=== PATIENT | male | born 1955 | race Caucasian/White ===

== ENCOUNTER 2020-12-12 10:45 | Inpatient (IN) ==
[2020-12-12] MEDS ORDERED: 0.9 % SODIUM CHLORIDE 2,000 ML IV ONE (11:11)
[2020-12-12 11:50] LABS: POC INR 1.1 (0.8-1.2); POC Pro Time 12.8 sec (11.9-14.5)
[2020-12-12 12:22] LABS: Basophils # (Auto) 0.06 K/mcL (0.00-0.30); Basophils % (Auto) 0.4 % (0.0-2.0); Eosinophils # (Auto) 0.14 K/mcL (0.00-0.70); Hemoglobin 13.3 g/dL (13.7-17.5); Lymphocytes # (Auto) 1.27 K/mcL (1.50-4.80); Lymphocytes % (Auto) 8.7 % (15.5-49.0); Mean Cell Volume 86.4 fL (80.0-100.0); Mean Corpuscular HGB Conc 35.9 g/dL (31.0-36.0); Monocytes # (Auto) 1.29 K/mcL (0.10-0.90); Monocytes % (Auto) 8.9 % (1.0-12.0); Platelet Count 156 K/mcL (140-440); RBC 4.28 M/mcL (4.63-6.08); WBC 14.5 K/mcL (4.5-11.0)
[2020-12-12] MEDS ORDERED: ONDANSETRON 4 MG/2 ML VIAL IV ONE (12:30)
[2020-12-12] MEDS ORDERED: 0.9 % SODIUM CHLORIDE 1,000 ML IV ONE (12:30)
[2020-12-12] MEDS ORDERED: KETOROLAC 30 MG/ML VIAL IV ONE (12:31)
[2020-12-12] MEDS ORDERED: morphine 2 MG/ML VIAL IV ONE ×2 (12:31→22:27)
--- NOTE | 2020-12-12 12:33 | Emergency Department Note ---
Alcohol HPI <Jolene Quiñonez PA-C - Last Filed: 12/13/20 12:58> General Chief Complaint: Alcohol Stated Complaint: alcohol Time Seen by Provider: 12/12/20 11:10 Source: patient Mode of arrival: ambulatory Limitations: no limitations History of Present Illness HPI Narrative: 65-year-old male with history of alcohol use disorder and pancreatitis presents after a 7-day rose of drinking alcohol after being sober for 7 years. His last alcoholic beverage was 2 days ago. He states that he sta rted developing abdominal pain consistent with his history of pancreatitis. He's also had some nausea and vomiting. He called EMS this morning after not being able to get out of bed and EMS reports that he was laying in his own urine and feces. The patient is on pancreatic enzymes. He reports that he's had an episode of pancreatitis in the past. Unknown if he is been through alcohol withdrawals. He does endorse a history of liver cirrhosis. No previous history of GI bleeds. Related Data Home Medications Medication Instructions Recorded Confirmed blood sugar diagnostic 10/29/15 11/19/20 lancets 28 gauge 10/29/15 11/19/20 gabapentin 100 mg capsule 300 mg PO QDAY cap 02/16/20 12/13/20 dicyclomine 10 mg capsule 10 mg PO BID 03/11/20 12/13/20 Previous Rx's Medication Instructions Recorded pravastatin 20 mg tablet 20 mg PO QDAY #90 tab 02/16/20 acyclovir 400 mg tablet 400 mg PO TID PRN #15 tab 05/16/20 allopurinol 100 mg tablet 100 mg PO QDAY #90 tab 10/29/20 finasteride 5 mg tablet 5 mg PO QDAY #90 tab 11/01/20 tamsulosin 0.4 mg capsule 0.4 mg PO QDAY #180 cap 11/01/20 omeprazole 20 mg capsule,delayed 20 mg PO QDAY #90 cap 11/13/20 release losartan 25 mg tablet 25 mg PO QDAY #90 tab 12/12/20 Allergies Allergy/AdvReac Type Severity Reaction Status Date / Time No Known Drug Allergies Allergy Unknown Verified 11/19/20 08:58 [NO KNOWN DRUG ALLERGIES] Grasses/Dust Allergy Unknown Unknown Uncoded 11/19/20 08:58 Review of Systems <Jolene Quiñonez PA-C - Last Filed: 12/13/20 12:58> ROS ROS Narrative: Narrative: All systems ED: reviewed and negative except as stated. [facility] <Jolene Quiñonez PA-C - Last Filed: 12/13/20 12:58> Narrative Patient History Narrative: Narrative: Medical/Surgical/Family History All Active Problems (Updated 12/13/20 @ 12:57 by Jolene Quiñonez PA-C) Anxiety and depression (Chronic) Chronic depression (Chronic) Benign prostatic hyperplasia (Chronic) Enlarged prostate with lower urinary tract symptoms (Chronic) Vitamin D deficiency (Chronic 12/15/13) Relative polycythemia (Chronic) Essential hypertension (Chronic) Allergic rhinitis (Chronic) Periodontitis (Chronic) Gastroesophageal reflux disease (Chronic) Chronic pancreatitis (Chronic) Primary erectile dysfunction (Chronic) Herpes labialis (Chronic) Onychomycosis of toenail (Chronic) Candidiasis of skin (Chronic) Tubular adenoma of colon (Chronic) Hyperlipidemia (Chronic) Gilbert's syndrome (Chronic) Seasonal allergic rhinitis (Chronic) IBS (irritable bowel syndrome) (Chronic) Steatosis of liver (Chronic) History of tobacco use (Chronic) Hepatitis A (Chronic) Overweight (Chronic) Fatigue (Chronic) 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) Arthralgia (Chronic) Diabetes mellitus with nephropathy (Chronic) Hyperuricemia (Chronic) Elevated PSA (Acute) Recurrent cold sores (Acute) Conjunctivitis, left eye (Acute) Redness of eye, left (Acute) Fatigue (Acute) Cirrhosis (Chronic) Acute on chronic pancreatitis (Acute) Rhabdomyolysis (Acute) Acute kidney injury (Acute) Feeling unwell (Acute) Medical History Abdominal pain Allergic rhinitis Anxiety and depression Benign prostatic hyperplasia Candidiasis of skin Chronic depression Chronic pancreatitis Cirrhosis Cough Diabetes mellitus with nephropathy Elbow swelling Enlarged prostate with lower urinary tract symptoms Essential hypertension Fatigue Fatigue Feeling unwell Gastroesophageal reflux disease Gilbert's syndrome Hepatitis A Herpes labialis History of tobacco use Hyperlipidemia Hyperuricemia IBS (irritable bowel syndrome) Knee pain Medicare annual wellness visit, initial Musculoskeletal pain Nausea Need for hepatitis C screening test Obesity On mcc drug therapy Onychomycosis of toenail Overweight Periodontitis Primary erectile dysfunction Recurrent cold sores Redness of eye, left Relative polycythemia Screening for HIV (human immunodeficiency virus) Seasonal allergic rhinitis Steatosis of liver Swelling of knee Tinea corporis Tubular adenoma of colon Vitamin D deficiency (12/15/13) Surgical History H/O colonoscopy (01/11/09) H/O colonoscopy (12/29/16) History of cholecystectomy (~2013) Hx of tonsillectomy Family History Father Hypertension Pulmonary emphysema Mother Hypertension Social History Smoking Status: Former smoker Alcohol Intake Frequency: does not drink Substance Use: former substance user Exam <Jolene Quiñonez PA-C - Last Filed: 12/13/20 12:58> Narrative Narrative: General: AOx3, NAD, nontoxic appearing. Pleasant and conversant. HEENT: PERRL, EOMI, normocephalic. Dry mucous membranes. Normal facies and normal dentition. Chest: Symmetric, no pain to palpation Respiratory: Lungs clear to auscultation bilaterally. No respiratory distress. Unlabored breathing. Heart: Tachycardic rate and regular rhythm, no murmurs/clicks/rubs. Abdomen: Diffusely tender, distended, normal bowel tones. No organomegaly. Extremities: Warm and well perfused. Trace bilateral edema. DP 2+ bilaterally. No venous stasis. Neuro: No focal deficits. Cranial nerves II-XII normal. Skin: Warm dry, no rashes or lesions, no cyanosis. Psych: Normal mood and affect Heme/Lymph: No abnormal bruising General Limitations: no limitations Course <Jolene Quiñonez PA-C - Last Filed: 12/13/20 12:58> Reevaluation(s) Reevaluation #1: CBC, CMP, UA Give IV fluids, IV analgesics and antiemetics Time: 12:55 Reevaluation #2: Patient with episode of SVT with a rate of 184 bpm, vagal maneuvers slowed his rate down to 120 bpm with repeat EKG showing sinus rhythm with frequent PACs. This was staffed with the ER physician who recommended 10 mg of diltiazem. Still awaiting laboratory values to return. Urine dip was without infectious markers. It did note glucose and RBCs. It was not sent for culture. Reevaluation #3: Patient has an JERROD with a creatinine of 1.7 and elevated BUN. His potassium is 5.5 with sodium of 132. He is also noted to have a lipase of 534 consistent with acute pancreatitis. CK is elevated at 909. Troponin is less than 0.01 with multiple repeat EKG showing no acute ischemic changes. Finally, his CBC shows a white blood cell count of 14,500 with neutrophilia and left shift. Lactic acid is 2.0. Additional Reevaluation(s): Patient is receiving another liter of IV fluids. He is given a 2g IV magnesium rider and 100 mg of IV thiamine. He continues to have episodes of SVT. Acute alcohol withdrawal was considered, but his CIWA scores have been around 3. He does appear anxious and we will give him 1 mg of IV Ativan x1 dose for risk of EtOH withdrawal at this time I believe he meets criteria for admission for acute pancreatitis, JERROD, and mild rhabdomyolysis. I have reached out to the hospitalist to discuss admission. Hospitalist service is currently capped and not taking new admissions. The patient has declined transfer out of the area. I have evaluated the patient for functional status and he is currently unable to perform basic ADLs. He has no caregiver at home. Labs are worsening with creatinine now 2.0 and potassium 5.6. At this point I think he needs to stay in the ER for observation and we will continue to look for beds locally in the morning. Vital Signs Vital signs: Vital Signs Temperature 97.3 F 12/12/20 10:46 Pulse Rate 65 12/12/20 10:46 Respiratory Rate 16 12/12/20 10:46 Blood Pressure 139/96 12/12/20 10:46 Pulse Oximetry (%) 98 12/12/20 10:46 Temperature 97.3 F 12/12/20 10:46 Pulse Rate 93 H 12/13/20 22:04 Respiratory Rate 13 12/13/20 22:04 Blood Pressure 142/81 12/13/20 20:30 Pulse Oximetry (%) 99 12/13/20 22:04 [facility] <Jolene Quiñonez PA-C - Last Filed: 12/13/20 12:58> [facility] Narrative Medical decision making narrative: EtOH use disorder Acute on chronic pancreatitis Rhabdomylosis Acute kidney injury Leukocytosis SVT Patient is not safe to discharge home and there are currently no beds available locally. He is declining transfer out of the area. There are potentially beds available here, but we will likely need to wait until tomorrow morning. Patient will remain in the ER tonight for observation. We will repeat labs around mid night. I signed the patient out to Dr. Alberts at change of shift, please see his note for further details and plan of care. Lab Data Result diagrams: 12/13/20 00:15 12/13/20 00:15 Labs: Lab Results 12/12/20 12/12/20 12/12/20 Range/Units 11:34 11:34 11:34 WBC 14.5 H (4.5-11.0) K/mcL RBC 4.28 L (4.63-6.08) M/mcL Hgb 13.3 L (13.7-17.5) g/dL Hct 37.0 L (40.1-51.0) % MCV 86.4 (80.0-100.0) fL MCH 31.1 (26.0-34.0) pg MCHC 35.9 (31.0-36.0) g/dL RDW 13.0 (11.5-14.5) % Plt Count 156 (140-440) K/mcL MPV 10.0 (7.4-10.4) fL Neut % (Auto) 81.0 H (38.0-78.0) % Lymph % (Auto) 8.7 L (15.5-49.0) % [place] % (Auto) 8.9 (1.0-12.0) % Eos % (Auto) 1.0 (0.0-7.0) % Baso % (Auto) 0.4 (0.0-2.0) % Lymph # (Auto) 1.27 L (1.50-4.80) K/mcL [place] # (Auto) 1.29 H (0.10-0.90) K/mcL Eos # (Auto) 0.14 (0.00-0.70) K/mcL Baso # (Auto) 0.06 (0.00-0.30) K/mcL Seg Neutrophils % (38-78) % Band Neutrophils % (0-10) % Lymphocytes % (15-49) % Monocytes % (Manual) (1-12) % Absolute Neutrophils 11.77 H (1.80-8.00) K/mcL Platelet Estimate (Normal) RBC Morphology (Normal) POC PT 12.8 (11.9-14.5) sec POC INR 1.1 (0.8-1.2) VBG Lactic Acid (0.5-2.0) mmol/L Sodium 132 L (133-145) mmol/L Potassium 5.5 H (3.3-5.1) mmol/L Chloride 94 L (96-108) mmol/L Carbon Dioxide 17 L (22-30) mmol/L Anion Gap 21.0 H (8.0-16.0) BUN 64 H (8-23) mg/dL Creatinine 1.7 H (0.7-1.2) mg/dL GFR Calculation 41 Glucose 261 H (70-105) mg/dL Calcium 9.0 (8.6-10.4) mg/dL Total Bilirubin 1.1 H (0.1-1.0) mg/dL AST 106 H (<40) U/L ALT 86 H (<40) U/L Alkaline Phosphatase 113 (39-117) U/L Total Creatine Kinase 909 H (24-195) U/L Troponin T (<0.03) ng/mL Total Protein 7.1 (5.9-8.4) gm/dL Albumin 3.5 (3.2-5.2) gm/dL Globulin 3.6 (2.2-3.7) gm/dL Albumin/Globulin Ratio 1.0 (1.0-2.3) Lipase 534 H (7-60) U/L Ethyl Alcohol (<0.010) gm/dL 12/12/20 12/12/20 12/12/20 Range/Units 11:34 13:16 13:16 WBC (4.5-11.0) K/mcL RBC (4.63-6.08) M/mcL Hgb (13.7-17.5) g/dL Hct (40.1-51.0) % MCV (80.0-100.0) fL MCH (26.0-34.0) pg MCHC (31.0-36.0) g/dL RDW (11.5-14.5) % Plt Count (140-440) K/mcL MPV (7.4-10.4) fL Neut % (Auto) (38.0-78.0) % Lymph % (Auto) (15.5-49.0) % [place] % (Auto) (1.0-12.0) % Eos % (Auto) (0.0-7.0) % Baso % (Auto) (0.0-2.0) % Lymph # (Auto) (1.50-4.80) K/mcL [place] # (Auto) (0.10-0.90) K/mcL Eos # (Auto) (0.00-0.70) K/mcL Baso # (Auto) (0.00-0.30) K/mcL Seg Neutrophils % (38-78) % Band Neutrophils % (0-10) % Lymphocytes % (15-49) % Monocytes % (Manual) (1-12) % Absolute Neutrophils (1.80-8.00) K/mcL Platelet Estimate (Normal) RBC Morphology (Normal) POC PT (11.9-14.5) sec POC INR (0.8-1.2) VBG Lactic Acid 2.0 (0.5-2.0) mmol/L Sodium (133-145) mmol/L Potassium (3.3-5.1) mmol/L Chloride (96-108) mmol/L Carbon Dioxide (22-30) mmol/L Anion Gap (8.0-16.0) BUN (8-23) mg/dL Creatinine (0.7-1.2) mg/dL GFR Calculation Glucose (70-105) mg/dL Calcium (8.6-10.4) mg/dL Total Bilirubin (0.1-1.0) mg/dL AST (<40) U/L ALT (<40) U/L Alkaline Phosphatase (39-117) U/L Total Creatine Kinase (24-195) U/L Troponin T < 0.01 (<0.03) ng/mL Total Protein (5.9-8.4) gm/dL Albumin (3.2-5.2) gm/dL Globulin (2.2-3.7) gm/dL Albumin/Globulin Ratio (1.0-2.3) Lipase (7-60) U/L Ethyl Alcohol < 0.010 (<0.010) gm/dL 12/12/20 12/13/20 12/13/20 Range/Units 15:47 00:15 00:15 WBC 10.8 (4.5-11.0) K/mcL RBC 3.95 L (4.63-6.08) M/mcL Hgb 12.5 L (13.7-17.5) g/dL Hct 33.6 L (40.1-51.0) % MCV 85.1 (80.0-100.0) fL MCH 31.6 (26.0-34.0) pg MCHC 37.2 H (31.0-36.0) g/dL RDW 12.8 (11.5-14.5) % Plt Count 126 L (140-440) K/mcL MPV 9.6 (7.4-10.4) fL Neut % (Auto) (38.0-78.0) % Lymph % (Auto) (15.5-49.0) % [place] % (Auto) (1.0-12.0) % Eos % (Auto) (0.0-7.0) % Baso % (Auto) (0.0-2.0) % Lymph # (Auto) (1.50-4.80) K/mcL [place] # (Auto) (0.10-0.90) K/mcL Eos # (Auto) (0.00-0.70) K/mcL Baso # (Auto) (0.00-0.30) K/mcL Seg Neutrophils % 76 (38-78) % Band Neutrophils % 1 (0-10) % Lymphocytes % 15 (15-49) % Monocytes % (Manual) 8 (1-12) % Absolute Neutrophils (1.80-8.00) K/mcL Platelet Estimate Decreased A (Normal) RBC Morphology Normal (Normal) POC PT (11.9-14.5) sec POC INR (0.8-1.2) VBG Lactic Acid (0.5-2.0) mmol/L Sodium 134 132 L (133-145) mmol/L Potassium 5.6 H 4.8 (3.3-5.1) mmol/L Chloride 99 98 (96-108) mmol/L Carbon Dioxide 19 L 21 L (22-30) mmol/L Anion Gap 16.0 13.0 (8.0-16.0) BUN 58 H 61 H (8-23) mg/dL Creatinine 2.0 H 2.0 H (0.7-1.2) mg/dL GFR Calculation 33 33 Glucose 238 H 253 H (70-105) mg/dL Calcium 8.0 L 7.9 L (8.6-10.4) mg/dL Total Bilirubin 1.0 1.1 H (0.1-1.0) mg/dL AST 84 H 69 H (<40) U/L ALT 71 H 69 H (<40) U/L Alkaline Phosphatase 96 96 (39-117) U/L Total Creatine Kinase 485 H (24-195) U/L Troponin T (<0.03) ng/mL Total Protein 6.1 6.3 (5.9-8.4) gm/dL Albumin 2.9 L 3.0 L (3.2-5.2) gm/dL Globulin 3.2 3.3 (2.2-3.7) gm/dL Albumin/Globulin Ratio 0.9 L 0.9 L (1.0-2.3) Lipase (7-60) U/L Ethyl Alcohol (<0.010) gm/dL ED POC Tests ED POC Tests: [place] - SARS Antigen Negative Discharge Plan Patient/Caregiver Discharge Instructions Pt seen by GROUNDSKEEPER SUPERVISOR/PA only: No Clinical Impression: Acute on chronic pancreatitis, Rhabdomyolysis, Acute kidney injury Patient Disposition: Xfer As Inpt ([facility]) Condition: Fair Follow up with: Cordell Cruz MD [Primary Care Provider] - Prescriptions: No Action acyclovir 400 mg tablet 400 mg PO TID PRN (Reason: cold sores) Qty: 15 RF: 2 allopurinol 100 mg tablet 100 mg PO QDAY Qty: 90 RF: 1 omeprazole 20 mg capsule,delayed release(DR/EC) 20 mg PO QDAY Qty: 90 RF: 1 losartan 25 mg tablet 25 mg PO QDAY Qty: 90 RF: 1 (DME) blood sugar diagnostic [True Metrix Glucose Test Strip] strip See Dose Instructions .ROUTE .MEDSUPPLY RF: 0 (DME) lancets [TRUEplus Lancets] 28 gauge misc See Dose Instructions .ROUTE .MEDSUPPLY RF: 0 gabapentin 100 mg capsule 300 mg PO QDAY RF: 0 pravastatin 20 mg tablet 20 mg PO QDAY Qty: 90 RF: 1 dicyclomine 10 mg capsule 10 mg PO BID RF: 0 tamsulosin [Flomax] 0.4 mg capsule 0.4 mg PO QDAY Qty: 180 RF: 5 finasteride 5 mg tablet 5 mg PO QDAY Qty: 90 RF: 3
[2020-12-12 12:40] LABS: Alcohol, Blood < 10.0 mg/dL; Alcohol,Blood < 0.010 gm/dL (<0.010)
[2020-12-12 12:44] LABS: ALT/SGPT 86 U/L (<40); AST/SGOT 106 U/L (<40); Albumin 3.5 gm/dL (3.2-5.2); Alkaline Phosphatase 113 U/L (39-117); Bilirubin,Total 1.1 mg/dL (0.1-1.0); Blood Urea Nitrogen 64 mg/dL (8-23); Carbon Dioxide 17 mmol/L (22-30); Chloride 94 mmol/L (96-108); Creatine Kinase 909 U/L (24-195); Globulin 3.6 gm/dL (2.2-3.7); Glomerular Filtration Rate 41; Glucose 261 mg/dL (70-105)
[2020-12-12] MEDS ORDERED: ADENOSINE 3 MG/ML VIAL IV ONE (12:54)
[2020-12-12] MEDS ORDERED: morphine 4 MG/ML VIAL IV ONE (13:02)
[2020-12-12] MEDS ORDERED: DILTIAZEM 25 MG/5 ML VIAL IV ONE (13:02)
--- NOTE | 2020-12-12 13:05 | Emergency Department Note ---
ED Note Addendum Note Addendum: I evaluated and treated this patient in conjunction with the LAUREN. I agree with their documented history, examination and medical decision making as documented separately. I also evaluated the patient in person with the following additional findings: Patient is complaining of abdominal pain. Mucous membranes are dry. His abdomen is soft and moderately tender to palpation diffusely without guarding or rebound tenderness. Patient developed rapid narrow complex tachycardia at approximately 1 PM. I evaluated him in person. He performed vagal maneuvers with a passive leg raise and had transient resolution of the apparent supraventricular tachycardia. However, he quickly had redevelopment of rapid narrow complex tachycardia that appears consistent with SVT or a flutter with a 2-1 block. We will administer diltiazem and reassess. EKG performed at 12:55 PM: Atrial flutter with block, rate 184. Grossly normal P axis. Normal QRS and QTc duration. No ST segment deviation. No old EKG immediately available for comparison. EKG was interpreted by me. EKG performed at 2:03 PM: Sinus rhythm with few PACs, rate 102. Normal P wave QRS and T wave morphology. No ST segment deviation. Normal NC QRS and QTc duration. Compared to the prior EKG sinus rhythm has replaced atrial flutter as the rhythm. There are no ischemic changes. EKG was interpreted by me.
[2020-12-12] MEDS ORDERED: THIAMINE 100 MG in 0.9 % SODIUM CHLORIDE 50 ML IV ONE (14:08)
[2020-12-12] MEDS ORDERED: MAGNESIUM SULFATE 2 GM/50 ML BAG IV ONE (14:27)
[2020-12-12] MEDS ORDERED: LORazepam 2 MG/ML VIAL IV ONE (14:28)
[2020-12-12] MEDS ORDERED: THIAMINE 100 MG/ML VIAL ONE (15:54)
[2020-12-12 16:41] LABS: ALT/SGPT 71 U/L (<40); AST/SGOT 84 U/L (<40); Albumin 2.9 gm/dL (3.2-5.2); Albumin/Globulin Ratio 0.9 (1.0-2.3); Alkaline Phosphatase 96 U/L (39-117); Blood Urea Nitrogen 58 mg/dL (8-23); Carbon Dioxide 19 mmol/L (22-30); Chloride 99 mmol/L (96-108); Globulin 3.2 gm/dL (2.2-3.7); Glomerular Filtration Rate 33; Glucose 238 mg/dL (70-105)
[2020-12-13 00:48] LABS: Hematocrit 33.6 % (40.1-51.0); Hemoglobin 12.5 g/dL (13.7-17.5); Mean Cell Volume 85.1 fL (80.0-100.0); Mean Corpuscular HGB Conc 37.2 g/dL (31.0-36.0); Mean Platelet Volume 9.6 fL (7.4-10.4); Platelet Count 126 K/mcL (140-440); RBC 3.95 M/mcL (4.63-6.08); Red Cell Distribution Width 12.8 % (11.5-14.5); WBC 10.8 K/mcL (4.5-11.0)
[2020-12-13 01:04] LABS: ALT/SGPT 69 U/L (<40); AST/SGOT 69 U/L (<40); Albumin/Globulin Ratio 0.9 (1.0-2.3); Alkaline Phosphatase 96 U/L (39-117); Bilirubin,Total 1.1 mg/dL (0.1-1.0); Blood Urea Nitrogen 61 mg/dL (8-23); Calcium 7.9 mg/dL (8.6-10.4); Carbon Dioxide 21 mmol/L (22-30); Chloride 98 mmol/L (96-108); Creatine Kinase 485 U/L (24-195); Globulin 3.3 gm/dL (2.2-3.7); Glomerular Filtration Rate 33; Glucose 253 mg/dL (70-105)
[2020-12-13] MEDS ORDERED: morphine 2 MG/ML VIAL IV ONE ×2 (01:24→04:49)
[2020-12-13 07:15] LABS: Band Neutrophils % 1 % (0-10); Lymphocytes % 15 % (15-49); Monocytes % (Manual) 8 % (1-12); Platelet Estimate DECREASED (Normal); RBC Morphology NORMAL (Normal); Segmented Neutrophils % 76 % (38-78)
--- NOTE | 2020-12-13 08:10 | Emergency Department Note ---
Course Vital Signs Vital signs: Vital Signs Temperature 97.3 F 12/12/20 10:46 Pulse Rate 65 12/12/20 10:46 Respiratory Rate 16 12/12/20 10:46 Blood Pressure 139/96 12/12/20 10:46 Pulse Oximetry (%) 98 12/12/20 10:46 Temperature 97.3 F 12/12/20 10:46 Pulse Rate 98 H 12/13/20 14:01 Respiratory Rate 21 12/13/20 14:01 Blood Pressure 141/85 12/13/20 14:01 Pulse Oximetry (%) 97 12/13/20 14:01 [facility] MDM Narrative Medical decision making narrative: I assumed care from Dr. Alberts at the change of shift. I evaluated the patient in person at 8 AM. He is resting comfortably and awakens to verbal stimuli. He denies pain at this time but is having continued nausea. Mucous membranes appear significantly dry. We will continue IV hydration and continue to search for inpatient placement as his renal function remains significantly below his baseline. Patient was admitted to the hospitalist service. Lab Data Lab results reviewed: Yes I reviewed the patient's lab results. Result diagrams: 12/13/20 00:15 12/13/20 00:15 Labs: Lab Results 12/12/20 12/12/20 12/12/20 Range/Units 11:34 11:34 11:34 WBC 14.5 H (4.5-11.0) K/mcL RBC 4.28 L (4.63-6.08) M/mcL Hgb 13.3 L (13.7-17.5) g/dL Hct 37.0 L (40.1-51.0) % MCV 86.4 (80.0-100.0) fL MCH 31.1 (26.0-34.0) pg MCHC 35.9 (31.0-36.0) g/dL RDW 13.0 (11.5-14.5) % Plt Count 156 (140-440) K/mcL MPV 10.0 (7.4-10.4) fL Neut % (Auto) 81.0 H (38.0-78.0) % Lymph % (Auto) 8.7 L (15.5-49.0) % [place] % (Auto) 8.9 (1.0-12.0) % Eos % (Auto) 1.0 (0.0-7.0) % Baso % (Auto) 0.4 (0.0-2.0) % Lymph # (Auto) 1.27 L (1.50-4.80) K/mcL [place] # (Auto) 1.29 H (0.10-0.90) K/mcL Eos # (Auto) 0.14 (0.00-0.70) K/mcL Baso # (Auto) 0.06 (0.00-0.30) K/mcL Seg Neutrophils % (38-78) % Band Neutrophils % (0-10) % Lymphocytes % (15-49) % Monocytes % (Manual) (1-12) % Absolute Neutrophils 11.77 H (1.80-8.00) K/mcL Platelet Estimate (Normal) RBC Morphology (Normal) POC PT 12.8 (11.9-14.5) sec POC INR 1.1 (0.8-1.2) VBG Lactic Acid (0.5-2.0) mmol/L Sodium 132 L (133-145) mmol/L Potassium 5.5 H (3.3-5.1) mmol/L Chloride 94 L (96-108) mmol/L Carbon Dioxide 17 L (22-30) mmol/L Anion Gap 21.0 H (8.0-16.0) BUN 64 H (8-23) mg/dL Creatinine 1.7 H (0.7-1.2) mg/dL GFR Calculation 41 Glucose 261 H (70-105) mg/dL Calcium 9.0 (8.6-10.4) mg/dL Total Bilirubin 1.1 H (0.1-1.0) mg/dL AST 106 H (<40) U/L ALT 86 H (<40) U/L Alkaline Phosphatase 113 (39-117) U/L Total Creatine Kinase 909 H (24-195) U/L Troponin T (<0.03) ng/mL Total Protein 7.1 (5.9-8.4) gm/dL Albumin 3.5 (3.2-5.2) gm/dL Globulin 3.6 (2.2-3.7) gm/dL Albumin/Globulin Ratio 1.0 (1.0-2.3) Lipase 534 H (7-60) U/L Ethyl Alcohol (<0.010) gm/dL 12/12/20 12/12/20 12/12/20 Range/Units 11:34 13:16 13:16 WBC (4.5-11.0) K/mcL RBC (4.63-6.08) M/mcL Hgb (13.7-17.5) g/dL Hct (40.1-51.0) % MCV (80.0-100.0) fL MCH (26.0-34.0) pg MCHC (31.0-36.0) g/dL RDW (11.5-14.5) % Plt Count (140-440) K/mcL MPV (7.4-10.4) fL Neut % (Auto) (38.0-78.0) % Lymph % (Auto) (15.5-49.0) % [place] % (Auto) (1.0-12.0) % Eos % (Auto) (0.0-7.0) % Baso % (Auto) (0.0-2.0) % Lymph # (Auto) (1.50-4.80) K/mcL [place] # (Auto) (0.10-0.90) K/mcL Eos # (Auto) (0.00-0.70) K/mcL Baso # (Auto) (0.00-0.30) K/mcL Seg Neutrophils % (38-78) % Band Neutrophils % (0-10) % Lymphocytes % (15-49) % Monocytes % (Manual) (1-12) % Absolute Neutrophils (1.80-8.00) K/mcL Platelet Estimate (Normal) RBC Morphology (Normal) POC PT (11.9-14.5) sec POC INR (0.8-1.2) VBG Lactic Acid 2.0 (0.5-2.0) mmol/L Sodium (133-145) mmol/L Potassium (3.3-5.1) mmol/L Chloride (96-108) mmol/L Carbon Dioxide (22-30) mmol/L Anion Gap (8.0-16.0) BUN (8-23) mg/dL Creatinine (0.7-1.2) mg/dL GFR Calculation Glucose (70-105) mg/dL Calcium (8.6-10.4) mg/dL Total Bilirubin (0.1-1.0) mg/dL AST (<40) U/L ALT (<40) U/L Alkaline Phosphatase (39-117) U/L Total Creatine Kinase (24-195) U/L Troponin T < 0.01 (<0.03) ng/mL Total Protein (5.9-8.4) gm/dL Albumin (3.2-5.2) gm/dL Globulin (2.2-3.7) gm/dL Albumin/Globulin Ratio (1.0-2.3) Lipase (7-60) U/L Ethyl Alcohol < 0.010 (<0.010) gm/dL 12/12/20 12/13/20 12/13/20 Range/Units 15:47 00:15 00:15 WBC 10.8 (4.5-11.0) K/mcL RBC 3.95 L (4.63-6.08) M/mcL Hgb 12.5 L (13.7-17.5) g/dL Hct 33.6 L (40.1-51.0) % MCV 85.1 (80.0-100.0) fL MCH 31.6 (26.0-34.0) pg MCHC 37.2 H (31.0-36.0) g/dL RDW 12.8 (11.5-14.5) % Plt Count 126 L (140-440) K/mcL MPV 9.6 (7.4-10.4) fL Neut % (Auto) (38.0-78.0) % Lymph % (Auto) (15.5-49.0) % [place] % (Auto) (1.0-12.0) % Eos % (Auto) (0.0-7.0) % Baso % (Auto) (0.0-2.0) % Lymph # (Auto) (1.50-4.80) K/mcL [place] # (Auto) (0.10-0.90) K/mcL Eos # (Auto) (0.00-0.70) K/mcL Baso # (Auto) (0.00-0.30) K/mcL Seg Neutrophils % 76 (38-78) % Band Neutrophils % 1 (0-10) % Lymphocytes % 15 (15-49) % Monocytes % (Manual) 8 (1-12) % Absolute Neutrophils (1.80-8.00) K/mcL Platelet Estimate Decreased A (Normal) RBC Morphology Normal (Normal) POC PT (11.9-14.5) sec POC INR (0.8-1.2) VBG Lactic Acid (0.5-2.0) mmol/L Sodium 134 132 L (133-145) mmol/L Potassium 5.6 H 4.8 (3.3-5.1) mmol/L Chloride 99 98 (96-108) mmol/L Carbon Dioxide 19 L 21 L (22-30) mmol/L Anion Gap 16.0 13.0 (8.0-16.0) BUN 58 H 61 H (8-23) mg/dL Creatinine 2.0 H 2.0 H (0.7-1.2) mg/dL GFR Calculation 33 33 Glucose 238 H 253 H (70-105) mg/dL Calcium 8.0 L 7.9 L (8.6-10.4) mg/dL Total Bilirubin 1.0 1.1 H (0.1-1.0) mg/dL AST 84 H 69 H (<40) U/L ALT 71 H 69 H (<40) U/L Alkaline Phosphatase 96 96 (39-117) U/L Total Creatine Kinase 485 H (24-195) U/L Troponin T (<0.03) ng/mL Total Protein 6.1 6.3 (5.9-8.4) gm/dL Albumin 2.9 L 3.0 L (3.2-5.2) gm/dL Globulin 3.2 3.3 (2.2-3.7) gm/dL Albumin/Globulin Ratio 0.9 L 0.9 L (1.0-2.3) Lipase (7-60) U/L Ethyl Alcohol (<0.010) gm/dL ED POC Tests ED POC Tests: [place] - SARS Antigen Negative Discharge Plan Patient/Caregiver Discharge Instructions Pt seen by PREPAR[facility] SAMPLES AND REPAIRS/PA only: No Clinical Impression: Acute on chronic pancreatitis, Rhabdomyolysis, Acute kidney injury Patient Disposition: Xfer As Inpt ([facility]) Condition: Fair Follow up with: Cordell Cruz MD [Primary Care Provider] - Prescriptions: No Action acyclovir 400 mg tablet 400 mg PO TID PRN (Reason: cold sores) Qty: 15 RF: 2 allopurinol 100 mg tablet 100 mg PO QDAY Qty: 90 RF: 1 omeprazole 20 mg capsule,delayed release(DR/EC) 20 mg PO QDAY Qty: 90 RF: 1 losartan 25 mg tablet 25 mg PO QDAY Qty: 90 RF: 1 (DME) blood sugar diagnostic [True Metrix Glucose Test Strip] strip See Dose Instructions .ROUTE .MEDSUPPLY RF: 0 (DME) lancets [TRUEplus Lancets] 28 gauge misc See Dose Instructions .ROUTE .MEDSUPPLY RF: 0 gabapentin 100 mg capsule 300 mg PO QDAY RF: 0 pravastatin 20 mg tablet 20 mg PO QDAY Qty: 90 RF: 1 dicyclomine 10 mg capsule 10 mg PO BID RF: 0 tamsulosin [Flomax] 0.4 mg capsule 0.4 mg PO QDAY Qty: 180 RF: 5 finasteride 5 mg tablet 5 mg PO QDAY Qty: 90 RF: 3
[2020-12-13] MEDS: ONDANSETRON 4 MG/2 ML VIAL IV PRN ×2 (08:50→17:18)
[2020-12-13] MEDS: LACTATED RINGERS 1,000 ML IV SCH ×4 (10:10→23:43)
--- NOTE | 2020-12-13 12:59 | Emergency Department Note ---
Course Vital Signs Vital signs: Vital Signs Temperature 97.3 F 12/12/20 10:46 Pulse Rate 65 12/12/20 10:46 Respiratory Rate 16 12/12/20 10:46 Blood Pressure 139/96 12/12/20 10:46 Pulse Oximetry (%) 98 12/12/20 10:46 Temperature 97.3 F 12/12/20 10:46 Pulse Rate 103 H 12/13/20 15:00 Respiratory Rate 12 12/13/20 15:00 Blood Pressure 141/88 12/13/20 15:00 Pulse Oximetry (%) 98 12/13/20 15:00 MDM MDM Narrative Medical decision making narrative: I participated in the parent care of this patient with Dr. Pelaez today and signed the patient out to Dr. Marshall for admission. Lab Data Result diagrams: 12/13/20 00:15 12/13/20 00:15 Labs: Lab Results 12/12/20 12/12/20 12/12/20 Range/Units 11:34 11:34 11:34 WBC 14.5 H (4.5-11.0) K/mcL RBC 4.28 L (4.63-6.08) M/mcL Hgb 13.3 L (13.7-17.5) g/dL Hct 37.0 L (40.1-51.0) % MCV 86.4 (80.0-100.0) fL MCH 31.1 (26.0-34.0) pg MCHC 35.9 (31.0-36.0) g/dL RDW 13.0 (11.5-14.5) % Plt Count 156 (140-440) K/mcL MPV 10.0 (7.4-10.4) fL Neut % (Auto) 81.0 H (38.0-78.0) % Lymph % (Auto) 8.7 L (15.5-49.0) % Stokes % (Auto) 8.9 (1.0-12.0) % Eos % (Auto) 1.0 (0.0-7.0) % Baso % (Auto) 0.4 (0.0-2.0) % Lymph # (Auto) 1.27 L (1.50-4.80) K/mcL Stokes # (Auto) 1.29 H (0.10-0.90) K/mcL Eos # (Auto) 0.14 (0.00-0.70) K/mcL Baso # (Auto) 0.06 (0.00-0.30) K/mcL Seg Neutrophils % (38-78) % Band Neutrophils % (0-10) % Lymphocytes % (15-49) % Monocytes % (Manual) (1-12) % Absolute Neutrophils 11.77 H (1.80-8.00) K/mcL Platelet Estimate (Normal) RBC Morphology (Normal) POC PT 12.8 (11.9-14.5) sec POC INR 1.1 (0.8-1.2) VBG Lactic Acid (0.5-2.0) mmol/L Sodium 132 L (133-145) mmol/L Potassium 5.5 H (3.3-5.1) mmol/L Chloride 94 L (96-108) mmol/L Carbon Dioxide 17 L (22-30) mmol/L Anion Gap 21.0 H (8.0-16.0) BUN 64 H (8-23) mg/dL Creatinine 1.7 H (0.7-1.2) mg/dL GFR Calculation 41 Glucose 261 H (70-105) mg/dL Calcium 9.0 (8.6-10.4) mg/dL Total Bilirubin 1.1 H (0.1-1.0) mg/dL AST 106 H (<40) U/L ALT 86 H (<40) U/L Alkaline Phosphatase 113 (39-117) U/L Total Creatine Kinase 909 H (24-195) U/L Troponin T (<0.03) ng/mL Total Protein 7.1 (5.9-8.4) gm/dL Albumin 3.5 (3.2-5.2) gm/dL Globulin 3.6 (2.2-3.7) gm/dL Albumin/Globulin Ratio 1.0 (1.0-2.3) Lipase 534 H (7-60) U/L Ethyl Alcohol (<0.010) gm/dL 12/12/20 12/12/20 12/12/20 Range/Units 11:34 13:16 13:16 WBC (4.5-11.0) K/mcL RBC (4.63-6.08) M/mcL Hgb (13.7-17.5) g/dL Hct (40.1-51.0) % MCV (80.0-100.0) fL MCH (26.0-34.0) pg MCHC (31.0-36.0) g/dL RDW (11.5-14.5) % Plt Count (140-440) K/mcL MPV (7.4-10.4) fL Neut % (Auto) (38.0-78.0) % Lymph % (Auto) (15.5-49.0) % Stokes % (Auto) (1.0-12.0) % Eos % (Auto) (0.0-7.0) % Baso % (Auto) (0.0-2.0) % Lymph # (Auto) (1.50-4.80) K/mcL Stokes # (Auto) (0.10-0.90) K/mcL Eos # (Auto) (0.00-0.70) K/mcL Baso # (Auto) (0.00-0.30) K/mcL Seg Neutrophils % (38-78) % Band Neutrophils % (0-10) % Lymphocytes % (15-49) % Monocytes % (Manual) (1-12) % Absolute Neutrophils (1.80-8.00) K/mcL Platelet Estimate (Normal) RBC Morphology (Normal) POC PT (11.9-14.5) sec POC INR (0.8-1.2) VBG Lactic Acid 2.0 (0.5-2.0) mmol/L Sodium (133-145) mmol/L Potassium (3.3-5.1) mmol/L Chloride (96-108) mmol/L Carbon Dioxide (22-30) mmol/L Anion Gap (8.0-16.0) BUN (8-23) mg/dL Creatinine (0.7-1.2) mg/dL GFR Calculation Glucose (70-105) mg/dL Calcium (8.6-10.4) mg/dL Total Bilirubin (0.1-1.0) mg/dL AST (<40) U/L ALT (<40) U/L Alkaline Phosphatase (39-117) U/L Total Creatine Kinase (24-195) U/L Troponin T < 0.01 (<0.03) ng/mL Total Protein (5.9-8.4) gm/dL Albumin (3.2-5.2) gm/dL Globulin (2.2-3.7) gm/dL Albumin/Globulin Ratio (1.0-2.3) Lipase (7-60) U/L Ethyl Alcohol < 0.010 (<0.010) gm/dL 12/12/20 12/13/20 12/13/20 Range/Units 15:47 00:15 00:15 WBC 10.8 (4.5-11.0) K/mcL RBC 3.95 L (4.63-6.08) M/mcL Hgb 12.5 L (13.7-17.5) g/dL Hct 33.6 L (40.1-51.0) % MCV 85.1 (80.0-100.0) fL MCH 31.6 (26.0-34.0) pg MCHC 37.2 H (31.0-36.0) g/dL RDW 12.8 (11.5-14.5) % Plt Count 126 L (140-440) K/mcL MPV 9.6 (7.4-10.4) fL Neut % (Auto) (38.0-78.0) % Lymph % (Auto) (15.5-49.0) % Stokes % (Auto) (1.0-12.0) % Eos % (Auto) (0.0-7.0) % Baso % (Auto) (0.0-2.0) % Lymph # (Auto) (1.50-4.80) K/mcL Stokes # (Auto) (0.10-0.90) K/mcL Eos # (Auto) (0.00-0.70) K/mcL Baso # (Auto) (0.00-0.30) K/mcL Seg Neutrophils % 76 (38-78) % Band Neutrophils % 1 (0-10) % Lymphocytes % 15 (15-49) % Monocytes % (Manual) 8 (1-12) % Absolute Neutrophils (1.80-8.00) K/mcL Platelet Estimate Decreased A (Normal) RBC Morphology Normal (Normal) POC PT (11.9-14.5) sec POC INR (0.8-1.2) VBG Lactic Acid (0.5-2.0) mmol/L Sodium 134 132 L (133-145) mmol/L Potassium 5.6 H 4.8 (3.3-5.1) mmol/L Chloride 99 98 (96-108) mmol/L Carbon Dioxide 19 L 21 L (22-30) mmol/L Anion Gap 16.0 13.0 (8.0-16.0) BUN 58 H 61 H (8-23) mg/dL Creatinine 2.0 H 2.0 H (0.7-1.2) mg/dL GFR Calculation 33 33 Glucose 238 H 253 H (70-105) mg/dL Calcium 8.0 L 7.9 L (8.6-10.4) mg/dL Total Bilirubin 1.0 1.1 H (0.1-1.0) mg/dL AST 84 H 69 H (<40) U/L ALT 71 H 69 H (<40) U/L Alkaline Phosphatase 96 96 (39-117) U/L Total Creatine Kinase 485 H (24-195) U/L Troponin T (<0.03) ng/mL Total Protein 6.1 6.3 (5.9-8.4) gm/dL Albumin 2.9 L 3.0 L (3.2-5.2) gm/dL Globulin 3.2 3.3 (2.2-3.7) gm/dL Albumin/Globulin Ratio 0.9 L 0.9 L (1.0-2.3) Lipase (7-60) U/L Ethyl Alcohol (<0.010) gm/dL ED POC Tests ED POC Tests: [place] - SARS Antigen Negative Discharge Plan Patient/Caregiver Discharge Instructions Pt seen by MECHANICAL DESIGN DRAFTER/PA only: No Clinical Impression: Acute on chronic pancreatitis, Rhabdomyolysis, Acute kidney injury Patient Disposition: Xfer As Inpt ([facility]) Condition: Fair Follow up with: Cordell Cruz MD [Primary Care Provider] - Prescriptions: No Action acyclovir 400 mg tablet 400 mg PO TID PRN (Reason: cold sores) Qty: 15 RF: 2 allopurinol 100 mg tablet 100 mg PO QDAY Qty: 90 RF: 1 omeprazole 20 mg capsule,delayed release(DR/EC) 20 mg PO QDAY Qty: 90 RF: 1 losartan 25 mg tablet 25 mg PO QDAY Qty: 90 RF: 1 (DME) blood sugar diagnostic [True Metrix Glucose Test Strip] strip See Dose Instructions .ROUTE .MEDSUPPLY RF: 0 (DME) lancets [TRUEplus Lancets] 28 gauge misc See Dose Instructions .ROUTE .MEDSUPPLY RF: 0 gabapentin 100 mg capsule 300 mg PO QDAY RF: 0 pravastatin 20 mg tablet 20 mg PO QDAY Qty: 90 RF: 1 dicyclomine 10 mg capsule 10 mg PO BID RF: 0 tamsulosin [Flomax] 0.4 mg capsule 0.4 mg PO QDAY Qty: 180 RF: 5 finasteride 5 mg tablet 5 mg PO QDAY Qty: 90 RF: 3
[2020-12-13] MEDS ORDERED: DOCUSATE SODIUM 100 MG CAPSULE PO ONE (16:28)
[2020-12-13] MEDS ORDERED: ACETAMINOPHEN (PP) 325MG TABLET (#50) PO ONE (18:04)
[2020-12-13] MEDS ORDERED: ACETAMINOPHEN 325 MG TABLET PO ONE (18:08)
--- NOTE | 2020-12-13 19:14 | Internal Med History&Physical ---
HPI History of Present Illness Patient information: Note initiated : 12/13/20 at 6:58 pm Service Date, if different from initiated Date: [] Patient: Cruz Mccormick 65 y/o M admitted on for alcohol. Chief Complaint: [] History of present illness: Mr. Mccormick is a 65 year old male with a history of hypertension, hyperlipidemia, GERD, gout, liver cirrhosis, alcohol use disorder, multiple prior episodes of acute pancreatitis attributed to alcohol who presented to the ED after a several week binge that culminated in abdominal pain characteristic for acute pancreatitis. In the ED the patient had an elevated lipase of 534 gastric pain. The patient also had an acute kidney injury. Patient also had leukocytosis that resolved with IV fluids. Hospital medicine was asked to admit the patient for acute pancreatitis felt to be secondary to alcohol. Review of the patient's prior did not reveal any evidence of cholelithiasis. In the ED, the patient was able to keep down some liquids. He was started on IV fluid and analgesics with morphine IV as needed. The patient does say that he has a history of severe alcohol withdrawal. Prior to the recent events the patient says that he has been sober for years. Review of systems Constitutional: no fever, fatigue, or weight loss Eyes: no vision changes or pain Cardiovascular: no chest pain, no palpitations Respiratory: no cough or dyspnea Gastrointestinal: positive for abdominal pain and constipation Genitourinary: no dysuria or difficulty voiding Musculoskeletal: no arthralgia Integumentary: no skin lesion or wound Neurological: no focal weakness or numbness Psychiatric: no anxiety or depression Physical exam Head: Atraumatic, normal inspection. Eyes: normal appearance, no scleral icterus. Neck: full ROM Respiratory: no respiratory distress. Cardiovascular: normal rate and rhythm, S1, S2. GI/Abdominal: distended, decrease bowel sounds, diffuse tenderness, no guarding Extremities: right lower extremity pitting edema, full range of motion, nontender. Neurological: CN II-XII intact, intact motor, intact sensation. Psychiatric: normal mood. Skin: warm, normal color PFSH PFSH All Active Problems (Updated 12/13/20 @ 12:57 by Jolene Quiñonez PA-C) Anxiety and depression (Chronic) Chronic depression (Chronic) Benign prostatic hyperplasia (Chronic) Enlarged prostate with lower urinary tract symptoms (Chronic) Vitamin D deficiency (Chronic 12/15/13) Relative polycythemia (Chronic) Essential hypertension (Chronic) Allergic rhinitis (Chronic) Periodontitis (Chronic) Gastroesophageal reflux disease (Chronic) Chronic pancreatitis (Chronic) Primary erectile dysfunction (Chronic) Herpes labialis (Chronic) Onychomycosis of toenail (Chronic) Candidiasis of skin (Chronic) Tubular adenoma of colon (Chronic) Hyperlipidemia (Chronic) Gilbert's syndrome (Chronic) Seasonal allergic rhinitis (Chronic) IBS (irritable bowel syndrome) (Chronic) Steatosis of liver (Chronic) History of tobacco use (Chronic) Hepatitis A (Chronic) Overweight (Chronic) Fatigue (Chronic) 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) Arthralgia (Chronic) Diabetes mellitus with nephropathy (Chronic) Hyperuricemia (Chronic) Elevated PSA (Acute) Recurrent cold sores (Acute) Conjunctivitis, left eye (Acute) Redness of eye, left (Acute) Fatigue (Acute) Cirrhosis (Chronic) Acute on chronic pancreatitis (Acute) Rhabdomyolysis (Acute) Acute kidney injury (Acute) Feeling unwell (Acute) Medical History Abdominal pain Allergic rhinitis Anxiety and depression Benign prostatic hyperplasia Candidiasis of skin Chronic depression Chronic pancreatitis Cirrhosis Cough Diabetes mellitus with nephropathy Elbow swelling Enlarged prostate with lower urinary tract symptoms Essential hypertension Fatigue Fatigue Feeling unwell Gastroesophageal reflux disease Gilbert's syndrome Hepatitis A Herpes labialis History of tobacco use Hyperlipidemia Hyperuricemia IBS (irritable bowel syndrome) Knee pain Medicare annual wellness visit, initial Musculoskeletal pain Nausea Need for hepatitis C screening test Obesity On senior care drug therapy Onychomycosis of toenail Overweight Periodontitis Primary erectile dysfunction Recurrent cold sores Redness of eye, left Relative polycythemia Screening for HIV (human immunodeficiency virus) Seasonal allergic rhinitis Steatosis of liver Swelling of knee Tinea corporis Tubular adenoma of colon Vitamin D deficiency (12/15/13) Surgical History H/O colonoscopy (01/11/09) H/O colonoscopy (12/29/16) History of cholecystectomy (~2013) Hx of tonsillectomy Family History Father Hypertension Pulmonary emphysema Mother Hypertension Social History household members: alone marital status: single education level: master's degree occupational status: unemployed and retired sexually active: Yes physical activity: none alcohol intake frequency: does not drink substance use type: former substance user seatbelt use: always working smoke detector in home: Yes firearms in home: No MEDS/ALLERGIES Home Medications and Allergies Home Medications Medication Instructions Recorded Confirmed Type blood sugar diagnostic 10/29/15 11/19/20 History lancets 28 gauge 10/29/15 11/19/20 History gabapentin 100 mg capsule 300 mg PO QDAY cap 02/16/20 12/13/20 History pravastatin 20 mg tablet 20 mg PO QDAY #90 tab 02/16/20 12/13/20 Rx dicyclomine 10 mg capsule 10 mg PO BID 03/11/20 12/13/20 History acyclovir 400 mg tablet 400 mg PO TID PRN #15 tab 05/16/20 12/13/20 Rx allopurinol 100 mg tablet 100 mg PO QDAY #90 tab 10/29/20 12/13/20 Rx finasteride 5 mg tablet 5 mg PO QDAY #90 tab 11/01/20 12/13/20 Rx tamsulosin 0.4 mg capsule 0.4 mg PO QDAY #180 cap 11/01/20 12/13/20 Rx omeprazole 20 mg capsule,delayed 20 mg PO QDAY #90 cap 11/13/20 12/13/20 Rx release losartan 25 mg tablet 25 mg PO QDAY #90 tab 12/12/20 12/13/20 Rx Allergies Allergy/AdvReac Type Severity Reaction Status Date / Time No Known Drug Allergies Allergy Unknown Verified 11/19/20 08:58 [NO KNOWN DRUG ALLERGIES] Grasses/Dust Allergy Unknown Unknown Uncoded 11/19/20 08:58 EXAM Constitutional Vitals: Temp Pulse Resp BP Pulse Ox 97.3 F 96 H 14 149/79 100 12/12/20 10:46 12/13/20 18:00 12/13/20 18:00 12/13/20 18:00 12/13/20 18:00 DATA Data Completed and Pending Labs: Labs from last 24 hours 12/13/20 12/13/20 00:15 00:15 WBC 10.8 RBC 3.95 L Hgb 12.5 L Hct 33.6 L MCV 85.1 MCH 31.6 MCHC 37.2 H RDW 12.8 Plt Count 126 L MPV 9.6 Seg Neutrophils % 76 Band Neutrophils % 1 Lymphocytes % 15 Monocytes % (Manual) 8 Platelet Estimate Decreased A RBC Morphology Normal Sodium 132 L Potassium 4.8 Chloride 98 Carbon Dioxide 21 L Anion Gap 13.0 BUN 61 H Creatinine 2.0 H GFR Calculation 33 Glucose 253 H Calcium 7.9 L Total Bilirubin 1.1 H AST 69 H ALT 69 H Alkaline Phosphatase 96 Total Creatine Kinase 485 H Total Protein 6.3 Albumin 3.0 L Globulin 3.3 Albumin/Globulin Ratio 0.9 L A/P Narrative A/P Narrative: Assessment: 65 year old male with a history of hypertension, hyperlipidemia, GERD, gout, liver cirrhosis, alcohol use disorder, multiple prior episodes of acute pancreatitis attributed alcohol now admitted for acute pancreatitis likely secondary to alcohol. #Acute pancreatitis likely due to alcohol #Acute kidney injury #Elevated LFTs #Hyperglycemia #Hyponatremia #Thrombocytopenia #Possible bright red blood per rectum #Right lower extremity edema #Hypertension #Hyperlipidemia #BPH #Alcohol use disorder Plan -IV fluid, analgesic prn. -Monitor renal function and urine output. -Hold home Losartan, continue other essential home meds. -Montor LFTs. -Check CRP, Triglycerides, Hemoglobin A1C. -SSI-low. -Right lower extremity venous duplex. -Monitor stool for evidence of GI bleed. -Consider CT abdomen/pelvis if no improvement by day 3. -CIWA scoring, vitamin supplementation. -Clear liquid diet. -DVT ppx: heparin -Code status: Tab Cutter Spent With Patient Time: Total time spent is greater than 50% in coordination of care (as documented) at patient's floor/unit and/or counseling patient:
--- NOTE | 2020-12-13 19:21 | EKG ---
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
--- NOTE | 2020-12-13 19:22 | EKG ---
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
[2020-12-13] MEDS ORDERED: NALOXONE HCL 0.4 MG/ML VIAL IV PRN (22:48)
[2020-12-13] MEDS ORDERED: DEXTROSE 50% 50 ML VIAL IV PRN (22:48)
[2020-12-13] MEDS ORDERED: ONDANSETRON 4 MG/2 ML VIAL IV PRN (22:48)
[2020-12-13] MEDS ORDERED: LACTULOSE 20 GM/30 ML ORAL.SOL PO PRN (22:48)
[2020-12-13] MEDS ORDERED: DEXTROSE 31 GM ORAL.SUSP PO PRN (22:48)
[2020-12-13] MEDS: 0.9 % SODIUM CHLORIDE 10 ML SYRINGE IV SCH (23:01)
[2020-12-13] MEDS: HEPARIN 5,000 UNIT/ML VIAL SQ SCH (23:01)
[2020-12-13] MEDS: SENNOSIDES 1 TABLET PO SCH (23:02)
[2020-12-13] MEDS ORDERED: HEPARIN 5,000 UNIT/ML VIAL ONE (23:04)
[2020-12-13] MEDS: HYDROmorphone 0.5 MG/0.5 ML SYRINGE IV PRN (23:38)
[2020-12-13] MEDS ORDERED: HYDROmorphone 0.5 MG/0.5 ML SYRINGE ONE (23:41)
[2020-12-13] MEDS: INSULIN LISPRO 1 UNIT/0.01 ML UNIT SQ SCH (23:42)
[2020-12-14 01:20] LABS: ALT/SGPT 55 U/L (<40); AST/SGOT 53 U/L (<40); Albumin/Globulin Ratio 0.9 (1.0-2.3); Alkaline Phosphatase 96 U/L (39-117); Bilirubin,Direct 0.5 mg/dL (<0.3); Bilirubin,Total 0.9 mg/dL (0.1-1.0); Blood Urea Nitrogen 50 mg/dL (8-23); Calcium 7.9 mg/dL (8.6-10.4); Carbon Dioxide 20 mmol/L (22-30); Chloride 102 mmol/L (96-108); Globulin 3.2 gm/dL (2.2-3.7); Glomerular Filtration Rate 27; Glucose 182 mg/dL (70-105); Lactate Dehydrogenase 352 U/L (135-225); Phosphorous 1.6 mg/dL (2.5-4.5); Triglycerides 188 mg/dL (<150); Uric Acid 11.2 mg/dL (2.5-8.0)
[2020-12-14 01:21] LABS: HDL Cholesterol 56 mg/dL (>40); LDL Cholesterol,Calculated 48 mg/dL (<100); Non-HDL Cholesterol 85 mg/dL (<130)
[2020-12-14] MEDS: HYDROmorphone 0.5 MG/0.5 ML SYRINGE IV PRN ×3 (02:43→22:09)
[2020-12-14] MEDS ORDERED: HYDROmorphone 0.5 MG/0.5 ML SYRINGE ONE ×2 (02:47)
[2020-12-14] MEDS: LACTATED RINGERS 1,000 ML IV SCH ×4 (04:05→18:56)
[2020-12-14 05:16] LABS: Estimated Average Glucose(eAG) 143 mg/dL; Hemoglobin A1C 6.6 % Hgb (4.0-6.0)
[2020-12-14] MEDS: 0.9 % SODIUM CHLORIDE 10 ML SYRINGE IV SCH ×3 (05:16→22:02)
[2020-12-14] MEDS: INSULIN LISPRO 1 UNIT/0.01 ML UNIT SQ SCH ×4 (08:32→22:08)
[2020-12-14] MEDS: SENNOSIDES 1 TABLET PO SCH ×2 (08:33→22:10)
[2020-12-14] MEDS: HEPARIN 5,000 UNIT/ML VIAL SQ SCH ×2 (08:33→21:55)
[2020-12-14 08:39] LABS: Hematocrit 32.4 % (40.1-51.0); Hemoglobin 11.8 g/dL (13.7-17.5); Mean Cell Volume 86.4 fL (80.0-100.0); Mean Corpuscular HGB Conc 36.4 g/dL (31.0-36.0); Mean Platelet Volume 9.8 fL (7.4-10.4); Platelet Count 108 K/mcL (140-440); RBC 3.75 M/mcL (4.63-6.08); WBC 6.1 K/mcL (4.5-11.0)
[2020-12-14 09:00] LABS: ALT/SGPT 48 U/L (<40); AST/SGOT 48 U/L (<40); Albumin 2.8 gm/dL (3.2-5.2); Albumin/Globulin Ratio 0.9 (1.0-2.3); Alkaline Phosphatase 94 U/L (39-117); Bilirubin,Direct 0.4 mg/dL (<0.3); Bilirubin,Total 0.8 mg/dL (0.1-1.0); Blood Urea Nitrogen 35 mg/dL (8-23); Carbon Dioxide 22 mmol/L (22-30); Chloride 102 mmol/L (96-108); Globulin 3.1 gm/dL (2.2-3.7); Glomerular Filtration Rate 44; Glucose 165 mg/dL (70-105); Lactate Dehydrogenase 334 U/L (135-225); Phosphorous 1.9 mg/dL (2.5-4.5); Triglycerides 211 mg/dL (<150); Uric Acid 9.6 mg/dL (2.5-8.0)
[2020-12-14] MEDS ORDERED: TAMSULOSIN 0.4 MG CAPSULE PO SCH (09:00)
[2020-12-14] MEDS ORDERED: ALLOPURINOL 100 MG TABLET PO SCH (09:00)
[2020-12-14] MEDS ORDERED: FOLIC ACID 1 MG TABLET PO SCH (09:00)
[2020-12-14] MEDS ORDERED: OMEPRAZOLE 20 MG CAPSULE PO SCH (09:00)
[2020-12-14] MEDS ORDERED: THIAMINE 100 MG in 0.9 % SODIUM CHLORIDE 50 ML IV SCH (09:00)
[2020-12-14] MEDS ORDERED: GABAPENTIN 300 MG CAPSULE PO SCH (09:00)
[2020-12-14] MEDS ORDERED: LACTATED RINGERS 1,000 ML IV SCH (09:44)
[2020-12-14] MEDS ORDERED: DEXTROSE 50% 50 ML VIAL IV PRN (10:21)
[2020-12-14] MEDS ORDERED: NALOXONE HCL 0.4 MG/ML VIAL IV PRN (10:21)
[2020-12-14] MEDS ORDERED: DEXTROSE 31 GM ORAL.SUSP PO PRN (10:21)
[2020-12-14] MEDS ORDERED: LACTULOSE 20 GM/30 ML ORAL.SOL PO PRN (10:21)
--- NOTE | 2020-12-14 10:28 | EKG ---
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 Electronically Signed On 12-14-2020 10:27:58 PDT by Kenyon Perry /store/M0/[id number]/ecg/[id number]
[2020-12-14 10:33] LABS: Anisocytosis FEW (None Seen); Band Neutrophils % 7 % (0-10); Lymphocytes % 15 % (15-49); Monocytes % (Manual) 9 % (1-12); Platelet Estimate DECREASED (Normal); RBC Morphology ABNORMAL (Normal); Reactive Lymphocytes 6 % (0-2); Segmented Neutrophils % 63 % (38-78)
--- NOTE | 2020-12-14 11:51 | Ultrasound Report ---
History: Asymmetric pitting edema in the right leg FINDINGS: There is normal augmentation and compressibility of the deep veins and saphenous vein in the right leg from the groin through the calf. Doppler shows normal waveform patterns. IMPRESSION: Normal exam, without evidence of deep venous thrombosis Interpreted and Authenticated by: Eusebio Armendariz 12/14/20
--- NOTE | 2020-12-14 16:23 | Internal Med Progress Note ---
SUBJECTIVE Subjective Patient information: Note initiated : 12/14/20 at 4:21 pm Service Date, if different from initiated Date: [] Patient: Cruz Mccormick 65 y/o M admitted on 12/13/20 for alcohol. Chief Complaint: [] Interval history: Mr. Mccormick is a 65 year old male with a history of hypertension, hyperlipidemia, GERD, gout, liver cirrhosis, alcohol use disorder, multiple prior episodes of acute pancreatitis attributed to alcohol who presented to the ED after a several week binge that culminated in abdominal pain characteristic for acute pancreatitis. In the ED the patient had an elevated lipase of 534 gastric pain. The patient also had an acute kidney injury. Patient also had leukocytosis that resolved with IV fluids. Hospital medicine was asked to admit the patient for acute pancreatitis felt to be secondary to alcohol. Review of the patient's prior did not reveal any evidence of cholelithiasis. In the ED, the patient was able to keep down some liquids. He was started on IV fluid and analgesics with morphine IV as needed. The patient does say that he has a history of severe alcohol withdrawal. Prior to the recent events the patient says that he has been sober for years. 12/14: main complaint is lack of sleep overnight, tolerating clear liquids, robust urine output and renal function improving, decreased IV fluid rate, hemoglobin A1c 6.6, CRP 5.5, RLE duplex negative for DVT. Physical exam Head: Atraumatic, normal inspection. Eyes: normal appearance, no scleral icterus. Neck: full ROM Respiratory: no respiratory distress. Cardiovascular: normal rate and rhythm, S1, S2. GI/Abdominal: distended, decrease bowel sounds, diffuse tenderness, no guarding Extremities: right lower extremity pitting edema, full range of motion, nontender. Neurological: CN II-XII intact, intact motor, intact sensation. Psychiatric: normal mood. Skin: warm, normal color Constitutional Vitals: Vital Signs Temp Pulse Resp BP Pulse Ox 97.7 F 88 16 136/87 98 12/14/20 15:58 12/14/20 15:58 12/14/20 15:58 12/14/20 15:58 12/14/20 15:58 Period Temp Pulse Resp BP Sys/Haque Pulse Ox Last 24 Hr 97.2 F-98.3 F 84-103 11-18 134-157/73-93 97-100 Intake and Output 12/14/20 12/14/20 12/14/20 05:59 13:59 21:59 Intake Total 1999 1188 800 Output Total 3100 1600 Balance -1100 -412 800 Weight 74.525 kg 74.525 kg Patient Weight 12/15/20 05:59 Weight 74.525 kg Intake & Output: Intake & Output 12/14/20 12/14/20 12/14/20 05:59 13:59 21:59 Intake Total 1999 1188 800 Output Total 3100 1600 Balance -1100 -412 800 Weight 74.525 kg 74.525 kg Intake: IV 1999 1188 Lactated Ringers 1,000 ml @ 200 2000 1137 mls/hr IV .Q5H JG Rx#: [id number] Vitamin B1 100 mg In Sodium 51 Chloride 0.9% 50 ml @ 50 mls/hr IV DAILY JG Rx#:[id number] Oral 0 800 Output: Urine Catheter Amount 2875 1600 Void Amount 225 Other: Urine Appearance Clear Clear Uretheral (Smith) Clear Clear Urine Color Bright Yellow Pale [place] Uretheral (Smith) Dark Yellow [place] Urine Odor Strong Normal Uretheral (Smith) Strong OBJ DATA Labs CBC & Chem 7: 12/14/20 05:08 12/14/20 05:08 Labs: Abnormal Lab Results 12/14/20 12/14/20 12/13/20 05:08 05:08 23:00 WBC RBC 3.75 L Hgb 11.8 L Hct 32.4 L MCHC 36.4 H Plt Count 108 L Neut % (Auto) Lymph % (Auto) Lymph # (Auto) [place] # (Auto) Absolute Neutrophils Reactive Lymphocytes 6 H Platelet Estimate Decreased A RBC Morphology Abnormal A Anisocytosis Few A Sodium Potassium Chloride Carbon Dioxide 20 L Anion Gap BUN 35 H 50 H Creatinine 1.6 H 2.4 H Glucose 165 H 182 H Hemoglobin A1c 6.6 H Uric Acid 9.6 H 11.2 H Calcium 8.0 L 7.9 L Phosphorus 1.9 L 1.6 L Total Bilirubin Direct Bilirubin 0.4 H 0.5 H GGT 303 H 326 H AST 48 H 53 H ALT 48 H 55 H Lactate Dehydrogenase 334 H 352 H Total Creatine Kinase C-Reactive Protein 5.50 H Albumin 2.8 L 3.0 L Albumin/Globulin Ratio 0.9 L 0.9 L Triglycerides 211 H 188 H Lipase 12/13/20 12/13/20 12/12/20 00:15 00:15 15:47 WBC RBC 3.95 L Hgb 12.5 L Hct 33.6 L MCHC 37.2 H Plt Count 126 L Neut % (Auto) Lymph % (Auto) Lymph # (Auto) [place] # (Auto) Absolute Neutrophils Reactive Lymphocytes Platelet Estimate Decreased A RBC Morphology Anisocytosis Sodium 132 L Potassium 5.6 H Chloride Carbon Dioxide 21 L 19 L Anion Gap BUN 61 H 58 H Creatinine 2.0 H 2.0 H Glucose 253 H 238 H Hemoglobin A1c Uric Acid Calcium 7.9 L 8.0 L Phosphorus Total Bilirubin 1.1 H Direct Bilirubin GGT AST 69 H 84 H ALT 69 H 71 H Lactate Dehydrogenase Total Creatine Kinase 485 H C-Reactive Protein Albumin 3.0 L 2.9 L Albumin/Globulin Ratio 0.9 L 0.9 L Triglycerides Lipase 12/12/20 12/12/20 11:34 11:34 WBC 14.5 H RBC 4.28 L Hgb 13.3 L Hct 37.0 L MCHC Plt Count Neut % (Auto) 81.0 H Lymph % (Auto) 8.7 L Lymph # (Auto) 1.27 L [place] # (Auto) 1.29 H Absolute Neutrophils 11.77 H Reactive Lymphocytes Platelet Estimate RBC Morphology Anisocytosis Sodium 132 L Potassium 5.5 H Chloride 94 L Carbon Dioxide 17 L Anion Gap 21.0 H BUN 64 H Creatinine 1.7 H Glucose 261 H Hemoglobin A1c Uric Acid Calcium Phosphorus Total Bilirubin 1.1 H Direct Bilirubin GGT AST 106 H ALT 86 H Lactate Dehydrogenase Total Creatine Kinase 909 H C-Reactive Protein Albumin Albumin/Globulin Ratio Triglycerides Lipase 534 H Meds: Medications Allopurinol (Allopurinol 100 Mg Tablet) 100 mg PO QDAY [facility] Dextrose (Dextrose 50% 50 Ml Vial) 0 ml IV UD PRN PRN Reason: Hypoglycemia Diagnostic Test (Pha) (Accu-Chek 1 Each Strip) 1 each FS ACHS [facility] Last Admin: 12/14/20 13:29 Dose: 1 each Documented by: Folic Acid (Folic Acid 1 Mg Tablet) 1 mg PO DAILY JG Gabapentin (Gabapentin 300 Mg Capsule) 300 mg PO QDAY JG Glucose (Dextrose 31 Gm Oral.Susp) 15 gm PO PRN PRN PRN Reason: Hypoglycemia Heparin Sodium (Porcine) (Heparin 5,000 Unit/Ml Vial) 5,000 unit SQ Q12 JG Hydromorphone HCl (Hydromorphone 0.5 Mg/0.5 Ml Syringe) 0.5 mg IV Q1HP PRN; Protocol PRN Reason: Per Pain Protocol Lactated Ringer's (Lactated Ringers) 1,000 mls @ 125 mls/hr IV .Q8H [facility] Last Admin: 12/14/20 10:23 Dose: Not Given Documented by: Thiamine HCl 100 mg/ Sodium (Chloride) 51 mls @ 50 mls/hr IV DAILY [facility] Insulin Human Lispro (Insulin Lispro 1 Unit/0.01 Ml Unit) 0 unit SQ ACHS [facility]; Protocol Last Admin: 12/14/20 13:28 Dose: 2 unit Documented by: Lactulose (Lactulose 20 Gm/30 Ml Oral.Tnoya) 10 gm PO DAILYP PRN PRN Reason: Constipation Naloxone HCl (Naloxone Hcl 0.4 Mg/Ml Vial) 0.4 mg IV Q10M PRN PRN Reason: Opiate Reversal Omeprazole (Omeprazole 20 Mg Capsule) 20 mg PO QDAY [facility] Ondansetron HCl (Ondansetron 4 Mg/2 Ml Vial) 4 mg IV Q4HP PRN; Protocol PRN Reason: Nausea And Vomiting Senna (Sennosides 1 Tablet) 2 tab PO BID [facility] Sodium Chloride (0.9 % Sodium Chloride 10 Ml Syringe) 10 ml IV Q8 [facility] Last Admin: 12/14/20 14:05 Dose: 10 ml Documented by: Tamsulosin HCl (Tamsulosin 0.4 Mg Capsule) 0.4 mg PO QDAY [facility] A/P Narrative A/P Narrative: Assessment: 65 year old male with a history of hypertension, hyperlipidemia, GERD, gout, liver cirrhosis, alcohol use disorder, multiple prior episodes of acute pancreatitis attributed alcohol now admitted for acute pancreatitis likely secondary to alcohol. #Acute pancreatitis likely due to alcohol #Acute kidney injury #Elevated LFTs #Hyperglycemia, probable diabetes mellitus #Thrombocytopenia #Hypertension #Hyperlipidemia #Urinary retention-BPH #Alcohol use disorder Plan -IV fluid, analgesic prn. -Monitor renal function and urine output. -Hold home Losartan, continue other essential home meds. -Montor LFTs. -SSI-low. -Monitor stool for evidence of GI bleed. -CIWA scoring, vitamin supplementation. -Full liquid diet. 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
[2020-12-14] MEDS: NEUTRA PHOS 1 PACKET PO SCH (21:54)
[2020-12-15] MEDS: LACTATED RINGERS 1,000 ML IV SCH ×7 (03:42→23:56)
[2020-12-15] MEDS: HYDROmorphone 0.5 MG/0.5 ML SYRINGE IV PRN ×5 (03:48→23:56)
[2020-12-15] MEDS: 0.9 % SODIUM CHLORIDE 10 ML SYRINGE IV SCH ×3 (04:23→21:11)
[2020-12-15] MEDS: INSULIN LISPRO 1 UNIT/0.01 ML UNIT SQ SCH ×4 (07:29→20:08)
[2020-12-15] MEDS: OMEPRAZOLE 20 MG CAPSULE PO SCH (07:29)
[2020-12-15] MEDS: ONDANSETRON 4 MG/2 ML VIAL IV PRN ×2 (08:02→20:02)
[2020-12-15 08:09] LABS: ALT/SGPT 41 U/L (<40); AST/SGOT 48 U/L (<40); Albumin 2.6 gm/dL (3.2-5.2); Albumin/Globulin Ratio 0.8 (1.0-2.3); Alkaline Phosphatase 84 U/L (39-117); Bilirubin,Direct 0.3 mg/dL (<0.3); Bilirubin,Total 0.7 mg/dL (0.1-1.0); Blood Urea Nitrogen 11 mg/dL (8-23); Calcium 8.2 mg/dL (8.6-10.4); Carbon Dioxide 24 mmol/L (22-30); Chloride 97 mmol/L (96-108); Globulin 3.4 gm/dL (2.2-3.7); Glomerular Filtration Rate 77; Glucose 148 mg/dL (70-105); Lactate Dehydrogenase 337 U/L (135-225); Phosphorous 2.6 mg/dL (2.5-4.5); Triglycerides 113 mg/dL (<150); Uric Acid 6.3 mg/dL (2.5-8.0)
[2020-12-15] MEDS ORDERED: MAGNESIUM SULFATE 2 GM/50 ML BAG IV ONE (09:48)
[2020-12-15] MEDS ORDERED: FLU VACC QS2021-22(6MOS UP)/PF 60 MCG/0.5 ML SYRINGE IM ONE (10:00)
[2020-12-15] MEDS: NEUTRA PHOS 1 PACKET PO SCH (11:25)
[2020-12-15] MEDS: HEPARIN 5,000 UNIT/ML VIAL SQ SCH ×2 (11:25→20:02)
[2020-12-15] MEDS: ALLOPURINOL 100 MG TABLET PO SCH (11:25)
[2020-12-15] MEDS: TAMSULOSIN 0.4 MG CAPSULE PO SCH (11:26)
[2020-12-15] MEDS: FOLIC ACID 1 MG TABLET PO SCH (11:26)
[2020-12-15] MEDS: SENNOSIDES 1 TABLET PO SCH ×2 (11:26→21:11)
[2020-12-15] MEDS: GABAPENTIN 300 MG CAPSULE PO SCH (11:27)
[2020-12-15] MEDS: THIAMINE 100 MG in 0.9 % SODIUM CHLORIDE 50 ML IV SCH (11:49)
[2020-12-15] MEDS ORDERED: ACETAMINOPHEN 500 MG TABLET PO PRN (14:12)
[2020-12-15] MEDS ORDERED: oxyCODONE/APAP 5/325MG TABLET PO PRN (14:12)
--- NOTE | 2020-12-15 14:12 | Internal Med Progress Note ---
SUBJECTIVE Subjective Patient information: Note initiated : 12/15/20 at 2:10 pm Service Date, if different from initiated Date: [] Patient: Cruz Mccormick 65 y/o M admitted on 12/13/20 for alcohol. Chief Complaint: [] Interval history: Mr. Mccormick is a 65 year old male with a history of hypertension, hyperlipidemia, GERD, gout, liver cirrhosis, alcohol use disorder, multiple prior episodes of acute pancreatitis attributed to alcohol who presented to the ED after a several week binge that culminated in abdominal pain characteristic for acute pancreatitis. In the ED the patient had an elevated lipase of 534 gastric pain. The patient also had an acute kidney injury. Patient also had leukocytosis that resolved with IV fluids. Hospital medicine was asked to admit the patient for acute pancreatitis felt to be secondary to alcohol. Review of the patient's prior did not reveal any evidence of cholelithiasis. In the ED, the patient was able to keep down some liquids. He was started on IV fluid and analgesics with morphine IV as needed. The patient does say that he has a history of severe alcohol withdrawal. Prior to the recent events the patient says that he has been sober for years. 12/14: main complaint is lack of sleep overnight, tolerating clear liquids, robust urine output and renal function improving, decreased IV fluid rate, hemoglobin A1c 6.6, CRP 5.5, RLE duplex negative for DVT. 12/15: had a fever of 100.7 overnight, acute kidney injury resolved, feels nauseous, continuing IV fluid and analgesics, on full liquid diet, added oral prn analgesics. Physical exam Head: Atraumatic, normal inspection. Eyes: normal appearance, no scleral icterus. Neck: full ROM Respiratory: no respiratory distress. Cardiovascular: normal rate and rhythm, S1, S2. GI/Abdominal: distended, decrease bowel sounds, diffuse tenderness, no guarding Extremities: full range of motion, nontender. Neurological: CN II-XII intact, intact motor, intact sensation. Psychiatric: normal mood. Skin: warm, normal color Constitutional Vitals: Vital Signs Temp Pulse Resp BP Pulse Ox 98.9 F 91 H 18 134/75 97 12/15/20 11:37 12/15/20 11:37 12/15/20 11:37 12/15/20 11:37 12/15/20 11:37 Period Temp Pulse Resp BP Sys/Haque Pulse Ox Last 24 Hr 97.7 F-100.7 F 88-111 16-20 114-144/71-87 93-98 Intake and Output 12/15/20 12/15/20 12/15/20 05:59 13:59 21:59 Intake Total 500 51 Output Total 1999 Balance 1500 51 Weight 74.298 kg Intake & Output: Intake & Output 12/15/20 12/15/20 12/15/20 05:59 13:59 21:59 Intake Total 500 51 Output Total 1999 Balance 1500 51 Weight 74.298 kg Intake: IV 51 Vitamin B1 100 mg In Sodium 51 Chloride 0.9% 50 ml @ 50 mls/hr IV DAILY JG Rx#:[id number] Oral 500 Output: Urine Catheter Amount 1999 Other: Urine Appearance Clear Urine Color Blood Tinged Stool Size Moderate Stool Color Brown Stool Consistency Liquid # Bowel Movements 2 OBJ DATA Labs CBC & Chem 7: 12/14/20 05:08 12/15/20 05:29 Labs: Abnormal Lab Results 12/15/20 12/14/20 12/14/20 05:29 05:08 05:08 RBC 3.75 L Hgb 11.8 L Hct 32.4 L MCHC 36.4 H Plt Count 108 L Reactive Lymphocytes 6 H Platelet Estimate Decreased A RBC Morphology Abnormal A Anisocytosis Few A Sodium Potassium Carbon Dioxide BUN 35 H Creatinine 1.6 H Glucose 148 H 165 H Hemoglobin A1c Uric Acid 9.6 H Calcium 8.2 L 8.0 L Phosphorus 1.9 L Magnesium 1.5 L Total Bilirubin Direct Bilirubin 0.3 H 0.4 H GGT 296 H 303 H AST 48 H 48 H ALT 41 H 48 H Lactate Dehydrogenase 337 H 334 H Total Creatine Kinase C-Reactive Protein Albumin 2.6 L 2.8 L Albumin/Globulin Ratio 0.8 L 0.9 L Triglycerides 211 H 12/13/20 12/13/20 12/13/20 23:00 00:15 00:15 RBC 3.95 L Hgb 12.5 L Hct 33.6 L MCHC 37.2 H Plt Count 126 L Reactive Lymphocytes Platelet Estimate Decreased A RBC Morphology Anisocytosis Sodium 132 L Potassium Carbon Dioxide 20 L 21 L BUN 50 H 61 H Creatinine 2.4 H 2.0 H Glucose 182 H 253 H Hemoglobin A1c 6.6 H Uric Acid 11.2 H Calcium 7.9 L 7.9 L Phosphorus 1.6 L Magnesium Total Bilirubin 1.1 H Direct Bilirubin 0.5 H GGT 326 H AST 53 H 69 H ALT 55 H 69 H Lactate Dehydrogenase 352 H Total Creatine Kinase 485 H C-Reactive Protein 5.50 H Albumin 3.0 L 3.0 L Albumin/Globulin Ratio 0.9 L 0.9 L Triglycerides 188 H 12/12/20 15:47 RBC Hgb Hct MCHC Plt Count Reactive Lymphocytes Platelet Estimate RBC Morphology Anisocytosis Sodium Potassium 5.6 H Carbon Dioxide 19 L BUN 58 H Creatinine 2.0 H Glucose 238 H Hemoglobin A1c Uric Acid Calcium 8.0 L Phosphorus Magnesium Total Bilirubin Direct Bilirubin GGT AST 84 H ALT 71 H Lactate Dehydrogenase Total Creatine Kinase C-Reactive Protein Albumin 2.9 L Albumin/Globulin Ratio 0.9 L Triglycerides Meds: Medications Allopurinol (Allopurinol 100 Mg Tablet) 100 mg PO QDAY [facility] [place] Last Admin: 12/15/20 11:25 Dose: 100 mg Documented by: Dextrose (Dextrose 50% 50 Ml Vial) 0 ml IV UD PRN PRN Reason: Hypoglycemia Diagnostic Test (Pha) (Accu-Chek 1 Each Strip) 1 each FS ACHS [facility] [place] Last Admin: 12/15/20 13:01 Dose: 1 each Documented by: Folic Acid (Folic Acid 1 Mg Tablet) 1 mg PO DAILY [facility] [place] Last Admin: 12/15/20 11:26 Dose: 1 mg Documented by: Gabapentin (Gabapentin 300 Mg Capsule) 300 mg PO QDAY [facility] [place] Last Admin: 12/15/20 11:27 Dose: 300 mg Documented by: Glucose (Dextrose 31 Gm Oral.Susp) 15 gm PO PRN PRN PRN Reason: Hypoglycemia Heparin Sodium (Porcine) (Heparin 5,000 Unit/Ml Vial) 5,000 unit SQ Q12 [facility] [place] Last Admin: 12/15/20 11:25 Dose: 5,000 unit Documented by: Hydromorphone HCl (Hydromorphone 0.5 Mg/0.5 Ml Syringe) 0.5 mg IV Q1HP PRN; Protocol PRN Reason: Per Pain Protocol Last Admin: 12/15/20 11:49 Dose: 0.5 mg Documented by: Lactated Ringer's (Lactated Ringers) 1,000 mls @ 125 mls/hr IV .Q8H [facility] [place] Last Admin: 12/15/20 10:21 Dose: Not Given Documented by: Thiamine HCl 100 mg/ Sodium (Chloride) 51 mls @ 50 mls/hr IV DAILY [facility] [place] Last Infusion: 12/15/20 12:51 Dose: Infused Documented by: Insulin Human Lispro (Insulin Lispro 1 Unit/0.01 Ml Unit) 0 unit SQ ACHS [facility] [place]; Protocol Last Admin: 12/15/20 13:00 Dose: 1 unit Documented by: Lactulose (Lactulose 20 Gm/30 Ml Oral.Tonya) 10 gm PO DAILYP PRN PRN Reason: Constipation Naloxone HCl (Naloxone Hcl 0.4 Mg/Ml Vial) 0.4 mg IV Q10M PRN PRN Reason: Opiate Reversal Omeprazole (Omeprazole 20 Mg Capsule) 20 mg PO QDAY [facility] [place] Last Admin: 12/15/20 07:29 Dose: 20 mg Documented by: Ondansetron HCl (Ondansetron 4 Mg/2 Ml Vial) 4 mg IV Q4HP PRN; Protocol PRN Reason: Nausea And Vomiting Last Admin: 12/15/20 08:02 Dose: 4 mg Documented by: Senna (Sennosides 1 Tablet) 2 tab PO BID [facility] [place] Last Admin: 12/15/20 11:26 Dose: 2 tab Documented by: Sodium Chloride (0.9 % Sodium Chloride 10 Ml Syringe) 10 ml IV Q8 [facility] [place] Last Admin: 12/15/20 13:33 Dose: Not Given Documented by: Tamsulosin HCl (Tamsulosin 0.4 Mg Capsule) 0.4 mg PO QDAY [facility] [place] Last Admin: 12/15/20 11:26 Dose: 0.4 mg Documented by: A/P Narrative A/P Narrative: Assessment: 65 year old male with a history of hypertension, hyperlipidemia, GERD, gout, liver cirrhosis, alcohol use disorder, multiple shruthi or episodes of acute pancreatitis attributed alcohol now admitted for acute pancreatitis likely secondary to alcohol. #Acute pancreatitis likely due to alcohol #Resolved acute kidney injury #Elevated LFTs-improving #Probable diabetes mellitus #Thrombocytopenia #Hypertension #Hyperlipidemia #Urinary retention-BPH #Alcohol use disorder Plan -IV fluid, analgesic prn. -Monitor renal function and urine output. -Hold home Losartan, continue other essential home meds. -Montor LFTs. -Lantus and SSI-low. -Monitor stool for evidence of GI bleed. -CIWA scoring, vitamin supplementation. -Full liquid diet. -Consider CT abdomen/pelvis if not improving by day 3. 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
[2020-12-15] MEDS: oxyCODONE HCL 5 MG TABLET PO PRN ×2 (16:53→20:02)
[2020-12-15] MEDS: INSULIN GLARGINE, HUMAN 1 UNIT/0.01 ML SQ SCH (20:11)
[2020-12-16] MEDS: ONDANSETRON 4 MG/2 ML VIAL IV PRN ×4 (00:10→16:29)
[2020-12-16] MEDS: LACTATED RINGERS 1,000 ML IV SCH (02:41)
[2020-12-16] MEDS: HYDROmorphone 0.5 MG/0.5 ML SYRINGE IV PRN ×3 (03:33→16:30)
[2020-12-16] MEDS: 0.9 % SODIUM CHLORIDE 10 ML SYRINGE IV SCH ×3 (05:44→20:50)
[2020-12-16 06:50] LABS: Basophils # (Auto) 0.07 K/mcL (0.00-0.30); Basophils % (Auto) 1.1 % (0.0-2.0); Eosinophils # (Auto) 0.07 K/mcL (0.00-0.70); Eosinophils % (Auto) 1.1 % (0.0-7.0); Hematocrit 36.4 % (40.1-51.0); Hemoglobin 13.4 g/dL (13.7-17.5); Lymphocytes # (Auto) 1.48 K/mcL (1.50-4.80); Lymphocytes % (Auto) 22.2 % (15.5-49.0); Mean Cell Volume 85.4 fL (80.0-100.0); Mean Corpuscular HGB Conc 36.8 g/dL (31.0-36.0); Mean Platelet Volume 9.5 fL (7.4-10.4); Monocytes # (Auto) 0.96 K/mcL (0.10-0.90); Monocytes % (Auto) 14.4 % (1.0-12.0); Neutrophils % (Auto) 61.2 % (38.0-78.0); Platelet Count 132 K/mcL (140-440); RBC 4.26 M/mcL (4.63-6.08); Red Cell Distribution Width 13.2 % (11.5-14.5); WBC 6.7 K/mcL (4.5-11.0)
[2020-12-16 07:04] LABS: ALT/SGPT 43 U/L (<40); AST/SGOT 53 U/L (<40); Albumin 2.8 gm/dL (3.2-5.2); Albumin/Globulin Ratio 0.8 (1.0-2.3); Alkaline Phosphatase 96 U/L (39-117); Bilirubin,Direct 0.4 mg/dL (<0.3); Bilirubin,Total 0.8 mg/dL (0.1-1.0); Blood Urea Nitrogen 8 mg/dL (8-23); Calcium 8.2 mg/dL (8.6-10.4); Carbon Dioxide 23 mmol/L (22-30); Chloride 93 mmol/L (96-108); Globulin 3.6 gm/dL (2.2-3.7); Glomerular Filtration Rate 77; Glucose 119 mg/dL (70-105); Lactate Dehydrogenase 340 U/L (135-225); Phosphorous 2.5 mg/dL (2.5-4.5); Triglycerides 142 mg/dL (<150); Uric Acid 5.1 mg/dL (2.5-8.0)
[2020-12-16] MEDS: THIAMINE 100 MG in 0.9 % SODIUM CHLORIDE 50 ML IV SCH (08:07)
[2020-12-16] MEDS: LOSARTAN 25 MG TABLET PO SCH (08:07)
[2020-12-16] MEDS: FOLIC ACID 1 MG TABLET PO SCH (08:07)
[2020-12-16] MEDS: OMEPRAZOLE 20 MG CAPSULE PO SCH (08:07)
[2020-12-16] MEDS: HEPARIN 5,000 UNIT/ML VIAL SQ SCH ×2 (08:07→21:09)
[2020-12-16] MEDS: ALLOPURINOL 100 MG TABLET PO SCH (08:08)
[2020-12-16] MEDS: SENNOSIDES 1 TABLET PO SCH ×2 (08:08→21:09)
[2020-12-16] MEDS: GABAPENTIN 300 MG CAPSULE PO SCH (08:08)
[2020-12-16] MEDS: SIMVASTATIN 10 MG TABLET PO SCH (08:08)
[2020-12-16] MEDS: FINASTERIDE 5 MG TABLET PO SCH (08:08)
[2020-12-16] MEDS: TAMSULOSIN 0.4 MG CAPSULE PO SCH (08:08)
[2020-12-16] MEDS: INSULIN LISPRO 1 UNIT/0.01 ML UNIT SQ SCH ×4 (08:13→20:50)
[2020-12-16] MEDS ORDERED: PRAVASTATIN 20 MG TABLET PO SCH (09:00)
[2020-12-16] MEDS: oxyCODONE HCL 5 MG TABLET PO PRN ×2 (12:39→18:30)
--- NOTE | 2020-12-16 16:15 | Internal Med Progress Note ---
SUBJECTIVE Subjective Patient information: Note initiated : 12/16/20 at 4:14 pm Service Date, if different from initiated Date: [] Patient: Cruz Mccormick 65 y/o M admitted on 12/13/20 for alcohol. Chief Complaint: [] Interval history: Mr. Mccormick is a 65 year old male with a history of hypertension, hyperlipidemia, GERD, gout, liver cirrhosis, alcohol use disorder, multiple prior episodes of acute pancreatitis attributed to alcohol who presented to the ED after a several week binge that culminated in abdominal pain characteristic for acute pancreatitis. In the ED the patient had an elevated lipase of 534 gastric pain. The patient also had an acute kidney injury. Patient also had leukocytosis that resolved with IV fluids. Hospital medicine was asked to admit the patient for acute pancreatitis felt to be secondary to alcohol. Review of the patient's prior did not reveal any evidence of cholelithiasis. In the ED, the patient was able to keep down some liquids. He was started on IV fluid and analgesics with morphine IV as needed. The patient does say that he has a history of severe alcohol withdrawal. Prior to the recent events the patient says that he has been sober for years. 12/14: main complaint is lack of sleep overnight, tolerating clear liquids, robust urine output and renal function improving, decreased IV fluid rate, hemoglobin A1c 6.6, CRP 5.5, RLE duplex negative for DVT. 12/15: had a fever of 100.7 overnight, acute kidney injury resolved, feels nauseous, continuing IV fluid and analgesics, on full liquid diet, added oral prn analgesics. 12/16: no elevated temperature or fevers overnight, advanced diet to regular low fat, discontinued IV fluid, resumed home losartan for hypertension, removed smith catheter. Physical exam Head: Atraumatic, normal inspection. Eyes: normal appearance, no scleral icterus. Neck: full ROM Respiratory: no respiratory distress. Cardiovascular: normal rate and rhythm, S1, S2. GI/Abdominal: distended, decrease bowel sounds, diffuse tenderness, no guarding Extremities: full range of motion, nontender. Neurological: CN II-XII intact, intact motor, intact sensation. Psychiatric: normal mood. Skin: warm, normal color Constitutional Vitals: Vital Signs Temp Pulse Resp BP Pulse Ox 98.9 F 93 H 20 132/77 95 12/16/20 12:00 12/16/20 12:00 12/16/20 12:00 12/16/20 12:00 12/16/20 12:00 Period Temp Pulse Resp BP Sys/Haque Pulse Ox Last 24 Hr 98.2 F-98.9 F 92-110 16-20 132-164/77-94 95-96 Intake and Output 12/16/20 12/16/20 12/16/20 05:59 13:59 21:59 Intake Total 1398 1051 Output Total 1000 Balance 398 1051 Intake & Output: Intake & Output 12/16/20 12/16/20 12/16/20 05:59 13:59 21:59 Intake Total 1398 1051 Output Total 1000 Balance 398 1051 Intake: IV 998 1051 Lactated Ringers 1,000 ml @ 178 132 7544 mls/hr IV .Q8H [facility] Rx#: [id number] Vitamin B1 100 mg In Sodium 51 Chloride 0.9% 50 ml @ 50 mls/hr IV DAILY [facility] Rx#:[id number] Oral 400 Output: Urine Catheter Amount 1000 Other: Urine Appearance Clear Uretheral (Smith) Clear Urine Color Blood Tinged Uretheral (Smith) Bright Yellow Blood Tinged Stool Size Small Stool Color Brown Stool Consistency Liquid # Bowel Movements 3 OBJ DATA Labs CBC & Chem 7: 12/16/20 05:27 12/16/20 05:28 Labs: Abnormal Lab Results 12/16/20 12/16/20 12/15/20 05:28 05:27 05:29 RBC 4.26 L Hgb 13.4 L Hct 36.4 L MCHC 36.8 H Plt Count 132 L [place] % (Auto) 14.4 H Lymph # (Auto) 1.48 L [place] # (Auto) 0.96 H Reactive Lymphocytes Platelet Estimate RBC Morphology Anisocytosis Sodium 130 L Chloride 93 L Carbon Dioxide BUN Creatinine Glucose 119 H 148 H Hemoglobin A1c Uric Acid Calcium 8.2 L 8.2 L Phosphorus Magnesium 1.5 L Direct Bilirubin 0.4 H 0.3 H GGT 281 H 296 H AST 53 H 48 H ALT 43 H 41 H Lactate Dehydrogenase 340 H 337 H C-Reactive Protein Albumin 2.8 L 2.6 L Albumin/Globulin Ratio 0.8 L 0.8 L Triglycerides 12/14/20 12/14/20 12/13/20 05:08 05:08 23:00 RBC 3.75 L Hgb 11.8 L Hct 32.4 L MCHC 36.4 H Plt Count 108 L [place] % (Auto) Lymph # (Auto) [place] # (Auto) Reactive Lymphocytes 6 H Platelet Estimate Decreased A RBC Morphology Abnormal A Anisocytosis Few A Sodium Chloride Carbon Dioxide 20 L BUN 35 H 50 H Creatinine 1.6 H 2.4 H Glucose 165 H 182 H Hemoglobin A1c 6.6 H Uric Acid 9.6 H 11.2 H Calcium 8.0 L 7.9 L Phosphorus 1.9 L 1.6 L Magnesium Direct Bilirubin 0.4 H 0.5 H GGT 303 H 326 H AST 48 H 53 H ALT 48 H 55 H Lactate Dehydrogenase 334 H 352 H C-Reactive Protein 5.50 H Albumin 2.8 L 3.0 L Albumin/Globulin Ratio 0.9 L 0.9 L Triglycerides 211 H 188 H Meds: Medications Acetaminophen (Acetaminophen 500 Mg Tablet) 500 mg PO Q4HP PRN; Protocol PRN Reason: Per Pain Protocol Allopurinol (Allopurinol 100 Mg Tablet) 100 mg PO QDAY [facility] Last Admin: 12/16/20 08:08 Dose: 100 mg Documented by: Dextrose (Dextrose 50% 50 Ml Vial) 0 ml IV UD PRN PRN Reason: Hypoglycemia Diagnostic Test (Pha) (Accu-Chek 1 Each Strip) 1 each FS ACHS [facility] Last Admin: 12/16/20 12:17 Dose: 1 each Documented by: Finasteride (Finasteride 5 Mg Tablet) 5 mg PO QDAY [facility] Last Admin: 12/16/20 08:08 Dose: 5 mg Documented by: Folic Acid (Folic Acid 1 Mg Tablet) 1 mg PO DAILY [facility] Last Admin: 12/16/20 08:07 Dose: 1 mg Documented by: Gabapentin (Gabapentin 300 Mg Capsule) 300 mg PO QDAY [facility] Last Admin: 12/16/20 08:08 Dose: 300 mg Documented by: Glucose (Dextrose 31 Gm Oral.Susp) 15 gm PO PRN PRN PRN Reason: Hypoglycemia Heparin Sodium (Porcine) (Heparin 5,000 Unit/Ml Vial) 5,000 unit SQ Q12 [facility] Last Admin: 12/16/20 08:07 Dose: 5,000 unit Documented by: Hydromorphone HCl (Hydromorphone 0.5 Mg/0.5 Ml Syringe) 0.5 mg IV Q1HP PRN; Protocol PRN Reason: Per Pain Protocol Last Admin: 12/16/20 06:47 Dose: 0.5 mg Documented by: Thiamine HCl 100 mg/ Sodium (Chloride) 51 mls @ 50 mls/hr IV DAILY [facility] Last Infusion: 12/16/20 10:10 Dose: Infused Documented by: Insulin Glargine (Insulin Glargine, Human 1 Unit/0.01 Ml) 5 unit SQ HS [facility] Last Admin: 12/15/20 20:11 Dose: 5 units Documented by: Insulin Human Lispro (Insulin Lispro 1 Unit/0.01 Ml Unit) 0 unit SQ ACHS [facility]; Protocol Last Admin: 12/16/20 12:17 Dose: Not Given Documented by: Lactulose (Lactulose 20 Gm/30 Ml Oral.Tonya) 10 gm PO DAILYP PRN PRN Reason: Constipation Losartan Potassium (Losartan 25 Mg Tablet) 25 mg PO QDAY [facility] Last Admin: 12/16/20 08:07 Dose: 25 mg Documented by: Naloxone HCl (Naloxone Hcl 0.4 Mg/Ml Vial) 0.4 mg IV Q10M PRN PRN Reason: Opiate Reversal Omeprazole (Omeprazole 20 Mg Capsule) 20 mg PO QDAY [facility] Last Admin: 12/16/20 08:07 Dose: 20 mg Documented by: Ondansetron HCl (Ondansetron 4 Mg/2 Ml Vial) 4 mg IV Q4HP PRN; Protocol PRN Reason: Nausea And Vomiting Last Admin: 12/16/20 12:38 Dose: 4 mg Documented by: Oxycodone HCl (Oxycodone Hcl 5 Mg Tablet) 5 mg PO Q4HP PRN; Protocol PRN Reason: Per Pain Protocol Last Admin: 12/16/20 12:39 Dose: 5 mg Documented by: Lipase-Protease- Amylase [Creon] 36, 000-114,000- 180,000 Unit Capsule, Delayed Release 3 dose PO AC [facility] Senna (Sennosides 1 Tablet) 2 tab PO BID [facility] Last Admin: 12/16/20 08:08 Dose: Not Given Documented by: Simvastatin (Simvastatin 10 Mg Tablet) 10 mg PO DAILY [facility] Last Admin: 12/16/20 08:08 Dose: 10 mg Documented by: Sodium Chloride (0.9 % Sodium Chloride 10 Ml Syringe) 10 ml IV Q8 [facility] Last Admin: 10/18/21 12:17 Dose: 10 ml Documented by: Tamsulosin HCl (Tamsulosin 0.4 Mg Capsule) 0.4 mg PO QDAY [facility] Last Admin: 12/16/20 08:08 Dose: 0.4 mg Documented by: A/P Narrative A/P Narrative: Assessment: 65 year old male with a history of hypertension, hyperlipidemia, GERD, gout, liver cirrhosis, alcohol use disorder, multiple prior episodes of acute pancreatitis attributed alcohol now admitted for acute pancreatitis likely secondary to alcohol. #Acute pancreatitis likely due to alcohol #Resolved acute kidney injury #Elevated LFTs-improving #Probable diabetes mellitus #Thrombocytopenia #Hypertension #Hyperlipidemia #Urinary retention-BPH #Alcohol use disorder Plan -Discontinue IV fluid, -Resume home Losartan. -Monitor LFTs. -Lantus and SSI-low. -CIWA scoring, vitamin supplementation. -Low fat regular diet. -DVT ppx: heparin -Code status: Full -Disposition: home when stable Time Spent With Patient Time: Total time spent is greater than 50% in coordination of care (as documented) at patient's floor/unit and/or counseling patient: QUALITY VTE Deep Vein Thrombosis/Pulmonary Embolism Present on Admission: No
[2020-12-16] MEDS: LIPASE PROTEASE AMYLASE PO SCH (17:10)
[2020-12-16] MEDS: INSULIN GLARGINE, HUMAN 1 UNIT/0.01 ML SQ SCH (21:09)
[2020-12-17] MEDS: ONDANSETRON 4 MG/2 ML VIAL IV PRN ×3 (01:04→10:47)
[2020-12-17] MEDS: HYDROmorphone 0.5 MG/0.5 ML SYRINGE IV PRN (01:05)
[2020-12-17] MEDS: 0.9 % SODIUM CHLORIDE 10 ML SYRINGE IV SCH ×3 (05:20→21:31)
[2020-12-17] MEDS: LIPASE PROTEASE AMYLASE PO SCH ×3 (06:59→16:45)
[2020-12-17 07:01] LABS: Basophils # (Auto) 0.04 K/mcL (0.00-0.30); Basophils % (Auto) 0.6 % (0.0-2.0); Eosinophils # (Auto) 0.08 K/mcL (0.00-0.70); Eosinophils % (Auto) 1.1 % (0.0-7.0); Hematocrit 34.6 % (40.1-51.0); Hemoglobin 12.7 g/dL (13.7-17.5); Lymphocytes % (Auto) 19.3 % (15.5-49.0); Mean Cell Volume 85.9 fL (80.0-100.0); Mean Corpuscular HGB Conc 36.7 g/dL (31.0-36.0); Mean Platelet Volume 9.7 fL (7.4-10.4); Monocytes # (Auto) 0.89 K/mcL (0.10-0.90); Monocytes % (Auto) 12.2 % (1.0-12.0); Neutrophils % (Auto) 66.8 % (38.0-78.0); Platelet Count 143 K/mcL (140-440); RBC 4.03 M/mcL (4.63-6.08); Red Cell Distribution Width 13.3 % (11.5-14.5); WBC 7.3 K/mcL (4.5-11.0)
[2020-12-17 07:37] LABS: ALT/SGPT 45 U/L (<40); AST/SGOT 60 U/L (<40); Albumin 2.9 gm/dL (3.2-5.2); Albumin/Globulin Ratio 0.9 (1.0-2.3); Alkaline Phosphatase 91 U/L (39-117); Bilirubin,Direct 0.4 mg/dL (<0.3); Bilirubin,Total 0.8 mg/dL (0.1-1.0); Blood Urea Nitrogen 9 mg/dL (8-23); Calcium 8.3 mg/dL (8.6-10.4); Carbon Dioxide 23 mmol/L (22-30); Chloride 94 mmol/L (96-108); Globulin 3.4 gm/dL (2.2-3.7); Glomerular Filtration Rate 77; Glucose 135 mg/dL (70-105); Lactate Dehydrogenase 332 U/L (135-225); Phosphorous 2.2 mg/dL (2.5-4.5); Triglycerides 118 mg/dL (<150); Uric Acid 4.8 mg/dL (2.5-8.0)
[2020-12-17] MEDS: INSULIN LISPRO 1 UNIT/0.01 ML UNIT SQ SCH ×4 (08:00→21:30)
[2020-12-17] MEDS: FINASTERIDE 5 MG TABLET PO SCH (10:48)
[2020-12-17] MEDS: TAMSULOSIN 0.4 MG CAPSULE PO SCH (10:48)
[2020-12-17] MEDS: HEPARIN 5,000 UNIT/ML VIAL SQ SCH ×2 (10:48→21:29)
[2020-12-17] MEDS: THIAMINE 100 MG in 0.9 % SODIUM CHLORIDE 50 ML IV SCH (10:48)
[2020-12-17] MEDS: OMEPRAZOLE 20 MG CAPSULE PO SCH (10:49)
[2020-12-17] MEDS: GABAPENTIN 300 MG CAPSULE PO SCH (10:49)
[2020-12-17] MEDS: SENNOSIDES 1 TABLET PO SCH ×2 (10:49→21:31)
[2020-12-17] MEDS: ALLOPURINOL 100 MG TABLET PO SCH (10:49)
[2020-12-17] MEDS: FOLIC ACID 1 MG TABLET PO SCH (10:49)
[2020-12-17] MEDS: SIMVASTATIN 10 MG TABLET PO SCH (10:50)
[2020-12-17] MEDS: LOSARTAN 25 MG TABLET PO SCH (10:50)
[2020-12-17] MEDS: oxyCODONE HCL 5 MG TABLET PO PRN ×2 (11:22→21:46)
[2020-12-17] MEDS ORDERED: METOCLOPRAMIDE 10 MG/2 ML VIAL IV PRN (14:26)
--- NOTE | 2020-12-17 18:31 | Internal Med Progress Note ---
SUBJECTIVE Subjective Patient information: Note initiated : 12/17/20 at 6:25 pm Service Date, if different from initiated Date: [] Patient: Cruz Mccormick 65 y/o M admitted on 12/13/20 for alcohol. Chief Complaint: [] Interval history: Mr. Mccormick is a 65 year old male with a history of hypertension, hyperlipidemia, GERD, gout, liver cirrhosis, alcohol use disorder, multiple prior episodes of acute pancreatitis attributed to alcohol who presented to the ED after a several week binge that culminated in abdominal pain characteristic for acute pancreatitis. In the ED the patient had an elevated lipase of 534 gastric pain. The patient also had an acute kidney injury. Patient also had leukocytosis that resolved with IV fluids. Hospital medicine was asked to admit the patient for acute pancreatitis felt to be secondary to alcohol. Review of the patient's prior did not reveal any evidence of cholelithiasis. In the ED, the patient was able to keep down some liquids. He was started on IV fluid and analgesics with morphine IV as needed. The patient does say that he has a history of severe alcohol withdrawal. Prior to the recent events the patient says that he has been sober for years. 12/14: main complaint is lack of sleep overnight, tolerating clear liquids, robust urine output and renal function improving, decreased IV fluid rate, hemoglobin A1c 6.6, CRP 5.5, RLE duplex negative for DVT. 12/15: had a fever of 100.7 overnight, acute kidney injury resolved, feels nauseous, continuing IV fluid and analgesics, on full liquid diet, added oral prn analgesics. 12/16: no elevated temperature or fevers overnight, advanced diet to regular low fat, discontinued IV fluid, resumed home losartan for hypertension, removed smith catheter. 12/17: Required a smith again after a couple straight caths for urinary retention, hematuria in smith bag likely from traumatic smith placement, feels nauseous today but eating and drinking and having bowel movements. Added Reglan prn for nausea. Physical exam Head: Atraumatic, normal inspection. Eyes: normal appearance, no scleral icterus. Neck: full ROM Respiratory: no respiratory distress. Cardiovascular: normal rate and rhythm, S1, S2. GI/Abdominal: positive bowel sounds, distended, improved tenderness, no guarding Extremities: full range of motion, nontender. Neurological: CN II-XII intact, intact motor, intact sensation. Psychiatric: normal mood. Skin: warm, normal color Constitutional Vitals: Vital Signs Temp Pulse Resp BP Pulse Ox 98.8 F 102 H 22 115/74 95 12/17/20 16:00 12/17/20 16:00 12/17/20 16:00 12/17/20 16:00 12/17/20 16:00 Period Temp Pulse Resp BP Sys/Haque Pulse Ox Last 24 Hr 97.3 F-98.8 F 94-114 14-22 115-145/66-89 93-98 Intake and Output 12/17/20 12/17/20 12/17/20 05:59 13:59 21:59 Intake Total 300 551 Output Total 1000 600 Balance -700 -49 Weight 71.696 kg Patient Weight 12/18/20 05:59 Weight 71.696 kg Intake & Output: Intake & Output 12/17/20 12/17/20 12/17/20 05:59 13:59 21:59 Intake Total 300 551 Output Total 1000 600 Balance -700 -49 Weight 71.696 kg Intake: IV 51 Vitamin B1 100 mg In Sodium 51 Chloride 0.9% 50 ml @ 50 mls/hr IV DAILY [facility] Rx#:[id number] Oral 300 500 Output: Urine Catheter Amount 1000 600 Other: Meal Breakfast Lunch Percent of Meal Consumed 50% Refused Feeding Ability Independent Urine Appearance Small Blood Clots Uretheral (Smith) Clear Urine Color Dark [place] Uretheral (Smith) Dark Yellow Stool Size Small Stool Color Brown Stool Consistency Soft Formed # Bowel Movements 1 OBJ DATA Labs CBC & Chem 7: 12/17/20 05:14 12/17/20 05:14 Labs: Abnormal Lab Results 12/17/20 12/17/20 12/16/20 05:14 05:14 05:28 RBC 4.03 L Hgb 12.7 L Hct 34.6 L MCHC 36.7 H Plt Count [place] % (Auto) 12.2 H Lymph # (Auto) 1.40 L [place] # (Auto) Sodium 132 L 130 L Chloride 94 L 93 L Glucose 135 H 119 H Calcium 8.3 L 8.2 L Phosphorus 2.2 L Magnesium Direct Bilirubin 0.4 H 0.4 H GGT 264 H 281 H AST 60 H 53 H ALT 45 H 43 H Lactate Dehydrogenase 332 H 340 H Albumin 2.9 L 2.8 L Albumin/Globulin Ratio 0.9 L 0.8 L 12/16/20 12/15/20 05:27 05:29 RBC 4.26 L Hgb 13.4 L Hct 36.4 L MCHC 36.8 H Plt Count 132 L [place] % (Auto) 14.4 H Lymph # (Auto) 1.48 L [place] # (Auto) 0.96 H Sodium Chloride Glucose 148 H Calcium 8.2 L Phosphorus Magnesium 1.5 L Direct Bilirubin 0.3 H GGT 296 H AST 48 H ALT 41 H Lactate Dehydrogenase 337 H Albumin 2.6 L Albumin/Globulin Ratio 0.8 L Meds: Medications Acetaminophen (Acetaminophen 500 Mg Tablet) 500 mg PO Q4HP PRN; Protocol PRN Reason: Per Pain Protocol Allopurinol (Allopurinol 100 Mg Tablet) 100 mg PO QDAY [facility] Last Admin: 12/17/20 10:49 Dose: 100 mg Documented by: Dextrose (Dextrose 50% 50 Ml Vial) 0 ml IV UD PRN PRN Reason: Hypoglycemia Diagnostic Test (Pha) (Accu-Chek 1 Each Strip) 1 each FS [facility] Last Admin: 12/17/20 16:45 Dose: 1 each Documented by: Finasteride (Finasteride 5 Mg Tablet) 5 mg PO QDAY [facility] Last Admin: 12/17/20 10:48 Dose: 5 mg Documented by: Folic Acid (Folic Acid 1 Mg Tablet) 1 mg PO DAILY [facility] Last Admin: 12/17/20 10:49 Dose: 1 mg Documented by: Gabapentin (Gabapentin 300 Mg Capsule) 300 mg PO QDAY [facility] Last Admin: 12/17/20 10:49 Dose: 300 mg Documented by: Glucose (Dextrose 31 Gm Oral.Susp) 15 gm PO PRN PRN PRN Reason: Hypoglycemia Heparin Sodium (Porcine) (Heparin 5,000 Unit/Ml Vial) 5,000 unit SQ Q12 [facility] Last Admin: 12/17/20 10:48 Dose: 5,000 unit Documented by: Insulin Glargine (Insulin Glargine, Human 1 Unit/0.01 Ml) 5 unit SQ [facility] Last Admin: 12/16/20 21:09 Dose: 5 units Documented by: Insulin Human Lispro (Insulin Lispro 1 Unit/0.01 Ml Unit) 0 unit SQ [facility]; Protocol Last Admin: 12/17/20 16:51 Dose: 2 unit Documented by: Lactulose (Lactulose 20 Gm/30 Ml Oral.Tonya) 10 gm PO DAILYP PRN PRN Reason: Constipation Losartan Potassium (Losartan 25 Mg Tablet) 25 mg PO QDAY [facility] Last Admin: 12/17/20 10:50 Dose: 25 mg Documented by: Metoclopramide HCl (Metoclopramide 10 Mg/2 Ml Vial) 10 mg IV Q6HP PRN PRN Reason: Nausea And Vomiting Naloxone HCl (Naloxone Hcl 0.4 Mg/Ml Vial) 0.4 mg IV Q10M PRN PRN Reason: Opiate Reversal Omeprazole (Omeprazole 20 Mg Capsule) 20 mg PO QDAY [facility] Last Admin: 12/17/20 10:49 Dose: 20 mg Documented by: Ondansetron HCl (Ondansetron 4 Mg/2 Ml Vial) 4 mg IV Q4HP PRN; Protocol PRN Reason: Nausea And Vomiting Last Admin: 12/17/20 10:47 Dose: 4 mg Documented by: Oxycodone HCl (Oxycodone Hcl 5 Mg Tablet) 5 mg PO Q4HP PRN; Protocol PRN Reason: Per Pain Protocol Last Admin: 12/17/20 11:22 Dose: 5 mg Documented by: Lipase-Protease- Amylase [Creon] 36, 000-114,000- 180,000 Unit Capsule, Delayed Release 3 dose PO AC [facility] Last Admin: 12/17/20 16:45 Dose: 3 dose Documented by: Senna (Sennosides 1 Tablet) 2 tab PO BID [facility] Last Admin: 12/17/20 10:49 Dose: 2 tab Documented by: Simvastatin (Simvastatin 10 Mg Tablet) 10 mg PO DAILY [facility] Last Admin: 12/17/20 10:50 Dose: 10 mg Documented by: Sodium Chloride (0.9 % Sodium Chloride 10 Ml Syringe) 10 ml IV Q8 [facility] Last Admin: 12/17/20 16:47 Dose: 10 ml Documented by: Tamsulosin HCl (Tamsulosin 0.4 Mg Capsule) 0.8 mg PO QDAY [facility] Last Admin: 12/17/20 10:48 Dose: 0.8 mg Documented by: Thiamine HCl (Thiamine 100 Mg Tablet) 100 mg PO DAILY [facility] A/P Narrative A/P Narrative: Assessment: 65 year old male with a history of hypertension, hyperlipidemia, GERD, gout, liver cirrhosis, alcohol use disorder, multiple prior episodes of acute pancreatitis attributed alcohol now admitted for acute pancreatitis likely secondary to alcohol. #Acute pancreatitis likely due to alcohol #Resolved acute kidney injury #Mild hyponatremia #Elevated LFTs-improving #Probable diabetes mellitus #Hypertension #Hyperlipidemia #Gout #BPH with urinary retention #Alcohol use disorder Plan -Essential home meds. -Monitor LFTs. -Lantus and SSI-low. -Vitamin supplementation. -Low fat regular diet. -DVT ppx: heparin -Code status: Full -Disposition: SNF for rehab, probably metformin at discharge for probable type 2 diabetes mellitus Time Spent With Patient Time: Total time spent is greater than 50% in coordination of care (as documented) at patient's floor/unit and/or counseling patient: QUALITY VTE Deep Vein Thrombosis/Pulmonary Embolism Present on Admission: No
[2020-12-17] MEDS: INSULIN GLARGINE, HUMAN 1 UNIT/0.01 ML SQ SCH (21:30)
[2020-12-18] MEDS: 0.9 % SODIUM CHLORIDE 10 ML SYRINGE IV SCH ×3 (04:40→22:02)
[2020-12-18] MEDS: oxyCODONE HCL 5 MG TABLET PO PRN ×3 (04:51→22:01)
[2020-12-18 07:23] LABS: ALT/SGPT 42 U/L (<40); AST/SGOT 50 U/L (<40); Albumin 2.8 gm/dL (3.2-5.2); Albumin/Globulin Ratio 0.8 (1.0-2.3); Alkaline Phosphatase 90 U/L (39-117); Bilirubin,Direct 0.4 mg/dL (<0.3); Bilirubin,Total 0.9 mg/dL (0.1-1.0); Blood Urea Nitrogen 10 mg/dL (8-23); Calcium 8.1 mg/dL (8.6-10.4); Carbon Dioxide 23 mmol/L (22-30); Chloride 96 mmol/L (96-108); Globulin 3.6 gm/dL (2.2-3.7); Glomerular Filtration Rate 77; Glucose 132 mg/dL (70-105); Lactate Dehydrogenase 335 U/L (135-225); Phosphorous 2.2 mg/dL (2.5-4.5); Triglycerides 115 mg/dL (<150); Uric Acid 4.6 mg/dL (2.5-8.0)
[2020-12-18 07:36] LABS: Basophils # (Auto) 0.04 K/mcL (0.00-0.30); Basophils % (Auto) 0.5 % (0.0-2.0); Eosinophils # (Auto) 0.12 K/mcL (0.00-0.70); Eosinophils % (Auto) 1.5 % (0.0-7.0); Hematocrit 33.8 % (40.1-51.0); Hemoglobin 12.4 g/dL (13.7-17.5); Lymphocytes # (Auto) 1.87 K/mcL (1.50-4.80); Lymphocytes % (Auto) 23.5 % (15.5-49.0); Mean Cell Volume 85.8 fL (80.0-100.0); Mean Corpuscular HGB Conc 36.7 g/dL (31.0-36.0); Mean Platelet Volume 10.1 fL (7.4-10.4); Monocytes # (Auto) 0.84 K/mcL (0.10-0.90); Monocytes % (Auto) 10.6 % (1.0-12.0); Neutrophils % (Auto) 63.9 % (38.0-78.0); Platelet Count 141 K/mcL (140-440); RBC 3.94 M/mcL (4.63-6.08); Red Cell Distribution Width 13.5 % (11.5-14.5)
[2020-12-18] MEDS: OMEPRAZOLE 20 MG CAPSULE PO SCH (07:58)
[2020-12-18] MEDS: LOSARTAN 25 MG TABLET PO SCH (07:58)
[2020-12-18] MEDS: LIPASE PROTEASE AMYLASE PO SCH ×3 (07:58→17:36)
[2020-12-18] MEDS: TAMSULOSIN 0.4 MG CAPSULE PO SCH (07:59)
[2020-12-18] MEDS: FINASTERIDE 5 MG TABLET PO SCH (07:59)
[2020-12-18] MEDS: GABAPENTIN 300 MG CAPSULE PO SCH (07:59)
[2020-12-18] MEDS: THIAMINE 100 MG TABLET PO SCH (07:59)
[2020-12-18] MEDS: ALLOPURINOL 100 MG TABLET PO SCH (07:59)
[2020-12-18] MEDS: HEPARIN 5,000 UNIT/ML VIAL SQ SCH ×2 (07:59→22:00)
[2020-12-18] MEDS: FOLIC ACID 1 MG TABLET PO SCH (07:59)
[2020-12-18] MEDS: SIMVASTATIN 10 MG TABLET PO SCH (07:59)
[2020-12-18] MEDS: INSULIN LISPRO 1 UNIT/0.01 ML UNIT SQ SCH ×4 (08:00→22:01)
[2020-12-18] MEDS: SENNOSIDES 1 TABLET PO SCH ×2 (08:34→22:02)
[2020-12-18] MEDS ORDERED: MAGNESIUM SULFATE 2 GM/50 ML BAG IV ONE (11:08)
--- NOTE | 2020-12-18 11:08 | Internal Med Progress Note ---
SUBJECTIVE Subjective Patient information: Note initiated : 12/18/20 at 11:06 am Service Date, if different from initiated Date: [] Patient: Cruz Mccormick 65 y/o M admitted on 12/13/20 for alcohol. Chief Complaint: [] Interval history: Mr. Mccormick is a 65 year old male with a history of hypertension, hyperlipidemia, GERD, gout, liver cirrhosis, alcohol use disorder, multiple prior episodes of acute pancreatitis attributed to alcohol who presented to the ED after a several week binge that culminated in abdominal pain characteristic for acute pancreatitis. In the ED the patient had an elevated lipase of 534 gastric pain. The patient also had an acute kidney injury. Patient also had leukocytosis that resolved with IV fluids. Hospital medicine was asked to admit the patient for acute pancreatitis felt to be secondary to alcohol. Review of the patient's prior did not reveal any evidence of cholelithiasis. In the ED, the patient was able to keep down some liquids. He was started on IV fluid and analgesics with morphine IV as needed. The patient does say that he has a history of severe alcohol withdrawal. Prior to the recent events the patient says that he has been sober for years. 12/14: main complaint is lack of sleep overnight, tolerating clear liquids, robust urine output and renal function improving, decreased IV fluid rate, hemoglobin A1c 6.6, CRP 5.5, RLE duplex negative for DVT. 12/15: had a fever of 100.7 overnight, acute kidney injury resolved, feels nauseous, continuing IV fluid and analgesics, on full liquid diet, added oral prn analgesics. 12/16: no elevated temperature or fevers overnight, advanced diet to regular low fat, discontinued IV fluid, resumed home losartan for hypertension, removed smith catheter. 12/17: Required a smith again after a couple straight caths for urinary retention, hematuria in smith bag likely from traumatic smith placement, feels nauseous today but eating and drinking and having bowel movements. Added Reglan prn for nausea. 12/18: Eating better today, hematuria improved, likely discharge to home with home health tomorrow if the patient continues to improve. At this point he will probably continue to require the smith catheter at discharge and can follow up with urology. Discontinued CIWA scoring, no evidence of alcohol withdrawal. Replaced magnesium. Physical exam Head: Atraumatic, normal inspection. Eyes: normal appearance, no scleral icterus. Neck: full ROM Respiratory: no respiratory distress. Cardiovascular: normal rate and rhythm, S1, S2. GI/Abdominal: positive bowel sounds, distended, improved tenderness, no guarding Extremities: full range of motion, nontender. Neurological: CN II-XII intact, intact motor, intact sensation. Psychiatric: normal mood. Skin: warm, normal color Constitutional Vitals: Vital Signs Temp Pulse Resp BP Pulse Ox 98.0 F 85 22 128/75 95 12/18/20 08:00 12/18/20 08:00 12/18/20 08:00 12/18/20 08:00 12/18/20 08:00 Period Temp Pulse Resp BP Sys/Haque Pulse Ox Last 24 Hr 97.7 F-98.8 F 83-112 16-22 97-128/54-76 94-95 Intake and Output 12/17/20 12/18/20 12/18/20 21:59 05:59 13:59 Intake Total 551 300 Output Total 600 600 Balance -49 -300 Weight 71.668 kg Intake & Output: Intake & Output 12/17/20 12/18/20 12/18/20 21:59 05:59 13:59 Intake Total 551 300 Output Total 600 600 Balance -49 -300 Weight 71.668 kg Intake: IV 51 Vitamin B1 100 mg In Sodium 51 Chloride 0.9% 50 ml @ 50 mls/hr IV DAILY [facility] Rx#:[id number] Oral 500 300 Output: Urine Catheter Amount 600 600 Other: Meal Lunch Percent of Meal Consumed Refused Urine Appearance Uretheral (Smith) Clear Urine Color Dark Yellow Uretheral (Smith) Dark Yellow Blood Tinged Stool Size Moderate Stool Color Brown Stool Consistency Soft # Bowel Movements 4 OBJ DATA Labs CBC & Chem 7: 12/18/20 05:12 12/18/20 05:12 Labs: Abnormal Lab Results 12/18/20 12/18/20 12/17/20 05:12 05:12 05:14 RBC 3.94 L 4.03 L Hgb 12.4 L 12.7 L Hct 33.8 L 34.6 L MCHC 36.7 H 36.7 H Plt Count [place] % (Auto) 12.2 H Lymph # (Auto) 1.40 L [place] # (Auto) Sodium 131 L Chloride Glucose 132 H Calcium 8.1 L Phosphorus 2.2 L Direct Bilirubin 0.4 H GGT 244 H AST 50 H ALT 42 H Lactate Dehydrogenase 335 H Albumin 2.8 L Albumin/Globulin Ratio 0.8 L 12/17/20 12/16/20 12/16/20 05:14 05:28 05:27 RBC 4.26 L Hgb 13.4 L Hct 36.4 L MCHC 36.8 H Plt Count 132 L [place] % (Auto) 14.4 H Lymph # (Auto) 1.48 L [place] # (Auto) 0.96 H Sodium 132 L 130 L Chloride 94 L 93 L Glucose 135 H 119 H Calcium 8.3 L 8.2 L Phosphorus 2.2 L Direct Bilirubin 0.4 H 0.4 H GGT 264 H 281 H AST 60 H 53 H ALT 45 H 43 H Lactate Dehydrogenase 332 H 340 H Albumin 2.9 L 2.8 L Albumin/Globulin Ratio 0.9 L 0.8 L Meds: Medications Acetaminophen (Acetaminophen 500 Mg Tablet) 500 mg PO Q4HP PRN; Protocol PRN Reason: Per Pain Protocol Allopurinol (Allopurinol 100 Mg Tablet) 100 mg PO QDAY [facility] Last Admin: 12/18/20 07:59 Dose: 100 mg Documented by: Dextrose (Dextrose 50% 50 Ml Vial) 0 ml IV UD PRN PRN Reason: Hypoglycemia Diagnostic Test (Pha) (Accu-Chek 1 Each Strip) 1 each FS ACHS [facility] Last Admin: 12/18/20 07:58 Dose: 1 each Documented by: Finasteride (Finasteride 5 Mg Tablet) 5 mg PO QDAY [facility] Last Admin: 12/18/20 07:59 Dose: 5 mg Documented by: Folic Acid (Folic Acid 1 Mg Tablet) 1 mg PO DAILY [facility] Last Admin: 12/18/20 07:59 Dose: 1 mg Documented by: Gabapentin (Gabapentin 300 Mg Capsule) 300 mg PO QDAY [facility] Last Admin: 12/18/20 07:59 Dose: 300 mg Documented by: Glucose (Dextrose 31 Gm Oral.Susp) 15 gm PO PRN PRN PRN Reason: Hypoglycemia Heparin Sodium (Porcine) (Heparin 5,000 Unit/Ml Vial) 5,000 unit SQ Q12 [facility] Last Admin: 12/18/20 07:59 Dose: 5,000 unit Documented by: Insulin Glargine (Insulin Glargine, Human 1 Unit/0.01 Ml) 5 unit SQ HS [facility] Last Admin: 12/17/20 21:30 Dose: 5 units Documented by: Insulin Human Lispro (Insulin Lispro 1 Unit/0.01 Ml Unit) 0 unit SQ [facility]; Protocol Last Admin: 12/18/20 08:00 Dose: 1 unit Documented by: Lactulose (Lactulose 20 Gm/30 Ml Oral.Tonya) 10 gm PO DAILYP PRN PRN Reason: Constipation Losartan Potassium (Losartan 25 Mg Tablet) 25 mg PO QDAY [facility] Last Admin: 12/18/20 07:58 Dose: 25 mg Documented by: Metoclopramide HCl (Metoclopramide 10 Mg/2 Ml Vial) 10 mg IV Q6HP PRN PRN Reason: Nausea And Vomiting Naloxone HCl (Naloxone Hcl 0.4 Mg/Ml Vial) 0.4 mg IV Q10M PRN PRN Reason: Opiate Reversal Omeprazole (Omeprazole 20 Mg Capsule) 20 mg PO QDAY [facility] Last Admin: 12/18/20 07:58 Dose: 20 mg Documented by: Ondansetron HCl (Ondansetron 4 Mg/2 Ml Vial) 4 mg IV Q4HP PRN; Protocol PRN Reason: Nausea And Vomiting Last Admin: 12/17/20 10:47 Dose: 4 mg Documented by: Oxycodone HCl (Oxycodone Hcl 5 Mg Tablet) 5 mg PO Q4HP PRN; Protocol PRN Reason: Per Pain Protocol Last Admin: 12/18/20 04:51 Dose: 5 mg Documented by: Lipase-Protease- Amylase [Creon] 36, 000-114,000- 180,000 Unit Capsule, Delayed Release 3 dose PO AC [facility] Last Admin: 12/18/20 07:58 Dose: 3 dose Documented by: Senna (Sennosides 1 Tablet) 2 tab PO BID [facility] Last Admin: 12/18/20 08:34 Dose: Not Given Documented by: Simvastatin (Simvastatin 10 Mg Tablet) 10 mg PO DAILY [facility] Last Admin: 12/18/20 07:59 Dose: 10 mg Documented by: Sodium Chloride (0.9 % Sodium Chloride 10 Ml Syringe) 10 ml IV Q8 [facility] Last Admin: 12/18/20 04:40 Dose: 10 ml Documented by: Tamsulosin HCl (Tamsulosin 0.4 Mg Capsule) 0.8 mg PO QDAY [facility] Last Admin: 12/18/20 07:59 Dose: 0.8 mg Documented by: Thiamine HCl (Thiamine 100 Mg Tablet) 100 mg PO DAILY [facility] Last Admin: 12/18/20 07:59 Dose: 100 mg Documented by: A/P Narrative A/P Narrative: Assessment: 65 year old male with a history of hypertension, h yperlipidemia, GERD, gout, liver cirrhosis, alcohol use disorder, multiple prior episodes of acute pancreatitis attributed alcohol now admitted for moderately severe acute pancreatitis likely secondary to alcohol. The patient had a prerenal JERROD when admitted that resolved with IV fluid. The clinical course was complicated by urinary retention that require a smith placement then replacement and some hematuria likely from traumatic smith placement. The patient had BPH. Otherwise the patient is now tolerating a diet and will likely go home with home health at discharge. #Acute pancreatitis likely due to alcohol #Hematuria likely from traumatic smith placement #Urinary retention requiring smith placement #Mild hyponatremia #Elevated LFTs-improving #Probable diabetes mellitus #Hypertension #Hyperlipidemia #Gout #BPH #Alcohol use disorder #Resolved acute kidney injury Plan -Essential home meds, higher dose of Flomax now. -Lantus and SSI-low. -Vitamin supplementation. -Low fat regular diet. -DVT ppx: heparin -Code status: Full -Disposition: home with home health, possibly tomorrow if he continues to improve. Probably metformin at discharge for type 2 diabetes mellitus vs life style changes then repeat Hgb A1C in a few months. Follow up with podiatry for smith catheter if he still needs one when discharged. Time Spent With Patient Time: Total time spent is greater than 50% in coordination of care (as documented) at patient's floor/unit and/or counseling patient: QUALITY VTE Deep Vein Thrombosis/Pulmonary Embolism Present on Admission: No
--- NOTE | 2020-12-18 13:45 | Internal Med Progress Note ---
SUBJECTIVE Subjective Patient information: Note initiated : 12/18/20 at 1:39 pm Service Date, if different from initiated Date: [] Patient: Cruz Mccormick 65 y/o M admitted on 12/13/20 for alcohol. Chief Complaint: [] Interval history: Mr. Mccormick is a 65 year old male with a history of hypertension, hyperlipidemia, GERD, gout, liver cirrhosis, alcohol use disorder, multiple prior episodes of acute pancreatitis attributed to alcohol who presented to the ED after a several week binge that culminated in abdominal pain characteristic for acute pancreatitis. In the ED the patient had an elevated lipase of 534 gastric pain. The patient also had an acute kidney injury. Patient also had leukocytosis that resolved with IV fluids. Hospital medicine was asked to admit the patient for acute pancreatitis felt to be secondary to alcohol. Review of the patient's prior did not reveal any evidence of cholelithiasis. In the ED, the patient was able to keep down some liquids. He was started on IV fluid and analgesics with morphine IV as needed. The patient does say that he has a history of severe alcohol withdrawal. Prior to the recent events the patient says that he has been sober for years. 12/14: main complaint is lack of sleep overnight, tolerating clear liquids, robust urine output and renal function improving, decreased IV fluid rate, hemoglobin A1c 6.6, CRP 5.5, RLE duplex negative for DVT. 12/15: had a fever of 100.7 overnight, acute kidney injury resolved, feels nauseous, continuing IV fluid and analgesics, on full liquid diet, added oral prn analgesics. 12/16: no elevated temperature or fevers overnight, advanced diet to regular low fat, discontinued IV fluid, resumed home losartan for hypertension, removed smith catheter. 12/17: Required a smith again after a couple straight caths for urinary retention, hematuria in smith bag likely from traumatic smith placement, feels nauseous today but eating and drinking and having bowel movements. Added Reglan prn for nausea. 12/18: Eating better today, hematuria improved, likely discharge to home with home health tomorrow if the patient continues to improve. At this point he will probably continue to require the smith catheter at discharge and can follow up with urology. Discontinued CIWA scoring, no evidence of alcohol withdrawal. Replaced magnesium. 12/19 Constitutional Vitals: Vital Signs Temp Pulse Resp BP Pulse Ox 98.0 F 122 H 22 120/70 97 12/18/20 12:00 12/18/20 12:00 12/18/20 12:00 12/18/20 12:00 12/18/20 12:00 Period Temp Pulse Resp BP Sys/Haque Pulse Ox Last 24 Hr 98.0 F-98.8 F 83-122 18-22 97-128/54-75 94-97 Intake and Output 12/17/20 12/18/20 12/18/20 21:59 05:59 13:59 Intake Total 551 300 300 Output Total 600 600 Balance -49 -300 300 Weight 71.668 kg Intake & Output: Intake & Output 12/17/20 12/18/20 12/18/20 21:59 05:59 13:59 Intake Total 551 300 300 Output Total 600 600 Balance -49 -300 300 Weight 71.668 kg Intake: IV 51 Vitamin B1 100 mg In Sodium 51 Chloride 0.9% 50 ml @ 50 mls/hr IV DAILY [facility] Rx#:[id number] Oral 500 300 300 Output: Urine Catheter Amount 600 600 Other: Meal Lunch Percent of Meal Consumed Refused Urine Appearance Uretheral (Smith) Clear Urine Color Dark Yellow Uretheral (Smith) Dark Yellow Blood Tinged Stool Size Moderate Stool Color Brown Stool Consistency Soft # Bowel Movements 4 Exam: General: Alert, Awake, No acute Distress Eyes/N/T: EOMI, Head/Neck: neck supple, CV: RRR, No murmurs, Pulm: Clear b/l, no wheezing/rhonchi/rales Abd: positive bowel sounds, distended, improved tenderness, no guarding Ext: no clubbing/cyanosis/edema Neuro: Alert, no focal deficits, moves all extremities, Skin: warm/dry OBJ DATA Labs CBC & Chem 7: 12/18/20 05:12 12/18/20 05:12 Labs: Abnormal Lab Results 12/18/20 12/18/20 12/17/20 05:12 05:12 05:14 RBC 3.94 L 4.03 L Hgb 12.4 L 12.7 L Hct 33.8 L 34.6 L MCHC 36.7 H 36.7 H Plt Count [place] % (Auto) 12.2 H Lymph # (Auto) 1.40 L [place] # (Auto) Sodium 131 L Chloride Glucose 132 H Calcium 8.1 L Phosphorus 2.2 L Direct Bilirubin 0.4 H GGT 244 H AST 50 H ALT 42 H Lactate Dehydrogenase 335 H Albumin 2.8 L Albumin/Globulin Ratio 0.8 L 12/17/20 12/16/20 12/16/20 05:14 05:28 05:27 RBC 4.26 L Hgb 13.4 L Hct 36.4 L MCHC 36.8 H Plt Count 132 L [place] % (Auto) 14.4 H Lymph # (Auto) 1.48 L [place] # (Auto) 0.96 H Sodium 132 L 130 L Chloride 94 L 93 L Glucose 135 H 119 H Calcium 8.3 L 8.2 L Phosphorus 2.2 L Direct Bilirubin 0.4 H 0.4 H GGT 264 H 281 H AST 60 H 53 H ALT 45 H 43 H Lactate Dehydrogenase 332 H 340 H Albumin 2.9 L 2.8 L Albumin/Globulin Ratio 0.9 L 0.8 L Meds: Medications Acetaminophen (Acetaminophen 500 Mg Tablet) 500 mg PO Q4HP PRN; Protocol PRN Reason: Per Pain Protocol Allopurinol (Allopurinol 100 Mg Tablet) 100 mg PO QDAY [facility] Last Admin: 12/18/20 07:59 Dose: 100 mg Documented by: Dextrose (Dextrose 50% 50 Ml Vial) 0 ml IV UD PRN PRN Reason: Hypoglycemia Diagnostic Test (Pha) (Accu-Chek 1 Each Strip) 1 each FS ACHS [facility] Last Admin: 12/18/20 12:06 Dose: 1 each Documented by: Finasteride (Finasteride 5 Mg Tablet) 5 mg PO QDAY [facility] Last Admin: 12/18/20 07:59 Dose: 5 mg Documented by: Folic Acid (Folic Acid 1 Mg Tablet) 1 mg PO DAILY [facility] Last Admin: 12/18/20 07:59 Dose: 1 mg Documented by: Gabapentin (Gabapentin 300 Mg Capsule) 300 mg PO QDAY [facility] Last Admin: 12/18/20 07:59 Dose: 300 mg Documented by: Glucose (Dextrose 31 Gm Oral.Susp) 15 gm PO PRN PRN PRN Reason: Hypoglycemia Heparin Sodium (Porcine) (Heparin 5,000 Unit/Ml Vial) 5,000 unit SQ Q12 [facility] Last Admin: 12/18/20 07:59 Dose: 5,000 unit Documented by: Insulin Glargine (Insulin Glargine, Human 1 Unit/0.01 Ml) 5 unit SQ [facility] Last Admin: 12/17/20 21:30 Dose: 5 units Documented by: Insulin Human Lispro (Insulin Lispro 1 Unit/0.01 Ml Unit) 0 unit SQ [facility]; Protocol Last Admin: 12/18/20 12:46 Dose: 3 unit Documented by: Lactulose (Lactulose 20 Gm/30 Ml Oral.Tonya) 10 gm PO DAILYP PRN PRN Reason: Constipation Losartan Potassium (Losartan 25 Mg Tablet) 25 mg PO QDAY [facility] Last Admin: 12/18/20 07:58 Dose: 25 mg Documented by: Metoclopramide HCl (Metoclopramide 10 Mg/2 Ml Vial) 10 mg IV Q6HP PRN PRN Reason: Nausea And Vomiting Naloxone HCl (Naloxone Hcl 0.4 Mg/Ml Vial) 0.4 mg IV Q10M PRN PRN Reason: Opiate Reversal Omeprazole (Omeprazole 20 Mg Capsule) 20 mg PO QDAY [facility] Last Admin: 12/18/20 07:58 Dose: 20 mg Documented by: Ondansetron HCl (Ondansetron 4 Mg/2 Ml Vial) 4 mg IV Q4HP PRN; Protocol PRN Reason: Nausea And Vomiting Last Admin: 12/17/20 10:47 Dose: 4 mg Documented by: Oxycodone HCl (Oxycodone Hcl 5 Mg Tablet) 5 mg PO Q4HP PRN; Protocol PRN Reason: Per Pain Protocol Last Admin: 12/18/20 12:46 Dose: 5 mg Documented by: Lipase-Protease- Amylase [Creon] 36, 000-114,000- 180,000 Unit Capsule, Delayed Release 3 dose PO AC [facility] Last Admin: 12/18/20 12:47 Dose: 3 dose Documented by: Senna (Sennosides 1 Tablet) 2 tab PO BID [facility] Last Admin: 12/18/20 08:34 Dose: Not Given Documented by: Simvastatin (Simvastatin 10 Mg Tablet) 10 mg PO DAILY [facility] Last Admin: 12/18/20 07:59 Dose: 10 mg Documented by: Sodium Chloride (0.9 % Sodium Chloride 10 Ml Syringe) 10 ml IV Q8 [facility] Last Admin: 12/18/20 12:47 Dose: 10 ml Documented by: Tamsulosin HCl (Tamsulosin 0.4 Mg Capsule) 0.8 mg PO QDAY [facility] Last Admin: 12/18/20 07:59 Dose: 0.8 mg Documented by: Thiamine HCl (Thiamine 100 Mg Tablet) 100 mg PO DAILY [facility] Last Admin: 12/18/20 07:59 Dose: 100 mg Documented by: A/P Narrative A/P Narrative: Assessment: #Acute pancreatitis: likely due to alcohol #Hematuria: likely from traumatic smiht placement #Urinary retention w/BPH: requiring smith placement #Mild hyponatremia #Elevated LFTs: improving #DM (new dx): A1c 6.6 #HTN/HLD: #Alcohol use disorder #JERROD: resolved Plan -Essential home meds, higher dose of Flomax now -Lantus and SSI-low -Vitamin supplementation -Low fat regular diet, ccd -smith catheter, d/c in AM, if need to be reinserted than f/u with Urology -DM education, ssi. metformin at discharge vs life style changes then repeat Hgb A1C in a few months -Disposition: home with home health, possibly tomorrow if he continues to improve. -DVT ppx: heparin Code status: [employer] Bell Ringer Spent With Patient Time: Total time spent is greater than 50% in coordination of care (as documented) at patient's floor/unit and/or counseling patient: QUALITY VTE Deep Vein Thrombosis/Pulmonary Embolism Present on Admission: No
--- NOTE | 2020-12-18 13:47 | Discharge Summary ---
Discharge Provider Provider Patient information: Note initiated : 12/18/20 at 1:45 pm Service Date, if different from initiated Date: [] Patient: Cruz Mccormick 65 y/o M admitted on 12/13/20 for alcohol. Chief Complaint: [] Date of admission: 12/13/20 22:27 Discharge date: 12/19/20 Primary care physician: oCrdell Cruz MD Consults: 12/13/20 Consult to Physician [CONS] Stat Comment: Consulting Provider: Janusz Marshall Reason For Exam: Physician to Consult Discharge Meds Discharge Medications Home Medications gabapentin 100 mg capsule 300 mg PO QDAY cap 02/16/20 [History Confirmed 12/14/20 Last Taken 12/11/20] pravastatin 20 mg tablet 20 mg PO QDAY #90 tab 02/16/20 [Rx Confirmed 12/14/20 Last Taken 12/11/20] dicyclomine 10 mg capsule 10 mg PO BID 03/11/20 [History Confirmed 12/14/20 Last Taken 12/11/20] acyclovir 400 mg tablet 400 mg PO TID PRN #15 tab 05/16/20 [Rx Confirmed 12/13/20 Last Taken Unknown] allopurinol 100 mg tablet 100 mg PO QDAY #90 tab 10/29/20 [Rx Confirmed 12/14/20 Last Taken 12/11/20] finasteride 5 mg tablet 5 mg PO QDAY #90 tab 11/01/20 [Rx Confirmed 12/14/20 Last Taken 12/11/20] tamsulosin 0.4 mg capsule 0.4 mg PO QDAY #180 cap 11/01/20 [Rx Confirmed 12/14/20 Last Taken 12/11/20] omeprazole 20 mg capsule,delayed release 20 mg PO QDAY #90 cap 11/13/20 [Rx Confirmed 12/14/20 Last Taken 12/11/20] losartan 25 mg tablet 25 mg PO QDAY #90 tab 12/12/20 [Rx Confirmed 12/14/20 Last Taken 12/11/20] Creon 3 cap PO AC 12/16/20 [History Confirmed 12/16/20 Last Taken Unknown] COURSE Hospital Course Hospital course: Interval history: Mr. Mccormick is a 65 year old male with a history of hypertension, hyperlipidemia, GERD, gout, liver cirrhosis, alcohol use disorder, multiple prior episodes of acute pancreatitis attributed to alcohol who presented to the ED after a several week binge that culminated in abdominal pain characteristic for acute pancreatitis. In the ED the patient had an elevated lipase of 534 gastric pain. The patient also had an acute kidney injury. Patient also had leukocytosis that resolved with IV fluids. Hospital medicine was asked to admit the patient for acute pancreatitis felt to be secondary to alcohol. Review of the patient's prior did not reveal any evidence of cholelithiasis. In the ED, the patient was able to keep down some liquids. He was started on IV fluid and analgesics with morphine IV as needed. The patient does say that he has a history of severe alcohol withdrawal. Prior to the recent events the patient says that he has been sober for years. 12/14: main complaint is lack of sleep overnight, tolerating clear liquids, robust urine output and renal function improving, decreased IV fluid rate, hemoglobin A1c 6.6, CRP 5.5, RLE duplex negative for DVT. 12/15: had a fever of 100.7 overnight, acute kidney injury resolved, feels nauseous, continuing IV fluid and analgesics, on full liquid diet, added oral prn analgesics. 12/16: no elevated temperature or fevers overnight, advanced diet to regular low fat, discontinued IV fluid, resumed home losartan for hypertension, removed brown catheter. 12/17: Required a brown again after a couple straight caths for urinary retention, hematuria in brown bag likely from traumatic brown placement, feels nauseous today but eating and drinking and having bowel movements. Added Reglan prn for nausea. 12/18: Eating better today, hematuria improved, likely discharge to home with home health tomorrow if the patient continues to improve. At this point he will probably continue to require the brown catheter at discharge and can follow up with urology. Discontinued CIWA scoring, no evidence of alcohol withdrawal. Replaced magnesium. 12/19 Tolerating diet. Pain improved. Patient desired to go home. Will DC Brown and see if he is able to maintain without it, if not will replace and have him follow-up with urology. Discussed diabetes diagnosis and patient opted for lifestyle changes. Referral placed for diabetic education Assessment: #Acute pancreatitis: likely due to alcohol #Hematuria: likely from traumatic brown placement #Urinary retention w/BPH: requiring brown placement #Mild hyponatremia #Elevated LFTs: improving #DM (new dx): A1c 6.6 #HTN/HLD: #Alcohol use disorder #JERROD: resolved Plan -Essential home meds, higher dose of Flomax now -Lantus and SSI-low -Vitamin supplementation -Low fat regular diet, ccd -brown catheter, d/c in AM, if need to be reinserted than f/u with Urology -DM education, ssi. metformin at discharge vs life style changes then repeat Hgb A1C in a few months Discharge diagnosis: Alcoholic pancreatitis urinary retention hyponatremia transaminitis diabete Secondary discharge diagnosis: Hypertension gout hyperlipidemia alcohol use disorder JERROD Time Spent with Patient Time attestation: Total time spent providing and/or coordinating discharge services: Time spent: Greater than 30 minutes EXAM Constitutional Vitals: Temp Pulse Resp BP Pulse Ox 98.0 F 122 H 22 120/70 97 12/18/20 12:00 12/18/20 12:00 12/18/20 12:00 12/18/20 12:00 12/18/20 12:00 Discharge Data Data Completed and Pending Labs on day of discharge: Labs from last 24 hours 12/18/20 12/18/20 05:12 05:12 WBC 8.0 RBC 3.94 L Hgb 12.4 L Hct 33.8 L MCV 85.8 MCH 31.5 MCHC 36.7 H RDW 13.5 Plt Count 141 MPV 10.1 Neut % (Auto) 63.9 Lymph % (Auto) 23.5 [place] % (Auto) 10.6 Eos % (Auto) 1.5 Baso % (Auto) 0.5 Lymph # (Auto) 1.87 Howard # (Auto) 0.84 Eos # (Auto) 0.12 Baso # (Auto) 0.04 Absolute Neutrophils 5.08 Sodium 131 L Potassium 4.1 Chloride 96 Carbon Dioxide 23 Anion Gap 12.0 BUN 10 Creatinine 1.0 GFR Calculation 77 Glucose 132 H Uric Acid 4.6 Calcium 8.1 L Phosphorus 2.2 L Magnesium 1.6 Total Bilirubin 0.9 Direct Bilirubin 0.4 H GGT 244 H AST 50 H ALT 42 H Alkaline Phosphatase 90 Lactate Dehydrogenase 335 H Total Protein 6.4 Albumin 2.8 L Globulin 3.6 Albumin/Globulin Ratio 0.8 L Triglycerides 115 Discharge Plan Patient/Caregiver Discharge Instructions Activity: increase activity as tolerated Diet: Consistent Carbohydrate Activity Restrictions/Additional Instructions: Follow-up with urology in 3 to 7 days if the Brown catheter needs to be replaced prior to discharge. Follow-up with community nutrition educator 2 to 5 days. Prescriptions: Continued acyclovir 400 mg tablet 400 mg PO TID PRN (Reason: cold sores) Qty: 15 RF: 2 allopurinol 100 mg tablet 100 mg PO QDAY Qty: 90 RF: 1 omeprazole 20 mg capsule,delayed release(DR/EC) 20 mg PO QDAY Qty: 90 RF: 1 losartan 25 mg tablet 25 mg PO QDAY Qty: 90 RF: 1 gabapentin 100 mg capsule 300 mg PO QDAY RF: 0 pravastatin 20 mg tablet 20 mg PO QDAY Qty: 90 RF: 1 dicyclomine 10 mg capsule 10 mg PO BID RF: 0 Creon 36,000-114,000- 180,000 unit capsule,delayed release(DR/EC) 3 cap PO AC RF: 0 finasteride 5 mg tablet 5 mg PO QDAY Qty: 90 RF: 3 No Action tamsulosin [Flomax] 0.4 mg capsule 0.4 mg PO QDAY Qty: 180 RF: 5 Follow Up Plan Follow up with: Cordell Cruz MD [Primary Care Provider] - Patient Disposition: Home Health Service Prognosis: Fair Overall status at discharge: patient is progressing back to baseline Discharge Orders: Discharge Order (Routine); Ordered 12/19/20 Ordered By: Etienne Bae [facility] VTE Deep Vein Thrombosis/Pulmonary Embolism Present on Admission: No
[2020-12-18] MEDS: INSULIN GLARGINE, HUMAN 1 UNIT/0.01 ML SQ SCH (22:00)
[2020-12-19] MEDS: 0.9 % SODIUM CHLORIDE 10 ML SYRINGE IV SCH (04:38)
--- NOTE | 2020-12-19 08:08 | Internal Med Progress Note ---
SUBJECTIVE Subjective Patient information: Note initiated : 12/19/20 at 8:07 am Service Date, if different from initiated Date: [] Patient: Cruz Mccormick 65 y/o M admitted on 12/13/20 for alcohol. Chief Complaint: [] Interval history: Mr. Mccormick is a 65 year old male with a history of hypertension, hyperlipidemia, GERD, gout, liver cirrhosis, alcohol use disorder, multiple prior episodes of acute pancreatitis attributed to alcohol who presented to the ED after a several week binge that culminated in abdominal pain characteristic for acute pancreatitis. In the ED the patient had an elevated lipase of 534 gastric pain. The patient also had an acute kidney injury. Patient also had leukocytosis that resolved with IV fluids. Hospital medicine was asked to admit the patient for acute pancreatitis felt to be secondary to alcohol. Review of the patient's prior did not reveal any evidence of cholelithiasis. In the ED, the patient was able to keep down some liquids. He was started on IV fluid and analgesics with morphine IV as needed. The patient does say that he has a history of severe alcohol withdrawal. Prior to the recent events the patient says that he has been sober for years. 12/14: main complaint is lack of sleep overnight, tolerating clear liquids, robust urine output and renal function improving, decreased IV fluid rate, hemoglobin A1c 6.6, CRP 5.5, RLE duplex negative for DVT. 12/15: had a fever of 100.7 overnight, acute kidney injury resolved, feels nauseous, continuing IV fluid and analgesics, on full liquid diet, added oral prn analgesics. 12/16: no elevated temperature or fevers overnight, advanced diet to regular low fat, discontinued IV fluid, resumed home losartan for hypertension, removed smith catheter. 12/17: Required a smith again after a couple straight caths for urinary retention, hematuria in smith bag likely from traumatic smith placement, feels nauseous today but eating and drinking and having bowel movements. Added Reglan prn for nausea. 12/18: Eating better today, hematuria improved, likely discharge to home with home health tomorrow if the patient continues to improve. At this point he will probably continue to require the smith catheter at discharge and can follow up with urology. Discontinued CIWA scoring, no evidence of alcohol withdrawal. Replaced magnesium. 12/19 Constitutional Vitals: Vital Signs Temp Pulse Resp BP Pulse Ox 97.3 F 83 18 131/67 97 12/19/20 07:40 12/19/20 07:40 12/19/20 07:40 12/19/20 07:40 12/19/20 07:40 Period Temp Pulse Resp BP Sys/Haque Pulse Ox Last 24 Hr 97.3 F-98.6 F 83-122 18-22 104-131/66-70 95-97 Intake and Output 12/18/20 12/19/20 12/19/20 21:59 05:59 13:59 Intake Total 880 400 Output Total 550 700 Balance 330 -300 Weight 70.505 kg Intake & Output: Intake & Output 12/18/20 12/19/20 12/19/20 21:59 05:59 13:59 Intake Total 880 400 Output Total 550 700 Balance 330 -300 Weight 70.505 kg Intake: IV 50 Oral 830 400 Output: Urine Catheter Amount 550 700 Other: Meal Dinner Percent of Meal Consumed 50% Feeding Ability Independent Urine Appearance Clear Uretheral (Smith) Clear Urine Color Light Farnaz Dark Yellow Light Farnaz Uretheral (Smith) Dark Yellow Urine Odor Strong Normal # Bowel Movements 1 Exam: General: Alert, Awake, No acute Distress Eyes/N/T: EOMI, Head/Neck: neck supple, CV: RRR, No murmurs, Pulm: Clear b/l, no wheezing/rhonchi/rales Abd: positive bowel sounds, distended, improved tenderness, no guarding Ext: no clubbing/cyanosis/edema Neuro: Alert, no focal deficits, moves all extremities, Skin: warm/dry OBJ DATA Labs CBC & Chem 7: 12/18/20 05:12 12/18/20 05:12 Labs: Abnormal Lab Results 12/18/20 12/18/20 12/17/20 05:12 05:12 05:14 RBC 3.94 L 4.03 L Hgb 12.4 L 12.7 L Hct 33.8 L 34.6 L MCHC 36.7 H 36.7 H [place] % (Auto) 12.2 H Lymph # (Auto) 1.40 L Sodium 131 L Chloride Glucose 132 H Calcium 8.1 L Phosphorus 2.2 L Direct Bilirubin 0.4 H GGT 244 H AST 50 H ALT 42 H Lactate Dehydrogenase 335 H Albumin 2.8 L Albumin/Globulin Ratio 0.8 L 12/17/20 05:14 RBC Hgb Hct MCHC [place] % (Auto) Lymph # (Auto) Sodium 132 L Chloride 94 L Glucose 135 H Calcium 8.3 L Phosphorus 2.2 L Direct Bilirubin 0.4 H GGT 264 H AST 60 H ALT 45 H Lactate Dehydrogenase 332 H Albumin 2.9 L Albumin/Globulin Ratio 0.9 L Meds: Medications Acetaminophen (Acetaminophen 500 Mg Tablet) 500 mg PO Q4HP PRN; Protocol PRN Reason: Per Pain Protocol Allopurinol (Allopurinol 100 Mg Tablet) 100 mg PO QDAY [facility] Last Admin: 12/18/20 07:59 Dose: 100 mg Documented by: Dextrose (Dextrose 50% 50 Ml Vial) 0 ml IV UD PRN PRN Reason: Hypoglycemia Diagnostic Test (Pha) (Accu-Chek 1 Each Strip) 1 each FS [facility] Last Admin: 12/18/20 21:59 Dose: 1 each Documented by: Finasteride (Finasteride 5 Mg Tablet) 5 mg PO QDAY [facility] Last Admin: 12/18/20 07:59 Dose: 5 mg Documented by: Folic Acid (Folic Acid 1 Mg Tablet) 1 mg PO DAILY [facility] Last Admin: 12/18/20 07:59 Dose: 1 mg Documented by: Gabapentin (Gabapentin 300 Mg Capsule) 300 mg PO QDAY [facility] Last Admin: 12/18/20 07:59 Dose: 300 mg Documented by: Glucose (Dextrose 31 Gm Oral.Susp) 15 gm PO PRN PRN PRN Reason: Hypoglycemia Heparin Sodium (Porcine) (Heparin 5,000 Unit/Ml Vial) 5,000 unit SQ Q12 [facility] Last Admin: 12/18/20 22:00 Dose: 5,000 unit Documented by: Insulin Glargine (Insulin Glargine, Human 1 Unit/0.01 Ml) 5 unit SQ [facility] Last Admin: 12/18/20 22:00 Dose: 5 units Documented by: Insulin Human Lispro (Insulin Lispro 1 Unit/0.01 Ml Unit) 0 unit SQ [facility]; Protocol Last Admin: 12/18/20 22:01 Dose: 2 unit Documented by: Lactulose (Lactulose 20 Gm/30 Ml Oral.Tonya) 10 gm PO DAILYP PRN PRN Reason: Constipation Losartan Potassium (Losartan 25 Mg Tablet) 25 mg PO QDAY [facility] Last Admin: 12/18/20 07:58 Dose: 25 mg Documented by: Metoclopramide HCl (Metoclopramide 10 Mg/2 Ml Vial) 10 mg IV Q6HP PRN PRN Reason: Nausea And Vomiting Naloxone HCl (Naloxone Hcl 0.4 Mg/Ml Vial) 0.4 mg IV Q10M PRN PRN Reason: Opiate Reversal Omeprazole (Omeprazole 20 Mg Capsule) 20 mg PO QDAY [facility] Last Admin: 12/18/20 07:58 Dose: 20 mg Documented by: Ondansetron HCl (Ondansetron 4 Mg/2 Ml Vial) 4 mg IV Q4HP PRN; Protocol PRN Reason: Nausea And Vomiting Last Admin: 12/17/20 10:47 Dose: 4 mg Documented by: Oxycodone HCl (Oxycodone Hcl 5 Mg Tablet) 5 mg PO Q4HP PRN; Protocol PRN Reason: Per Pain Protocol Last Admin: 12/18/20 22:01 Dose: 5 mg Documented by: Lipase-Protease- Amylase [Creon] 36, 000-114,000- 180,000 Unit Capsule, Delayed Release 3 dose PO AC [facility] Last Admin: 12/18/20 17:36 Dose: 3 dose Documented by: Senna (Sennosides 1 Tablet) 2 tab PO BID [facility] Last Admin: 12/18/20 22:02 Dose: Not Given Documented by: Simvastatin (Simvastatin 10 Mg Tablet) 10 mg PO DAILY [facility] Last Admin: 12/18/20 07:59 Dose: 10 mg Documented by: Sodium Chloride (0.9 % Sodium Chloride 10 Ml Syringe) 10 ml IV Q8 [facility] Last Admin: 12/19/20 04:38 Dose: 10 ml Documented by: Tamsulosin HCl (Tamsulosin 0.4 Mg Capsule) 0.8 mg PO QDAY [facility] Last Admin: 12/18/20 07:59 Dose: 0.8 mg Documented by: Thiamine HCl (Thiamine 100 Mg Tablet) 100 mg PO DAILY [facility] Last Admin: 12/18/20 07:59 Dose: 100 mg Documented by: A/P Narrative A/P Narrative: Assessment: #Acute pancreatitis: likely due to alcohol #Hematuria: likely from traumatic smith placement #Urinary retention w/BPH: requiring smith placement #Mild hyponatremia #Elevated LFTs: improving #DM (new dx): A1c 6.6 #HTN/HLD: #Alcohol use disorder #JERROD: resolved Plan -Essential home meds, higher dose of Flomax now -Lantus and SSI-low -Vitamin supplementation -Low fat regular diet, ccd -smith catheter, d/c in AM, if need to be reinserted than f/u with Urology -DM education, ssi. metformin at discharge vs life style changes then repeat Hgb A1C in a few months -Disposition: home with home health, possibly tomorrow if he continues to improve. 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
[2020-12-19] MEDS: INSULIN LISPRO 1 UNIT/0.01 ML UNIT SQ SCH ×3 (08:09→17:04)
[2020-12-19] MEDS: LIPASE PROTEASE AMYLASE PO SCH ×3 (08:09→17:09)
[2020-12-19] MEDS: HEPARIN 5,000 UNIT/ML VIAL SQ SCH (08:09)
[2020-12-19] MEDS: SIMVASTATIN 10 MG TABLET PO SCH (08:10)
[2020-12-19] MEDS: OMEPRAZOLE 20 MG CAPSULE PO SCH (08:10)
[2020-12-19] MEDS: TAMSULOSIN 0.4 MG CAPSULE PO SCH (08:10)
[2020-12-19] MEDS: FINASTERIDE 5 MG TABLET PO SCH (08:10)
[2020-12-19] MEDS: LOSARTAN 25 MG TABLET PO SCH (08:11)
[2020-12-19] MEDS: ALLOPURINOL 100 MG TABLET PO SCH (08:11)
[2020-12-19] MEDS: THIAMINE 100 MG TABLET PO SCH (08:11)
[2020-12-19] MEDS: oxyCODONE HCL 5 MG TABLET PO PRN ×3 (08:11→16:29)
[2020-12-19] MEDS: GABAPENTIN 300 MG CAPSULE PO SCH (08:11)
[2020-12-19] MEDS: FOLIC ACID 1 MG TABLET PO SCH (08:11)
[2020-12-19 08:14] LABS: ALT/SGPT 37 U/L (<40); AST/SGOT 41 U/L (<40); Albumin 3.1 gm/dL (3.2-5.2); Albumin/Globulin Ratio 0.9 (1.0-2.3); Alkaline Phosphatase 86 U/L (39-117); Bilirubin,Direct 0.3 mg/dL (<0.3); Bilirubin,Total 0.9 mg/dL (0.1-1.0); Blood Urea Nitrogen 11 mg/dL (8-23); Carbon Dioxide 24 mmol/L (22-30); Chloride 98 mmol/L (96-108); Globulin 3.6 gm/dL (2.2-3.7); Glomerular Filtration Rate 88; Glucose 146 mg/dL (70-105); Lactate Dehydrogenase 298 U/L (135-225); Phosphorous 2.2 mg/dL (2.5-4.5); Triglycerides 139 mg/dL (<150); Uric Acid 4.1 mg/dL (2.5-8.0)
[2020-12-19] MEDS: SENNOSIDES 1 TABLET PO SCH (09:44)
[2020-12-19] MEDS ORDERED: FLU VACC QS2021-22(6MOS UP)/PF 60 MCG/0.5 ML SYRINGE IM ONE (16:45)
== END 2020-12-19 17:45 | disposition home health service (06) | DRG 439 ==
LOC: ED 10:45 → ICU 12-13 22:27 → MEDSUR 12-14 10:39
PROVIDERS: ADMIT Internal Medicine; ATTEND Internal Medicine

== ENCOUNTER 2022-03-22 10:00 | Inpatient (IN) ==
[2022-03-22] MEDS ORDERED: IOPAMIDOL 100 ML BOTTLE IV ONE (10:01)
[2022-03-22] MEDS ORDERED: 0.9 % SODIUM CHLORIDE 1,000 ML IV ONE ×3 (10:22→13:11)
[2022-03-22] MEDS ORDERED: FOLIC ACID 1 MG TABLET PO ONE (10:22)
[2022-03-22] MEDS ORDERED: THIAMINE 100 MG in 0.9 % SODIUM CHLORIDE 50 ML IV ONE (10:22)
[2022-03-22] MEDS ORDERED: LORazepam 2 MG/ML VIAL IV ONE ×3 (10:22→15:22)
--- NOTE | 2022-03-22 10:25 | Emergency Department Note ---
Alcohol HPI <Quique Streeter DANNY Benitez - Last Filed: 03/22/22 18:01> General Chief Complaint: Abdominal Pain Stated Complaint: kidney issues Time Seen by Provider: 03/22/22 10:22 Source: patient Mode of arrival: ambulatory Limitations: no limitations History of Present Illness HPI Narrative: Narrative: Patient is a 66-year-old male who presents to the emergency department today with concern of shaking and patient is concerned that he may have withdrawals from alcohol. Patient has a long history of alcohol abuse and had stopped drinking for several months but unfortunately relapsed and started drinking about a month ago. His last drink was approximately 3 days ago. Patient report s that he drinks around 1/5 of hard alcohol a day. He has been having shaking, anxiety, nervousness, and mild nausea. He has not had any vomiting, abdominal pain, fevers, chills, chest pain, shortness of breath, or difficulty breathing. He denies any diarrhea, constipation, melena, or hematochezia. He has not had any headache, or weakness. Patient denies any bleeding or bruising. Related Data Home Medications Medication Instructions Recorded Confirmed dicyclomine 10 mg capsule 10 mg PO BID 03/11/20 12/02/21 gifyri-kwopnduh-bidcduu 3 cap PO AC 12/16/20 12/02/21 36,000-114,000-180,000 unit capsule,delay rel (Creon) gabapentin 300 mg capsule 300 mg PO QDAY 06/12/21 12/02/21 cholecalciferol (vitamin D3) 25 25 mcg PO QDAY 10/08/21 12/02/21 mcg (1,000 unit) capsule nortriptyline 10 mg capsule 10 mg PO HS 12/02/21 12/02/21 acyclovir 400 mg tablet 1 tab PO TID 12/24/21 12/24/21 Previous Rx's Medication Instructions Recorded acyclovir 400 mg tablet 400 mg PO TID PRN cold sores #15 09/04/21 tabs tadalafil 20 mg tablet 20 mg PO ONCE #20 tabs 11/07/21 allopurinol 100 mg tablet 100 mg PO QDAY #90 tabs 11/26/21 omeprazole 20 mg capsule,delayed 20 mg PO QDAY #90 caps 11/26/21 release pravastatin 20 mg tablet 20 mg PO QDAY #90 tabs 02/06/22 trazodone 50 mg tablet 50 mg PO QHS PRN sleep #90 tabs 02/06/22 losartan 25 mg tablet 25 mg PO QDAY #90 tabs 02/12/22 Allergies Allergy/AdvReac Type Severity Reaction Status Date / Time No Known Drug Allergies Allergy Unknown Verified 12/24/21 09:25 [NO KNOWN DRUG ALLERGIES] Review of Systems <DANNY Cheatham - Last Filed: 03/22/22 18:01> ROS ROS Narrative: Narrative: All systems ED: reviewed and negative except as stated. PFSH <DANNY Cheatham - Last Filed: 03/22/22 18:01> Narrative Patient History Narrative: Narrative: Medical/Surgical/Family History All Active Problems (Updated 03/22/22 @ 15:23 by DANNY Cheatham) Alcohol withdrawal (Acute) Dehydration (Acute) Frontal headache (Acute) Erectile dysfunction due to arterial disease (Acute) Medicare annual wellness visit, subsequent (Acute) Anxiety and depression (Chronic) Chronic depression (Chronic) Benign prostatic hyperplasia (Chronic) Enlarged prostate with lower urinary tract symptoms (Chronic) Vitamin D deficiency (Chronic 12/15/13) Relative polycythemia (Chronic) Essential hypertension (Chronic) Allergic rhinitis (Chronic) Periodontitis (Chronic) Gastroesophageal reflux disease (Chronic) Chronic pancreatitis (Chronic) Primary erectile dysfunction (Chronic) Herpes labialis (Chronic) Onychomycosis of toenail (Chronic) Candidiasis of skin (Chronic) Tubular adenoma of colon (Chronic) Hyperlipidemia (Chronic) Gilbert's syndrome (Chronic) Seasonal allergic rhinitis (Chronic) IBS (irritable bowel syndrome) (Chronic) Steatosis of liver (Chronic) History of tobacco use (Chronic) Hepatitis A (Chronic) Overweight (Chronic) Fatigue (Chronic) 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) Arthralgia (Chronic) Diabetes mellitus with nephropathy (Chronic) Hyperuricemia (Chronic) Elevated PSA (Acute) Recurrent cold sores (Acute) Conjunctivitis, left eye (Acute) Redness of eye, left (Acute) Fatigue (Acute) Cirrhosis (Chronic) Feeling unwell (Acute) Rhabdomyolysis (Acute) Alcohol abuse (Chronic) Benign prostatic hyperplasia with incomplete bladder emptying (Chronic) Insomnia (Chronic) Medical History Abdominal pain Allergic rhinitis Anxiety and depression Benign prostatic hyperplasia Candidiasis of skin Chronic depression Chronic pancreatitis Poor response to gabapentin Cirrhosis Cough Diabetes mellitus with nephropathy Elbow swelling Enlarged prostate with lower urinary tract symptoms Essential hypertension Fatigue Fatigue Feeling unwell Gastroesophageal reflux disease Gilbert's syndrome Hepatitis A Herpes labialis History of tobacco use Hyperlipidemia Hyperuricemia IBS (irritable bowel syndrome) Insomnia Knee pain Medicare annual wellness visit, initial Medicare annual wellness visit, subsequent Musculoskeletal pain Nausea Need for hepatitis C screening test Obesity On [facility] drug therapy Onychomycosis of toenail Overweight Periodontitis Primary erectile dysfunction Recurrent cold sores Redness of eye, left Relative polycythemia Screening for HIV (human immunodeficiency virus) Seasonal allergic rhinitis Steatosis of liver Swelling of knee Tinea corporis Tubular adenoma of colon Vitamin D deficiency (12/15/13) Surgical History H/O colonoscopy (01/11/09) H/O colonoscopy (12/29/16) History of cholecystectomy (~2013) Hx of tonsillectomy Family History Father Hypertension Pulmonary emphysema Mother Hypertension Social History Smoking Status: Former smoker Alcohol Intake Frequency: former alcohol drinker Substance Use: former substance user Exam <DANNY Cheatham - Last Filed: 03/22/22 18:01> Narrative Narrative: Narrative: General Limitations: no limitations General appearance: Present alert, anxious and in no apparent distress Eye Eye: Present normal appearance and PERRL; Absent scleral icterus ENT ENT: Present normal oropharynx and mucous membranes moist; Absent nasal congestion Neck Neck: Present normal inspection and full ROM; Absent lymphadenopathy Chest Chest: Present symmetric chest wall rise Respiratory Respiratory: Present normal lung sounds bilaterally; Absent respiratory distress, rales/crackles, wheezes or accessory muscle use Cardiovascular Cardiovascular: Present normal rhythm, tachycardia and normal heart sounds; Absent JVD Adbominal Abdominal: Present soft; Absent distention or tenderness Extremities Extremities: Present full ROM, normal capillary refill and other (Fine tremors to the hands with arms extended.); Absent tenderness, pedal edema, pretibial edema or cyanosis Neurological Neurological: Present alert, oriented X3 and CN II-XII intact Expanded Neurological Patient oriented to: Present person, place and time CRANIAL NERVES: EOM function (II, III, IV, ): Normal, facial sensation (V): Normal, facial palsy (VII): Normal, gag reflex (IX): Normal, spinal accessory function (XI): Normal and tongue deviation (XII): Normal Motor strength - LUE: 5/5 Motor strength - RUE: 5/5 Motor strength - LLE: 5/5 Motor strength - RLE: 5/5 Coma Scale Eye Opening: Spontaneous Coma Scale Motor Response: Obeys Commands Coma Scale Verbal Response: Oriented Coma Scale Total: 15 Psychiatric Psychiatric: Present anxious and other (No auditory or visual hallucinations.); Absent homicidal ideation or suicidal ideation Skin Skin: Present warm (WNL), dry and normal color <Raul Constantino DO - Last Filed: 03/22/22 19:07> Expanded Neurological Coma Scale Total: 15 Course <DANNY Cheatham - Last Filed: 03/22/22 18:01> Vital Signs Vital signs: Vital Signs Temperature 36.8 C 03/22/22 10:12 Pulse Rate 154 H 03/22/22 10:12 Respiratory Rate 18 03/22/22 10:12 Blood Pressure 159/82 03/22/22 10:12 Pulse Oximetry (%) 97 03/22/22 10:12 Oxygen Delivery Method Room Air 03/22/22 10:12 Temperature 36.8 C 03/22/22 10:12 Pulse Rate 84 03/22/22 18:10 Respiratory Rate 15 03/22/22 18:10 Blood Pressure 166/88 03/22/22 18:10 Pulse Oximetry (%) 95 03/22/22 18:10 Oxygen Delivery Method Room Air 03/22/22 17:51 <Raul Constantino DO - Last Filed: 03/22/22 19:07> Vital Signs Vital signs: Vital Signs Temperature 36.8 C 03/22/22 10:12 Pulse Rate 154 H 03/22/22 10:12 Respiratory Rate 18 03/22/22 10:12 Blood Pressure 159/82 03/22/22 10:12 Pulse Oximetry (%) 97 03/22/22 10:12 Oxygen Delivery Method Room Air 03/22/22 10:12 Temperature 36.8 C 03/22/22 10:12 Pulse Rate 84 03/22/22 18:10 Respiratory Rate 15 03/22/22 18:10 Blood Pressure 166/88 03/22/22 18:10 Pulse Oximetry (%) 95 03/22/22 18:10 Oxygen Delivery Method Room Air 03/22/22 17:51 [facility] <JUSTINA CheathamP - Last Filed: 03/22/22 18:01> [facility] Narrative Medical decision making narrative: Narrative: 66-year-old male presented the emergency department today with alcohol withdrawal symptoms. He had a heart rate of 150s and was given 1 L normal saline and 1 mg of Ativan upon arrival. Patient did show some improvement with his alcohol withdrawal symptoms and his pulse started to subside in the 120s. Patient is afebrile and blood pressure is 170/119. 1 view chest x-ray to my review shows a very wide mediastinum and patient is having pain in the epigastric area of his abdomen and reports some radiation towards his back. Lipase level currently pending at this time. Proceed with a CTA chest abdomen pelvis. I discussed this case with supervising physician, Dr. Bills today. Patient was ordered a second liter of normal saline for hydration as his lactic acid was high at 8.7. We did hydrate the patient with 2 L of normal saline and repeat lactic acid that showed reduction of lactic acid by about half. Upon reevaluation after second liter of normal saline patient's tachycardia continued to improve and he was feeling much better. His urine dipstick was negative for sign of infection. His specific gravity is 1.30 indicating dehydration. He was ordered a 3rd L of normal saline for hydration. His pulse decreased and he was no longer tachycardic anymore. His repeat lactic acid showed significant improvement and has decreased in half. Ordered a dedicated lactic acid rather than [id number] to confirm testing and this came back at 3.6. Suspect his lactic acid likely being elevated due to the dehydration. Patient's white count today was minimally elevated at 11.7 with no anemia and no significant shift. His chest x-ray today is negative for any infiltrate or sign of pneumonia. His CTA chest abdomen pelvis did not show any sign of pancreatitis or aortic aneurysm or dissection. He has severe fatty liver ch anges with AST of 85, ALT 37, and bilirubin of 1.1. His lipase today is normal and pancreas on the CT scan is read as normal. Patient does not have any diverticulitis seen on CT scan there is a 7 cm region of panniculitis in the central mesenteric fat has decreased from 2019. Patient's troponin today is negative. After IV fluids and lorazepam patient's EKG is normal sinus rhythm with a rate of 94. He is not having any chest pain or shortness of breath. This patient appears to be showing signs of alcohol withdrawal syndrome with dehydration. He was given folic acid orally and thiamine IV today in the emergency department. Today we did repeat another 1 mg dose of IV lorazepam today was a total of 3 mg given here in the emergency department while patient is here. Given the patient's alcohol withdrawal symptoms feel that hospital admission would be appropriate with this patient. Currently there is a bed at [facility] and is able to speak with Dr. Bae who is on today for hospitalist. Dr. Bae graciously accepts patient for [facility]. Lab Data Lab results reviewed: Yes I reviewed the patient's lab results. 03/22/22 10:34 Labs: Lab Results 03/22/22 03/22/22 03/22/22 Range/Units 10:34 10:34 10:34 WBC 11.7 H (4.5-11.0) K/mcL RBC 4.92 (4.63-6.08) M/mcL Hgb 15.8 (13.7-17.5) g/dL Hct 43.4 (40.1-51.0) % POC Hct (41-55) MCV 88.2 (80.0-100.0) fL MCH 32.1 (26.0-34.0) pg MCHC 36.4 H (31.0-36.0) g/dL RDW 14.9 H (11.5-14.5) % Plt Count 180 (140-440) K/mcL MPV 9.5 (8.8-12.5) fL Immature Gran % (Auto) 0.3 (0.0-0.5) % Neut % (Auto) 84.8 H (38.0-78.0) % Lymph % (Auto) 10.8 L (15.5-49.0) % [place] % (Auto) 3.6 (1.0-12.0) % Eos % (Auto) 0.2 (0.0-7.0) % Baso % (Auto) 0.3 (0.0-2.0) % Lymph # (Auto) 1.26 L (1.50-4.80) K/mcL [place] # (Auto) 0.42 (0.10-0.90) K/mcL Eos # (Auto) 0.02 (0.00-0.70) K/mcL Baso # (Auto) 0.03 (0.00-0.30) K/mcL Immature Gran # 0.04 (0.00-0.05) K/mcl Absolute Neutrophils 9.93 H (1.80-8.00) K/mcL PT 14.8 H (11.9-14.5) sec INR 1.1 (0.9-1.1) POC VBG pH (7.32-7.42) POC VBG pCO2 at Temp (41-51) POC VBG pO2 (25-40) POC VBG HCO3 (24-28) POC VBG Total CO2 (25-29) POC Venous O2 Sat (40-70) POC VBG Base Excess (-2-2) VBG Lactic Acid (0.5-2) POC Sodium (133-145) POC Potassium (3.3-5.1) POC Chloride (96-108) POC Total CO2 (22-30) POC BUN (6-20) POC Creatinine (0.6-1.2) POC Glucose (70-105) POC WB Ioniz Calcium (1.16-1.32) Phosphorus (2.5-4.5) mg/dL Magnesium (1.6-2.5) mg/dL Total Bilirubin (0.1-1.0) mg/dL Direct Bilirubin (<0.3) mg/dL AST (<40) U/L ALT (<40) U/L Alkaline Phosphatase (39-117) U/L Troponin T (<0.03) ng/mL Total Protein (5.9-8.4) gm/dL Albumin (3.2-5.2) gm/dL Globulin (2.2-3.7) gm/dL Lipase (7-60) U/L Urine Color Urine Appearance (Clear) Urine pH (5.0-9.0) Ur Specific [place]gan (1.000-1.035) Urine Protein (Negative) mg/dL Urine Glucose (UA) (Negative) mg/dL Urine Ketones (Negative) mg/dL Urine Occult Blood (Negative) tonie/mcL Urine Nitrate (Negative) Urine Bilirubin (Negative) mg/dL Urine Urobilinogen mg/dL Ur Leukocyte Esterase (Negative) /uL Urine RBC (0-3) /hpf Urine WBC (0-4) /hpf Ur Squamous Epith Cells (0-4) /hpf Urine Bacteria (0) /hpf Hyaline Casts (0-2) /lph Granular Casts (0-0) /lph Urine Mucus (None) /hpf Ur Culture Indicated? Salicylates < 0.3 mg/dL Acetaminophen < 5.0 ug/mL Ethyl Alcohol mg/dL mg/dL Ethyl Alcohol g/dL (<0.010) gm/dL 03/22/22 03/22/22 03/22/22 Range/Units 10:34 10:35 10:35 WBC (4.5-11.0) K/mcL RBC (4.63-6.08) M/mcL Hgb (13.7-17.5) g/dL Hct (40.1-51.0) % POC Hct (41-55) MCV (80.0-100.0) fL MCH (26.0-34.0) pg MCHC (31.0-36.0) g/dL RDW (11.5-14.5) % Plt Count (140-440) K/mcL MPV (8.8-12.5) fL Immature Gran % (Auto) (0.0-0.5) % Neut % (Auto) (38.0-78.0) % Lymph % (Auto) (15.5-49.0) % [place] % (Auto) (1.0-12.0) % Eos % (Auto) (0.0-7.0) % Baso % (Auto) (0.0-2.0) % Lymph # (Auto) (1.50-4.80) K/mcL [place] # (Auto) (0.10-0.90) K/mcL Eos # (Auto) (0.00-0.70) K/mcL Baso # (Auto) (0.00-0.30) K/mcL Immature Gran # (0.00-0.05) K/mcl Absolute Neutrophils (1.80-8.00) K/mcL PT (11.9-14.5) sec INR (0.9-1.1) POC VBG pH (7.32-7.42) POC VBG pCO2 at Temp (41-51) POC VBG pO2 (25-40) POC VBG HCO3 (24-28) POC VBG Total CO2 (25-29) POC Venous O2 Sat (40-70) POC VBG Base Excess (-2-2) VBG Lactic Acid (0.5-2) POC Sodium (133-145) POC Potassium (3.3-5.1) POC Chloride (96-108) POC Total CO2 (22-30) POC BUN (6-20) POC Creatinine (0.6-1.2) POC Glucose (70-105) POC WB Ioniz Calcium (1.16-1.32) Phosphorus 3.1 (2.5-4.5) mg/dL Magnesium 1.4 L (1.6-2.5) mg/dL Total Bilirubin 1.1 H (0.1-1.0) mg/dL Direct Bilirubin 0.3 H (<0.3) mg/dL AST 85 H (<40) U/L ALT 37 (<40) U/L Alkaline Phosphatase 107 (39-117) U/L Troponin T < 0.01 (<0.03) ng/mL Total Protein 7.6 (5.9-8.4) gm/dL Albumin 4.2 (3.2-5.2) gm/dL Globulin 3.4 (2.2-3.7) gm/dL Lipase 39 (7-60) U/L Urine Color Urine Appearance (Clear) Urine pH (5.0-9.0) Ur Specific [place] (1.000-1.035) Urine Protein (Negative) mg/dL Urine Glucose (UA) (Negative) mg/dL Urine Ketones (Negative) mg/dL Urine Occult Blood (Negative) tonie/mcL Urine Nitrate (Negative) Urine Bilirubin (Negative) mg/dL Urine Urobilinogen mg/dL Ur Leukocyte Esterase (Negative) /uL Urine RBC (0-3) /hpf Urine WBC (0-4) /hpf Ur Squamous Epith Cells (0-4) /hpf Urine Bacteria (0) /hpf Hyaline Casts (0-2) /lph Granular Casts (0-0) /lph Urine Mucus (None) /hpf Ur Culture Indicated? Salicylates mg/dL Acetaminophen ug/mL Ethyl Alcohol mg/dL mg/dL Ethyl Alcohol g/dL (<0.010) gm/dL 03/22/22 03/22/22 03/22/22 Range/Units 10:36 10:36 10:39 WBC (4.5-11.0) K/mcL RBC (4.63-6.08) M/mcL Hgb (13.7-17.5) g/dL Hct (40.1-51.0) % POC Hct 45.0 (41-55) MCV (80.0-100.0) fL MCH (26.0-34.0) pg MCHC (31.0-36.0) g/dL RDW (11.5-14.5) % Plt Count (140-440) K/mcL MPV (8.8-12.5) fL Immature Gran % (Auto) (0.0-0.5) % Neut % (Auto) (38.0-78.0) % Lymph % (Auto) (15.5-49.0) % [place] % (Auto) (1.0-12.0) % Eos % (Auto) (0.0-7.0) % Baso % (Auto) (0.0-2.0) % Lymph # (Auto) (1.50-4.80) K/mcL [place] # (Auto) (0.10-0.90) K/mcL Eos # (Auto) (0.00-0.70) K/mcL Baso # (Auto) (0.00-0.30) K/mcL Immature Gran # (0.00-0.05) K/mcl Absolute Neutrophils (1.80-8.00) K/mcL PT (11.9-14.5) sec INR (0.9-1.1) POC VBG pH 7.42 (7.32-7.42) POC VBG pCO2 at Temp 28.5 L (41-51) POC VBG pO2 57 H (25-40) POC VBG HCO3 18.6 L (24-28) POC VBG Total CO2 19.0 L (25-29) POC Venous O2 Sat 90.0 H (40-70) POC VBG Base Excess -6.0 L (-2-2) VBG Lactic Acid 8.7 H* (0.5-2) POC Sodium 136 (133-145) POC Potassium 4.1 (3.3-5.1) POC Chloride 100 (96-108) POC Total CO2 19.0 L (22-30) POC BUN 16 (6-20) POC Creatinine 1.4 H (0.6-1.2) POC Glucose 219 H (70-105) POC WB Ioniz Calcium 1.00 L (1.16-1.32) Phosphorus (2.5-4.5) mg/dL Magnesium (1.6-2.5) mg/dL Total Bilirubin (0.1-1.0) mg/dL Direct Bilirubin (<0.3) mg/dL AST (<40) U/L ALT (<40) U/L Alkaline Phosphatase (39-117) U/L Troponin T (<0.03) ng/mL Total Protein (5.9-8.4) gm/dL Albumin (3.2-5.2) gm/dL Globulin (2.2-3.7) gm/dL Lipase (7-60) U/L Urine Color Urine Appearance (Clear) Urine pH (5.0-9.0) Ur Specific [place]gan (1.000-1.035) Urine Protein (Negative) mg/dL Urine Glucose (UA) (Negative) mg/dL Urine Ketones (Negative) mg/dL Urine Occult Blood (Negative) tonie/mcL Urine Nitrate (Negative) Urine Bilirubin (Negative) mg/dL Urine Urobilinogen mg/dL Ur Leukocyte Esterase (Negative) /uL Urine RBC (0-3) /hpf Urine WBC (0-4) /hpf Ur Squamous Epith Cells (0-4) /hpf Urine Bacteria (0) /hpf Hyaline Casts (0-2) /lph Granular Casts (0-0) /lph Urine Mucus (None) /hpf Ur Culture Indicated? Salicylates mg/dL Acetaminophen ug/mL Ethyl Alcohol mg/dL < 10.0 mg/dL Ethyl Alcohol g/dL < 0.010 (<0.010) gm/dL 03/22/22 03/22/22 03/22/22 Range/Units 10:40 12:29 13:55 WBC (4.5-11.0) K/mcL RBC (4.63-6.08) M/mcL Hgb (13.7-17.5) g/dL Hct (40.1-51.0) % POC Hct (41-55) MCV (80.0-100.0) fL MCH (26.0-34.0) pg MCHC (31.0-36.0) g/dL RDW (11.5-14.5) % Plt Count (140-440) K/mcL MPV (8.8-12.5) fL Immature Gran % (Auto) (0.0-0.5) % Neut % (Auto) (38.0-78.0) % Lymph % (Auto) (15.5-49.0) % [place] % (Auto) (1.0-12.0) % Eos % (Auto) (0.0-7.0) % Baso % (Auto) (0.0-2.0) % Lymph # (Auto) (1.50-4.80) K/mcL [place] # (Auto) (0.10-0.90) K/mcL Eos # (Auto) (0.00-0.70) K/mcL Baso # (Auto) (0.00-0.30) K/mcL Immature Gran # (0.00-0.05) K/mcl Absolute Neutrophils (1.80-8.00) K/mcL PT (11.9-14.5) sec INR (0.9-1.1) POC VBG pH 7.41 (7.32-7.42) POC VBG pCO2 at Temp 36.7 L (41-51) POC VBG pO2 22 L (25-40) POC VBG HCO3 23.2 L (24-28) POC VBG Total CO2 24.0 L (25-29) POC Venous O2 Sat 37.0 L (40-70) POC VBG Base Excess -1.0 (-2-2) VBG Lactic Acid 4.1 H* 3.6 H (0.5-2) POC Sodium (133-145) POC Potassium (3.3-5.1) POC Chloride (96-108) POC Total CO2 (22-30) POC BUN (6-20) POC Creatinine (0.6-1.2) POC Glucose (70-105) POC WB Ioniz Calcium (1.16-1.32) Phosphorus (2.5-4.5) mg/dL Magnesium (1.6-2.5) mg/dL Total Bilirubin (0.1-1.0) mg/dL Direct Bilirubin (<0.3) mg/dL AST (<40) U/L ALT (<40) U/L Alkaline Phosphatase (39-117) U/L Troponin T (<0.03) ng/mL Total Protein (5.9-8.4) gm/dL Albumin (3.2-5.2) gm/dL Globulin (2.2-3.7) gm/dL Lipase (7-60) U/L Urine Color Yellow Urine Appearance Clear (Clear) Urine pH 5.5 (5.0-9.0) Ur Specific [place]gan >= 1.030 (1.000-1.035) Urine Protein 100 A (Negative) mg/dL Urine Glucose (UA) Negative (Negative) mg/dL Urine Ketones 15 A (Negative) mg/dL Urine Occult Blood Trace-intact A (Negative) tonie/mcL Urine Nitrate Negative (Negative) Urine Bilirubin Negative (Negative) mg/dL Urine Urobilinogen Normal mg/dL Ur Leukocyte Esterase Negative (Negative) /uL Urine RBC 1 (0-3) /hpf Urine WBC 6 H (0-4) /hpf Ur Squamous Epith Cells 1 (0-4) /hpf Urine Bacteria None (0) /hpf Hyaline Casts 9 H (0-2) /lph Granular Casts 32 H (0-0) /lph Urine Mucus Mod A (None) /hpf Ur Culture Indicated? No Salicylates mg/dL Acetaminophen ug/mL Ethyl Alcohol mg/dL mg/dL Ethyl Alcohol g/dL (<0.010) gm/dL 03/22/22 Range/Units 15:41 WBC (4.5-11.0) K/mcL RBC (4.63-6.08) M/mcL Hgb (13.7-17.5) g/dL Hct (40.1-51.0) % POC Hct (41-55) MCV (80.0-100.0) fL MCH (26.0-34.0) pg MCHC (31.0-36.0) g/dL RDW (11.5-14.5) % Plt Count (140-440) K/mcL MPV (8.8-12.5) fL Immature Gran % (Auto) (0.0-0.5) % Neut % (Auto) (38.0-78.0) % Lymph % (Auto) (15.5-49.0) % [place] % (Auto) (1.0-12.0) % Eos % (Auto) (0.0-7.0) % Baso % (Auto) (0.0-2.0) % Lymph # (Auto) (1.50-4.80) K/mcL [place] # (Auto) (0.10-0.90) K/mcL Eos # (Auto) (0.00-0.70) K/mcL Baso # (Auto) (0.00-0.30) K/mcL Immature Gran # (0.00-0.05) K/mcl Absolute Neutrophils (1.80-8.00) K/mcL PT (11.9-14.5) sec INR (0.9-1.1) POC VBG pH (7.32-7.42) POC VBG pCO2 at Temp (41-51) POC VBG pO2 (25-40) POC VBG HCO3 (24-28) POC VBG Total CO2 (25-29) POC Venous O2 Sat (40-70) POC VBG Base Excess (-2-2) VBG Lactic Acid 4.3 H* (0.5-2) POC Sodium (133-145) POC Potassium (3.3-5.1) POC Chloride (96-108) POC Total CO2 (22-30) POC BUN (6-20) POC Creatinine (0.6-1.2) POC Glucose (70-105) POC WB Ioniz Calcium (1.16-1.32) Phosphorus (2.5-4.5) mg/dL Magnesium (1.6-2.5) mg/dL Total Bilirubin (0.1-1.0) mg/dL Direct Bilirubin (<0.3) mg/dL AST (<40) U/L ALT (<40) U/L Alkaline Phosphatase (39-117) U/L Troponin T (<0.03) ng/mL Total Protein (5.9-8.4) gm/dL Albumin (3.2-5.2) gm/dL Globulin (2.2-3.7) gm/dL Lipase (7-60) U/L Urine Color Urine Appearance (Clear) Urine pH (5.0-9.0) Ur Specific [place] (1.000-1.035) Urine Protein (Negative) mg/dL Urine Glucose (UA) (Negative) mg/dL Urine Ketones (Negative) mg/dL Urine Occult Blood (Negative) tonie/mcL Urine Nitrate (Negative) Urine Bilirubin (Negative) mg/dL Urine Urobilinogen mg/dL Ur Leukocyte Esterase (Negative) /uL Urine RBC (0-3) /hpf Urine WBC (0-4) /hpf Ur Squamous Epith Cells (0-4) /hpf Urine Bacteria (0) /hpf Hyaline Casts (0-2) /lph Granular Casts (0-0) /lph Urine Mucus (None) /hpf Ur Culture Indicated? Salicylates mg/dL Acetaminophen ug/mL Ethyl Alcohol mg/dL mg/dL Ethyl Alcohol g/dL (<0.010) gm/dL Radiology Data Radiology results reviewed: Yes I reviewed the patient's radiology results. Radiology results narrative: Ordering Physician:Quique Benitez Date of Service:03/22/22 Procedure(s):XR chest 1V portable CLINICAL INFORMATION: Chest pain COMPARISON: None. TECHNIQUE: Portable FINDINGS: Cardiomediastinal silhouette is accentuated right rotation and lordotic positioning. It is within normal limits. Pulmonary vessels are normal. Minor bibasilar atelectasis noted. No effusions. IMPRESSION: Normal chest. Interpreted and Authenticated by: Edi Simpson 03/22/22 ------ ---- Ordering Physician:Quique Benitez Date of Service:03/22/22 Procedure(s):CT angio chest abdomen pelvis CLINICAL INFORMATION: Abdominal and chest pain. Wide mediastinum-evaluate for aortic dissection or aneurysm COMPARISON: None. TECHNIQUE: Enteric contrast was utilized. 80 cc of Isovue-[id number] were injected intravenously, and 20 and 70 seconds later, 0.625 mm helical slices were obtained from the lung apices through the subtrochanteric regions of the femurs. Following reconstruction, 2.5 mm sagittal, coronal and axial reformatted images were processed and reviewed at multiple windows and levels. 7 mm MIP reconstructions were obtained through the lungs to optimize nodule detection.The exam was performed using radiation dose optimization techniques including, but not limited to, automated exposure control, adjustment of the mA and/or kV according to patient size and use of iterative reconstruction technique. FINDINGS: Pulmonary parenchymal windows show the lungs are clear. Pleural spaces are unremarkable-no effusions. Mediastinal windows show the heart is grossly normal in size and configuration. No significant plaque in the coronary arteries. The pulmonary arteries are normal diameter well-opacified without evidence of embolus. Thoracic aorta is also normal diameter and well-opacified. There is no adenopathy in the mediastinal, hilar or axillary regions. Esophagus is grossly normal. The thyroid is unremarkable. Abdominal images show marked diffuse fatty change within the liver which has progressed since 2019. No focal hepatic lesions. Gallbladder is surgically absent. Intrahepatic and extrahepatic bile ducts are normal caliber CBD is 5 mm. Both kidneys, adrenal glands, spleen, pancreas and aorta, including aortic branches, are normal in size, configuration and attenuation without focal lesion. There is no free air, free fluid or adenopathy. Pelvic images show normal urinary bladder. Prostate is mildly enlarged with a transverse dimension 5 cm. It is unchanged There are multiple sigmoid diverticuli as previously but no evidence of diverticulitis. The remainder of the large bowel, inferior pericecal appendix, small bowel and stomach are normal. There is a 7 cm focus of panniculitis in the central mesenteric fat is decreased slightly from previous CT. Small periumbilical hernia contains only mesenteric fat is stable. Bone windows show no osseous abnormality throughout the chest, abdomen or pelvis. IMPRESSION: 1. No evidence of aortic aneurysm or dissection: The thoracic and abdominal aorta and all branches are normal in contour and caliber without abnormality. 2. Severe fatty change within the liver. Please correlate with LFTs to evaluate for hepatocellular ascites. This has progressed 3. Sigmoid diverticulosis, but no evidence of diverticulitis. 4. 7 cm region of panniculitis and the central mesenteric fat-decreased from 2020. 5. Mild prostate enlargement Interpreted and Authenticated by: Edi Simpson 03/22/22 EKG Data EKG #1: EKG attestation: Yes I reviewed and interpreted this EKG. and Yes There are no EKG findings of acute coronary syndrome EKG shows normal: sinus rhythm Rate: tachycardia <Raul Constantino DO - Last Filed: 03/22/22 19:07> Lab Data Labs: Lab Results 03/22/22 03/22/22 03/22/22 Range/Units 10:34 10:34 10:34 WBC 11.7 H (4.5-11.0) K/mcL RBC 4.92 (4.63-6.08) M/mcL Hgb 15.8 (13.7-17.5) g/dL Hct 43.4 (40.1-51.0) % POC Hct (41-55) MCV 88.2 (80.0-100.0) fL MCH 32.1 (26.0-34.0) pg MCHC 36.4 H (31.0-36.0) g/dL RDW 14.9 H (11.5-14.5) % Plt Count 180 (140-440) K/mcL MPV 9.5 (8.8-12.5) fL Immature Gran % (Auto) 0.3 (0.0-0.5) % Neut % (Auto) 84.8 H (38.0-78.0) % Lymph % (Auto) 10.8 L (15.5-49.0) % [place] % (Auto) 3.6 (1.0-12.0) % Eos % (Auto) 0.2 (0.0-7.0) % Baso % (Auto) 0.3 (0.0-2.0) % Lymph # (Auto) 1.26 L (1.50-4.80) K/mcL [place] # (Auto) 0.42 (0.10-0.90) K/mcL Eos # (Auto) 0.02 (0.00-0.70) K/mcL Baso # (Auto) 0.03 (0.00-0.30) K/mcL Immature Gran # 0.04 (0.00-0.05) K/mcl Absolute Neutrophils 9.93 H (1.80-8.00) K/mcL PT 14.8 H (11.9-14.5) sec INR 1.1 (0.9-1.1) POC VBG pH (7.32-7.42) POC VBG pCO2 at Temp (41-51) POC VBG pO2 (25-40) POC VBG HCO3 (24-28) POC VBG Total CO2 (25-29) POC Venous O2 Sat (40-70) POC VBG Base Excess (-2-2) VBG Lactic Acid (0.5-2) POC Sodium (133-145) POC Potassium (3.3-5.1) POC Chloride (96-108) POC Total CO2 (22-30) POC BUN (6-20) POC Creatinine (0.6-1.2) POC Glucose (70-105) POC WB Ioniz Calcium (1.16-1.32) Phosphorus (2.5-4.5) mg/dL Magnesium (1.6-2.5) mg/dL Total Bilirubin (0.1-1.0) mg/dL Direct Bilirubin (<0.3) mg/dL AST (<40) U/L ALT (<40) U/L Alkaline Phosphatase (39-117) U/L Troponin T (<0.03) ng/mL Total Protein (5.9-8.4) gm/dL Albumin (3.2-5.2) gm/dL Globulin (2.2-3.7) gm/dL Lipase (7-60) U/L Urine Color Urine Appearance (Clear) Urine pH (5.0-9.0) Ur Specific [place] (1.000-1.035) Urine Protein (Negative) mg/dL Urine Glucose (UA) (Negative) mg/dL Urine Ketones (Negative) mg/dL Urine Occult Blood (Negative) tonie/mcL Urine Nitrate (Negative) Urine Bilirubin (Negative) mg/dL Urine Urobilinogen mg/dL Ur Leukocyte Esterase (Negative) /uL Urine RBC (0-3) /hpf Urine WBC (0-4) /hpf Ur Squamous Epith Cells (0-4) /hpf Urine Bacteria (0) /hpf Hyaline Casts (0-2) /lph Granular Casts (0-0) /lph Urine Mucus (None) /hpf Ur Culture Indicated? Salicylates < 0.3 mg/dL Acetaminophen < 5.0 ug/mL Ethyl Alcohol mg/dL mg/dL Ethyl Alcohol g/dL (<0.010) gm/dL 03/22/22 03/22/22 03/22/22 Range/Units 10:34 10:35 10:35 WBC (4.5-11.0) K/mcL RBC (4.63-6.08) M/mcL Hgb (13.7-17.5) g/dL Hct (40.1-51.0) % POC Hct (41-55) MCV (80.0-100.0) fL MCH (26.0-34.0) pg MCHC (31.0-36.0) g/dL RDW (11.5-14.5) % Plt Count (140-440) K/mcL MPV (8.8-12.5) fL Immature Gran % (Auto) (0.0-0.5) % Neut % (Auto) (38.0-78.0) % Lymph % (Auto) (15.5-49.0) % [place] % (Auto) (1.0-12.0) % Eos % (Auto) (0.0-7.0) % Baso % (Auto) (0.0-2.0) % Lymph # (Auto) (1.50-4.80) K/mcL [place] # (Auto) (0.10-0.90) K/mcL Eos # (Auto) (0.00-0.70) K/mcL Baso # (Auto) (0.00-0.30) K/mcL Immature Gran # (0.00-0.05) K/mcl Absolute Neutrophils (1.80-8.00) K/mcL PT (11.9-14.5) sec INR (0.9-1.1) POC VBG pH (7.32-7.42) POC VBG pCO2 at Temp (41-51) POC VBG pO2 (25-40) POC VBG HCO3 (24-28) POC VBG Total CO2 (25-29) POC Venous O2 Sat (40-70) POC VBG Base Excess (-2-2) VBG Lactic Acid (0.5-2) POC Sodium (133-145) POC Potassium (3.3-5.1) POC Chloride (96-108) POC Total CO2 (22-30) POC BUN (6-20) POC Creatinine (0.6-1.2) POC Glucose (70-105) POC WB Ioniz Calcium (1.16-1.32) Phosphorus 3.1 (2.5-4.5) mg/dL Magnesium 1.4 L (1.6-2.5) mg/dL Total Bilirubin 1.1 H (0.1-1.0) mg/dL Direct Bilirubin 0.3 H (<0.3) mg/dL AST 85 H (<40) U/L ALT 37 (<40) U/L Alkaline Phosphatase 107 (39-117) U/L Troponin T < 0.01 (<0.03) ng/mL Total Protein 7.6 (5.9-8.4) gm/dL Albumin 4.2 (3.2-5.2) gm/dL Globulin 3.4 (2.2-3.7) gm/dL Lipase 39 (7-60) U/L Urine Color Urine Appearance (Clear) Urine pH (5.0-9.0) Ur Specific [place] (1.000-1.035) Urine Protein (Negative) mg/dL Urine Glucose (UA) (Negative) mg/dL Urine Ketones (Negative) mg/dL Urine Occult Blood (Negative) tonie/mcL Urine Nitrate (Negative) Urine Bilirubin (Negative) mg/dL Urine Urobilinogen mg/dL Ur Leukocyte Esterase (Negative) /uL Urine RBC (0-3) /hpf Urine WBC (0-4) /hpf Ur Squamous Epith Cells (0-4) /hpf Urine Bacteria (0) /hpf Hyaline Casts (0-2) /lph Granular Casts (0-0) /lph Urine Mucus (None) /hpf Ur Culture Indicated? Salicylates mg/dL Acetaminophen ug/mL Ethyl Alcohol mg/dL mg/dL Ethyl Alcohol g/dL (<0.010) gm/dL 03/22/22 03/22/22 03/22/22 Range/Units 10:36 10:36 10:39 WBC (4.5-11.0) K/mcL RBC (4.63-6.08) M/mcL Hgb (13.7-17.5) g/dL Hct (40.1-51.0) % POC Hct 45.0 (41-55) MCV (80.0-100.0) fL MCH (26.0-34.0) pg MCHC (31.0-36.0) g/dL RDW (11.5-14.5) % Plt Count (140-440) K/mcL MPV (8.8-12.5) fL Immature Gran % (Auto) (0.0-0.5) % Neut % (Auto) (38.0-78.0) % Lymph % (Auto) (15.5-49.0) % [place] % (Auto) (1.0-12.0) % Eos % (Auto) (0.0-7.0) % Baso % (Auto) (0.0-2.0) % Lymph # (Auto) (1.50-4.80) K/mcL [place] # (Auto) (0.10-0.90) K/mcL Eos # (Auto) (0.00-0.70) K/mcL Baso # (Auto) (0.00-0.30) K/mcL Immature Gran # (0.00-0.05) K/mcl Absolute Neutrophils (1.80-8.00) K/mcL PT (11.9-14.5) sec INR (0.9-1.1) POC VBG pH 7.42 (7.32-7.42) POC VBG pCO2 at Temp 28.5 L (41-51) POC VBG pO2 57 H (25-40) POC VBG HCO3 18.6 L (24-28) POC VBG Total CO2 19.0 L (25-29) POC Venous O2 Sat 90.0 H (40-70) POC VBG Base Excess -6.0 L (-2-2) VBG Lactic Acid 8.7 H* (0.5-2) POC Sodium 136 (133-145) POC Potassium 4.1 (3.3-5.1) POC Chloride 100 (96-108) POC Total CO2 19.0 L (22-30) POC BUN 16 (6-20) POC Creatinine 1.4 H (0.6-1.2) POC Glucose 219 H (70-105) POC WB Ioniz Calcium 1.00 L (1.16-1.32) Phosphorus (2.5-4.5) mg/dL Magnesium (1.6-2.5) mg/dL Total Bilirubin (0.1-1.0) mg/dL Direct Bilirubin (<0.3) mg/dL AST (<40) U/L ALT (<40) U/L Alkaline Phosphatase (39-117) U/L Troponin T (<0.03) ng/mL Total Protein (5.9-8.4) gm/dL Albumin (3.2-5.2) gm/dL Globulin (2.2-3.7) gm/dL Lipase (7-60) U/L Urine Color Urine Appearance (Clear) Urine pH (5.0-9.0) Ur Specific [place] (1.000-1.035) Urine Protein (Negative) mg/dL Urine Glucose (UA) (Negative) mg/dL Urine Ketones (Negative) mg/dL Urine Occult Blood (Negative) tonie/mcL Urine Nitrate (Negative) Urine Bilirubin (Negative) mg/dL Urine Urobilinogen mg/dL Ur Leukocyte Esterase (Negative) /uL Urine RBC (0-3) /hpf Urine WBC (0-4) /hpf Ur Squamous Epith Cells (0-4) /hpf Urine Bacteria (0) /hpf Hyaline Casts (0-2) /lph Granular Casts (0-0) /lph Urine Mucus (None) /hpf Ur Culture Indicated? Salicylates mg/dL Acetaminophen ug/mL Ethyl Alcohol mg/dL < 10.0 mg/dL Ethyl Alcohol g/dL < 0.010 (<0.010) gm/dL 03/22/22 03/22/22 03/22/22 Range/Units 10:40 12:29 13:55 WBC (4.5-11.0) K/mcL RBC (4.63-6.08) M/mcL Hgb (13.7-17.5) g/dL Hct (40.1-51.0) % POC Hct (41-55) MCV (80.0-100.0) fL MCH (26.0-34.0) pg MCHC (31.0-36.0) g/dL RDW (11.5-14.5) % Plt Count (140-440) K/mcL MPV (8.8-12.5) fL Immature Gran % (Auto) (0.0-0.5) % Neut % (Auto) (38.0-78.0) % Lymph % (Auto) (15.5-49.0) % [place] % (Auto) (1.0-12.0) % Eos % (Auto) (0.0-7.0) % Baso % (Auto) (0.0-2.0) % Lymph # (Auto) (1.50-4.80) K/mcL [place] # (Auto) (0.10-0.90) K/mcL Eos # (Auto) (0.00-0.70) K/mcL Baso # (Auto) (0.00-0.30) K/mcL Immature Gran # (0.00-0.05) K/mcl Absolute Neutrophils (1.80-8.00) K/mcL PT (11.9-14.5) sec INR (0.9-1.1) POC VBG pH 7.41 (7.32-7.42) POC VBG pCO2 at Temp 36.7 L (41-51) POC VBG pO2 22 L (25-40) POC VBG HCO3 23.2 L (24-28) POC VBG Total CO2 24.0 L (25-29) POC Venous O2 Sat 37.0 L (40-70) POC VBG Base Excess -1.0 (-2-2) VBG Lactic Acid 4.1 H* 3.6 H (0.5-2) POC Sodium (133-145) POC Potassium (3.3-5.1) POC Chloride (96-108) POC Total CO2 (22-30) POC BUN (6-20) POC Creatinine (0.6-1.2) POC Glucose (70-105) POC WB Ioniz Calcium (1.16-1.32) Phosphorus (2.5-4.5) mg/dL Magnesium (1.6-2.5) mg/dL Total Bilirubin (0.1-1.0) mg/dL Direct Bilirubin (<0.3) mg/dL AST (<40) U/L ALT (<40) U/L Alkaline Phosphatase (39-117) U/L Troponin T (<0.03) ng/mL Total Protein (5.9-8.4) gm/dL Albumin (3.2-5.2) gm/dL Globulin (2.2-3.7) gm/dL Lipase (7-60) U/L Urine Color Yellow Urine Appearance Clear (Clear) Urine pH 5.5 (5.0-9.0) Ur Specific [place] >= 1.030 (1.000-1.035) Urine Protein 100 A (Negative) mg/dL Urine Glucose (UA) Negative (Negative) mg/dL Urine Ketones 15 A (Negative) mg/dL Urine Occult Blood Trace-intact A (Negative) tonie/mcL Urine Nitrate Negative (Negative) Urine Bilirubin Negative (Negative) mg/dL Urine Urobilinogen Normal mg/dL Ur Leukocyte Esterase Negative (Negative) /uL Urine RBC 1 (0-3) /hpf Urine WBC 6 H (0-4) /hpf Ur Squamous Epith Cells 1 (0-4) /hpf Urine Bacteria None (0) /hpf Hyaline Casts 9 H (0-2) /lph Granular Casts 32 H (0-0) /lph Urine Mucus Mod A (None) /hpf Ur Culture Indicated? No Salicylates mg/dL Acetaminophen ug/mL Ethyl Alcohol mg/dL mg/dL Ethyl Alcohol g/dL (<0.010) gm/dL 03/22/22 Range/Units 15:41 WBC (4.5-11.0) K/mcL RBC (4.63-6.08) M/mcL Hgb (13.7-17.5) g/dL Hct (40.1-51.0) % POC Hct (41-55) MCV (80.0-100.0) fL MCH (26.0-34.0) pg MCHC (31.0-36.0) g/dL RDW (11.5-14.5) % Plt Count (140-440) K/mcL MPV (8.8-12.5) fL Immature Gran % (Auto) (0.0-0.5) % Neut % (Auto) (38.0-78.0) % Lymph % (Auto) (15.5-49.0) % [place] % (Auto) (1.0-12.0) % Eos % (Auto) (0.0-7.0) % Baso % (Auto) (0.0-2.0) % Lymph # (Auto) (1.50-4.80) K/mcL [place] # (Auto) (0.10-0.90) K/mcL Eos # (Auto) (0.00-0.70) K/mcL Baso # (Auto) (0.00-0.30) K/mcL Immature Gran # (0.00-0.05) K/mcl Absolute Neutrophils (1.80-8.00) K/mcL PT (11.9-14.5) sec INR (0.9-1.1) POC VBG pH (7.32-7.42) POC VBG pCO2 at Temp (41-51) POC VBG pO2 (25-40) POC VBG HCO3 (24-28) POC VBG Total CO2 (25-29) POC Venous O2 Sat (40-70) POC VBG Base Excess (-2-2) VBG Lactic Acid 4.3 H* (0.5-2) POC Sodium (133-145) POC Potassium (3.3-5.1) POC Chloride (96-108) POC Total CO2 (22-30) POC BUN (6-20) POC Creatinine (0.6-1.2) POC Glucose (70-105) POC WB Ioniz Calcium (1.16-1.32) Phosphorus (2.5-4.5) mg/dL Magnesium (1.6-2.5) mg/dL Total Bilirubin (0.1-1.0) mg/dL Direct Bilirubin (<0.3) mg/dL AST (<40) U/L ALT (<40) U/L Alkaline Phosphatase (39-117) U/L Troponin T (<0.03) ng/mL Total Protein (5.9-8.4) gm/dL Albumin (3.2-5.2) gm/dL Globulin (2.2-3.7) gm/dL Lipase (7-60) U/L Urine Color Urine Appearance (Clear) Urine pH (5.0-9.0) Ur Specific [place] (1.000-1.035) Urine Protein (Negative) mg/dL Urine Glucose (UA) (Negative) mg/dL Urine Ketones (Negative) mg/dL Urine Occult Blood (Negative) tonie/mcL Urine Nitrate (Negative) Urine Bilirubin (Negative) mg/dL Urine Urobilinogen mg/dL Ur Leukocyte Esterase (Negative) /uL Urine RBC (0-3) /hpf Urine WBC (0-4) /hpf Ur Squamous Epith Cells (0-4) /hpf Urine Bacteria (0) /hpf Hyaline Casts (0-2) /lph Granular Casts (0-0) /lph Urine Mucus (None) /hpf Ur Culture Indicated? Salicylates mg/dL Acetaminophen ug/mL Ethyl Alcohol mg/dL mg/dL Ethyl Alcohol g/dL (<0.010) gm/dL Discharge Plan Patient/Caregiver Discharge Instructions Pt seen by [facility]DERER/PA only: No Clinical Impression: Alcohol withdrawal, Dehydration Patient Disposition: Xfer As Inpt ([facility] [place]) Discharge Date/Time: 03/22/22 17:48
[2022-03-22] MEDS ORDERED: THIAMINE 100 MG/ML VIAL ONE (10:28)
[2022-03-22 10:42] LABS: POC Creatinine 1.4 (0.6-1.2); POC Potassium 4.1 (3.3-5.1)
[2022-03-22 11:24] LABS: Basophils # (Auto) 0.03 K/mcL (0.00-0.30); Basophils % (Auto) 0.3 % (0.0-2.0); Eosinophils # (Auto) 0.02 K/mcL (0.00-0.70); Eosinophils % (Auto) 0.2 % (0.0-7.0); Hematocrit 43.4 % (40.1-51.0); Hemoglobin 15.8 g/dL (13.7-17.5); Lymphocytes # (Auto) 1.26 K/mcL (1.50-4.80); Lymphocytes % (Auto) 10.8 % (15.5-49.0); Mean Cell Volume 88.2 fL (80.0-100.0); Mean Corpuscular HGB Conc 36.4 g/dL (31.0-36.0); Mean Platelet Volume 9.5 fL (8.8-12.5); Monocytes # (Auto) 0.42 K/mcL (0.10-0.90); Monocytes % (Auto) 3.6 % (1.0-12.0); Neutrophils % (Auto) 84.8 % (38.0-78.0); Platelet Count 180 K/mcL (140-440); RBC 4.92 M/mcL (4.63-6.08); Red Cell Distribution Width 14.9 % (11.5-14.5); WBC 11.7 K/mcL (4.5-11.0)
[2022-03-22 11:25] LABS: INR 1.1 (0.9-1.1); Prothrombin Time 14.8 sec (11.9-14.5)
[2022-03-22 11:36] LABS: Albumin 4.2 gm/dL (3.2-5.2); Bilirubin,Direct 0.3 mg/dL (<0.3); Bilirubin,Total 1.1 mg/dL (0.1-1.0); Globulin 3.4 gm/dL (2.2-3.7)
[2022-03-22 11:54] LABS: Alcohol, Blood < 10.0 mg/dL; Alcohol,Blood < 0.010 gm/dL (<0.010)
[2022-03-22 11:54] LABS: Acetaminophen < 5.0 ug/mL; Salicylate < 0.3 mg/dL
--- NOTE | 2022-03-22 13:08 | Cat Scan Report ---
CLINICAL INFORMATION: Abdominal and chest pain. Wide mediastinum-evaluate for aortic dissection or aneurysm COMPARISON: None. TECHNIQUE: Enteric contrast was utilized. 80 cc of Isovue-[id number] were injected intravenously, and 20 and 70 seconds later, 0.625 mm helical slices were obtained from the lung apices through the subtrochanteric regions of the femurs. Following reconstruction, 2.5 mm sagittal, coronal and axial reformatted images were processed and reviewed at multiple windows and levels. 7 mm MIP reconstructions were obtained through the lungs to optimize nodule detection.The exam was performed using radiation dose optimization techniques including, but not limited to, automated exposure control, adjustment of the mA and/or kV according to patient size and use of iterative reconstruction technique. FINDINGS: Pulmonary parenchymal windows show the lungs are clear. Pleural spaces are unremarkable-no effusions. Mediastinal windows show the heart is grossly normal in size and configuration. No significant plaque in the coronary arteries. The pulmonary arteries are normal diameter well-opacified without evidence of embolus. Thoracic aorta is also normal diameter and well-opacified. There is no adenopathy in the mediastinal, hilar or axillary regions. Esophagus is grossly normal. The thyroid is unremarkable. Abdominal images show marked diffuse fatty change within the liver which has progressed since 2019. No focal hepatic lesions. Gallbladder is surgically absent. Intrahepatic and extrahepatic bile ducts are normal caliber CBD is 5 mm. Both kidneys, adrenal glands, spleen, pancreas and aorta, including aortic branches, are normal in size, configuration and attenuation without focal lesion. There is no free air, free fluid or adenopathy. Pelvic images show normal urinary bladder. Prostate is mildly enlarged with a transverse dimension 5 cm. It is unchanged There are multiple sigmoid diverticuli as previously but no evidence of diverticulitis. The remainder of the large bowel, inferior pericecal appendix, small bowel and stomach are normal. There is a 7 cm focus of panniculitis in the central mesenteric fat is decreased slightly from previous CT. Small periumbilical hernia contains only mesenteric fat is stable. Bone windows show no osseous abnormality throughout the chest, abdomen or pelvis. IMPRESSION: 1. No evidence of aortic aneurysm or dissection: The thoracic and abdominal aorta and all branches are normal in contour and caliber without abnormality. 2. Severe fatty change within the liver. Please correlate with LFTs to evaluate for hepatocellular ascites. This has progressed 3. Sigmoid diverticulosis, but no evidence of diverticulitis. 4. 7 cm region of panniculitis and the central mesenteric fat-decreased from 2019. 5. Mild prostate enlargement Interpreted and Authenticated by: Edi Simpson 03/22/22
--- NOTE | 2022-03-22 13:23 | XRay Report ---
CLINICAL INFORMATION: Chest pain COMPARISON: None. TECHNIQUE: Portable FINDINGS: Cardiomediastinal silhouette is accentuated right rotation and lordotic positioning. It is within normal limits. Pulmonary vessels are normal. Minor bibasilar atelectasis noted. No effusions. IMPRESSION: Normal chest. Interpreted and Authenticated by: Edi Simpson 03/22/22
[2022-03-22 13:27] LABS: Appearance,Urine CLEAR (Clear); Bilirubin,Urine NEGATIVE (Negative); Color,Urine YELLOW; Culture Indicated,Urine No; Glucose,Urine (UA) NEGATIVE (Negative); Ketones,Urine 15 mg/dL (Negative); Leukocyte Esterase,Urine NEGATIVE /uL (Negative); Mucus,Urine MOD /hpf; Nitrate,Urine NEGATIVE (Negative); PH,Urine 5.5 (5.0-9.0); Protein,Urine 100 mg/dL (Negative); Specific Gravity,Urine >= 1.030 (1.000-1.035); Urine Blood TRACE-INTACT ery/mcL (Negative); Urine Granular Cast 32 /lph (0-0); Urine Hyaline Cast 9 /lph (0-2); Urine RBC 1 /hpf (0-3); Urine Squamous Epithelial Cell 1 /hpf (0-4); Urine WBC 6 /hpf (0-4); Urobilinogen,Urine Normal
[2022-03-22] MEDS ORDERED: cefTRIAXone 1 GM VIAL IV ONE (15:04)
--- NOTE | 2022-03-22 17:11 | Internal Med History&Physical ---
HPI History of Present Illness Patient information: Note initiated : 03/22/22 at 5:00 pm Service Date, if different from initiated Date: [] Patient: Cruz Mccormick a 66 y/o M admitted on for kidney issues. Chief Complaint: [] History of present illness: Mr. Mccormick is a 66 year old M Presents to the ED for alcohol withdrawal symptoms. Patient has a history of alcohol use disorder. He is he is quit at times only to relapse. He relapsed about a month ago has been drinking 1/5 of hard alcohol per day. Sounds like he stopped drinking about 3 days ago. Since then he has been progressively restless severely anxious shaking has some nausea. Said poor appetite. He also complains of diarrhea and he says that is common when he starts drinking. In the ED he was evaluated found to be tachycardic and hypertensive. He had an elevated lactate at 8.7. He was given benzodiazepines aggressive IV fluid. Which improved his tachycardia and hypertension and his lactate although it still elevated. They are still elevated but in proved. Patient still little restless. Denies chest pain coughing or shortness of breath. Review of Systems: Pertinent positives as above. Denies headache/fever/chills/vomiting/chest or abdominal pain/cough/dyspnea. Remaining 10 point review of system reviewed negative PFSH PFSH All Active Problems (Updated 03/22/22 @ 15:23 by DANNY Cheatham) Alcohol withdrawal (Acute) Dehydration (Acute) Frontal headache (Acute) Erectile dysfunction due to arterial disease (Acute) Medicare annual wellness visit, subsequent (Acute) Anxiety and depression (Chronic) Chronic depression (Chronic) Benign prostatic hyperplasia (Chronic) Enlarged prostate with lower urinary tract symptoms (Chronic) Vitamin D deficiency (Chronic 12/15/13) Relative polycythemia (Chronic) Essential hypertension (Chronic) Allergic rhinitis (Chronic) Periodontitis (Chronic) Gastroesophageal reflux disease (Chronic) Chronic pancreatitis (Chronic) Primary erectile dysfunction (Chronic) Herpes labialis (Chronic) Onychomycosis of toenail (Chronic) Candidiasis of skin (Chronic) Tubular adenoma of colon (Chronic) Hyperlipidemia (Chronic) Gilbert's syndrome (Chronic) Seasonal allergic rhinitis (Chronic) IBS (irritable bowel syndrome) (Chronic) Steatosis of liver (Chronic) History of tobacco use (Chronic) Hepatitis A (Chronic) Overweight (Chronic) Fatigue (Chronic) 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) Arthralgia (Chronic) Diabetes mellitus with nephropathy (Chronic) Hyperuricemia (Chronic) Elevated PSA (Acute) Recurrent cold sores (Acute) Conjunctivitis, left eye (Acute) Redness of eye, left (Acute) Fatigue (Acute) Cirrhosis (Chronic) Feeling unwell (Acute) Rhabdomyolysis (Acute) Alcohol abuse (Chronic) Benign prostatic hyperplasia with incomplete bladder emptying (Chronic) Insomnia (Chronic) Medical History Abdominal pain Allergic rhinitis Anxiety and depression Benign prostatic hyperplasia Candidiasis of skin Chronic depression Chronic pancreatitis Poor response to gabapentin Cirrhosis Cough Diabetes mellitus with nephropathy Elbow swelling Enlarged prostate with lower urinary tract symptoms Essential hypertension Fatigue Fatigue Feeling unwell Gastroesophageal reflux disease Gilbert's syndrome Hepatitis A Herpes labialis History of tobacco use Hyperlipidemia Hyperuricemia IBS (irritable bowel syndrome) Insomnia Knee pain Medicare annual wellness visit, initial Medicare annual wellness visit, subsequent Musculoskeletal pain Nausea Need for hepatitis C screening test Obesity On terminal carman drug therapy Onychomycosis of toenail Overweight Periodontitis Primary erectile dysfunction Recurrent cold sores Redness of eye, left Relative polycythemia Screening for HIV (human immunodeficiency virus) Seasonal allergic rhinitis Steatosis of liver Swelling of knee Tinea corporis Tubular adenoma of colon Vitamin D deficiency (12/15/13) Surgical History H/O colonoscopy (01/11/09) H/O colonoscopy (12/29/16) History of cholecystectomy (~2013) Hx of tonsillectomy Family History Father Hypertension Pulmonary emphysema Mother Hypertension Social History household members: alone marital status: single education level: master's degree occupational status: unemployed and retired sexually active: Yes physical activity: none smoking status: Current every day smoker alcohol intake frequency: former alcohol drinker substance use type: former substance user seatbelt use: always working smoke detector in home: Yes firearms in home: No MEDS/ALLERGIES Home Medications and Allergies Home Medications Medication Instructions Recorded Confirmed Type dicyclomine 10 mg capsule 10 mg PO BID 03/11/20 12/02/21 History [id number] 3 cap PO AC 12/16/20 12/02/21 History 36,000-114,000-180,000 unit capsule,delay rel (Creon) gabapentin 300 mg capsule 300 mg PO QDAY 06/12/21 12/02/21 History acyclovir 400 mg tablet 400 mg PO TID PRN cold sores #15 09/04/21 12/02/21 Rx tabs cholecalciferol (vitamin D3) 25 25 mcg PO QDAY 10/08/21 12/02/21 History mcg (1,000 unit) capsule tadalafil 20 mg tablet 20 mg PO ONCE #20 tabs 11/07/21 12/02/21 Rx allopurinol 100 mg tablet 100 mg PO QDAY #90 tabs 11/26/21 12/02/21 Rx omeprazole 20 mg capsule,delayed 20 mg PO QDAY #90 caps 11/26/21 12/02/21 Rx release nortriptyline 10 mg capsule 10 mg PO HS 12/02/21 12/02/21 History acyclovir 400 mg tablet 1 tab PO TID 12/24/21 12/24/21 History pravastatin 20 mg tablet 20 mg PO QDAY #90 tabs 02/06/22 Rx trazodone 50 mg tablet 50 mg PO QHS PRN sleep #90 tabs 02/06/22 Rx losartan 25 mg tablet 25 mg PO QDAY #90 tabs 02/12/22 Rx Allergies Allergy/AdvReac Type Severity Reaction Status Date / Time No Known Drug Allergies Allergy Unknown Verified 12/24/21 09:25 [NO KNOWN DRUG ALLERGIES] EXAM Constitutional Vitals: Temp Pulse Resp BP Pulse Ox O2 Del Method 98.2 F 95 H 14 159/102 97 Room Air 03/22/22 10:12 03/22/22 16:31 03/22/22 16:04 03/22/22 16:31 03/22/22 16:31 03/22/22 16:31 Exam: General: Alert, Awake, anxious Eyes/N/T: EOMI, PERRL, Head/Neck: neck supple, normocephalic atraumatic CV: Mildly tacky but regular, No murmurs, normal s1/s2 Pulm: Clear b/l, no wheezing/rhonchi/rales Abd: soft, nontender, +BS x4 Ext: no clubbing/cyanosis/edema Neuro: Alert, no focal deficits, moves all extremities, CN 2-12 grossly intact, sensations intact b/l upper/lower, restless and anxious Skin: warm/dry DATA Data Completed and Pending Labs: Labs from last 24 hours 03/22/22 03/22/22 03/22/22 15:41 13:55 12:29 WBC RBC Hgb Hct POC Hct MCV MCH MCHC RDW Plt Count MPV Immature Gran % (Auto) Neut % (Auto) Lymph % (Auto) [place] % (Auto) Eos % (Auto) Baso % (Auto) Lymph # (Auto) [place] # (Auto) Eos # (Auto) Baso # (Auto) Immature Gran # Absolute Neutrophils PT INR POC VBG pH 7.41 POC VBG pCO2 at Temp 36.7 L POC VBG pO2 22 L POC VBG HCO3 23.2 L POC VBG Total CO2 24.0 L POC Venous O2 Sat 37.0 L POC VBG Base Excess -1.0 VBG Lactic Acid 4.3 H* 3.6 H 4.1 H* POC Sodium POC Potassium POC Chloride POC Total CO2 POC BUN POC Creatinine POC Glucose POC WB Ioniz Calcium Total Bilirubin Direct Bilirubin AST ALT Alkaline Phosphatase Troponin T Total Protein Albumin Globulin Lipase Urine Color Urine Appearance Urine pH Ur Specific [place] Urine Protein Urine Glucose (UA) Urine Ketones Urine Occult Blood Urine Nitrate Urine Bilirubin Urine Urobilinogen Ur Leukocyte Esterase Urine RBC Urine WBC Ur Squamous Epith Cells Urine Bacteria Hyaline Casts Granular Casts Urine Mucus Ur Culture Indicated? Salicylates Acetaminophen Ethyl Alcohol mg/dL Ethyl Alcohol g/dL 03/22/22 03/22/22 03/22/22 10:40 10:39 10:36 WBC RBC Hgb Hct POC Hct 45.0 MCV MCH MCHC RDW Plt Count MPV Immature Gran % (Auto) Neut % (Auto) Lymph % (Auto) [place] % (Auto) Eos % (Auto) Baso % (Auto) Lymph # (Auto) [place] # (Auto) Eos # (Auto) Baso # (Auto) Immature Gran # Absolute Neutrophils PT INR POC VBG pH 7.42 POC VBG pCO2 at Temp 28.5 L POC VBG pO2 57 H POC VBG HCO3 18.6 L POC VBG Total CO2 19.0 L POC Venous O2 Sat 90.0 H POC VBG Base Excess -6.0 L VBG Lactic Acid 8.7 H* POC Sodium 136 POC Potassium 4.1 POC Chloride 100 POC Total CO2 19.0 L POC BUN 16 POC Creatinine 1.4 H POC Glucose 219 H POC WB Ioniz Calcium 1.00 L Total Bilirubin Direct Bilirubin AST ALT Alkaline Phosphatase Troponin T Total Protein Albumin Globulin Lipase Urine Color Yellow Urine Appearance Clear Urine pH 5.5 Ur Specific [place] >= 1.030 Urine Protein 100 A Urine Glucose (UA) Negative Urine Ketones 15 A Urine Occult Blood Trace-intact A Urine Nitrate Negative Urine Bilirubin Negative Urine Urobilinogen Normal Ur Leukocyte Esterase Negative Urine RBC 1 Urine WBC 6 H Ur Squamous Epith Cells 1 Urine Bacteria None Hyaline Casts 9 H Granular Casts 32 H Urine Mucus Mod A Ur Culture Indicated? No Salicylates Acetaminophen Ethyl Alcohol mg/dL Ethyl Alcohol g/dL 03/22/22 03/22/22 03/22/22 10:36 10:35 10:35 WBC RBC Hgb Hct POC Hct MCV MCH MCHC RDW Plt Count MPV Immature Gran % (Auto) Neut % (Auto) Lymph % (Auto) [place] % (Auto) Eos % (Auto) Baso % (Auto) Lymph # (Auto) [place] # (Auto) Eos # (Auto) Baso # (Auto) Immature Gran # Absolute Neutrophils PT INR POC VBG pH POC VBG pCO2 at Temp POC VBG pO2 POC VBG HCO3 POC VBG Total CO2 POC Venous O2 Sat POC VBG Base Excess VBG Lactic Acid POC Sodium POC Potassium POC Chloride POC Total CO2 POC BUN POC Creatinine POC Glucose POC WB Ioniz Calcium Total Bilirubin 1.1 H Direct Bilirubin 0.3 H AST 85 H ALT 37 Alkaline Phosphatase 107 Troponin T < 0.01 Total Protein 7.6 Albumin 4.2 Globulin 3.4 Lipase 39 Urine Color Urine Appearance Urine pH Ur Specific [place] Urine Protein Urine Glucose (UA) Urine Ketones Urine Occult Blood Urine Nitrate Urine Bilirubin Urine Urobilinogen Ur Leukocyte Esterase Urine RBC Urine WBC Ur Squamous Epith Cells Urine Bacteria Hyaline Casts Granular Casts Urine Mucus Ur Culture Indicated? Salicylates Acetaminophen Ethyl Alcohol mg/dL < 10.0 Ethyl Alcohol g/dL < 0.010 03/22/22 03/22/22 03/22/22 10:34 10:34 10:34 WBC 11.7 H RBC 4.92 Hgb 15.8 Hct 43.4 POC Hct MCV 88.2 MCH 32.1 MCHC 36.4 H RDW 14.9 H Plt Count 180 MPV 9.5 Immature Gran % (Auto) 0.3 Neut % (Auto) 84.8 H Lymph % (Auto) 10.8 L [place] % (Auto) 3.6 Eos % (Auto) 0.2 Baso % (Auto) 0.3 Lymph # (Auto) 1.26 L [place] # (Auto) 0.42 Eos # (Auto) 0.02 Baso # (Auto) 0.03 Immature Gran # 0.04 Absolute Neutrophils 9.93 H PT 14.8 H INR 1.1 POC VBG pH POC VBG pCO2 at Temp POC VBG pO2 POC VBG HCO3 POC VBG Total CO2 POC Venous O2 Sat POC VBG Base Excess VBG Lactic Acid POC Sodium POC Potassium POC Chloride POC Total CO2 POC BUN POC Creatinine POC Glucose POC WB Ioniz Calcium Total Bilirubin Direct Bilirubin AST ALT Alkaline Phosphatase Troponin T Total Protein Albumin Globulin Lipase Urine Color Urine Appearance Urine pH Ur Specific [place] Urine Protein Urine Glucose (UA) Urine Ketones Urine Occult Blood Urine Nitrate Urine Bilirubin Urine Urobilinogen Ur Leukocyte Esterase Urine RBC Urine WBC Ur Squamous Epith Cells Urine Bacteria Hyaline Casts Granular Casts Urine Mucus Ur Culture Indicated? Salicylates < 0.3 Acetaminophen < 5.0 Ethyl Alcohol mg/dL Ethyl Alcohol g/dL A/P Narrative A/P Narrative: A: *Etoh W/D (h/o etoh abuse): *Lactic acidosis: 2/2 above + volume depletion + likely liver dz *Volume Depletion: *JERROD on CKD II: *HTN/HLD: *Chronic pancreatitis: *Fatty liver: *BPH/GERD: *Depression/anxiety: *Pre-Diabetes: P: -IVF -CIWA with prn benzo., vitamins/minerals -prn clonidine -monitor vitals closely -monitor renal fxn, uop/fluid balance - -A1c, SSI -hold ARB for jerrod -Home Medication reconciliation -PT/OT -ppx: Lovenox / home PPI Time Spent With Patient Time: Total time spent is greater than 50% in coordination of care (as documented) at patient's floor/unit and/or counseling patient: Initial: Total time with patient: 75 - 90 minutes
[2022-03-22 17:33] LABS: Phosphorous 3.1 mg/dL (2.5-4.5)
[2022-03-22] MEDS ORDERED: DEXTROSE 50% 50 ML VIAL IV PRN (17:51)
[2022-03-22] MEDS ORDERED: DEXTROSE 31 GM ORAL.SUSP PO PRN (17:51)
[2022-03-22] MEDS ORDERED: LORazepam 2 MG/ML VIAL IV PRN (17:51)
[2022-03-22] MEDS ORDERED: POTASSIUM CHLORIDE 40 MEQ in DEXTROSE 5% IN WATER 500 ML IV PRN (17:51)
[2022-03-22] MEDS ORDERED: 0.9 % SODIUM CHLORIDE 1,000 ML IV SCH (17:51)
[2022-03-22] MEDS ORDERED: IPRATROPIUM/ALBUTEROL 3 ML AMPUL.NEB NEB PRN (17:51)
[2022-03-22] MEDS ORDERED: MAGNESIUM SULFATE 2 GM/50 ML BAG IV PRN (17:51)
[2022-03-22] MEDS ORDERED: POTASSIUM CHLORIDE 20 MEQ TABLET PO PRN ×2 (17:51)
[2022-03-22] MEDS ORDERED: ONDANSETRON 4 MG/2 ML VIAL IV PRN (17:51)
[2022-03-22 19:19] LABS: Hemoglobin A1C 6.2 % Hgb (4.0-6.0)
[2022-03-22] MEDS: INSULIN LISPRO 1 UNIT/0.01 ML UNIT SQ SCH (20:09)
[2022-03-22] MEDS: 0.9 % SODIUM CHLORIDE 10 ML SYRINGE IV SCH (20:09)
[2022-03-22] MEDS: cloNIDine HCL 0.1 MG TABLET PO PRN (20:13)
[2022-03-22] MEDS: chlordiazePOXIDE 25 MG CAPSULE PO PRN (20:13)
[2022-03-22] MEDS ORDERED: 0.9 % SODIUM CHLORIDE 10 ML SYRINGE IV SCH (22:00)
[2022-03-23] MEDS: 0.9 % SODIUM CHLORIDE 10 ML SYRINGE IV SCH ×3 (04:45→21:30)
[2022-03-23] MEDS: INSULIN LISPRO 1 UNIT/0.01 ML UNIT SQ SCH ×4 (07:09→21:31)
[2022-03-23] MEDS: chlordiazePOXIDE 25 MG CAPSULE PO PRN ×2 (07:18→16:06)
--- NOTE | 2022-03-23 07:49 | Internal Med Progress Note ---
SUBJECTIVE Subjective Patient information: Note initiated : 03/23/22 at 7:46 am Service Date, if different from initiated Date: [] Patient: Cruz Mccormick 66 y/o M admitted on 03/22/22 for kidney issues. Chief Complaint: [] Interval history: History of present illness: Mr. Mccormick is a 66 year old M Presents to the ED for alcohol withdrawal symptoms. Patient has a history of alcohol use disorder. He is he is quit at times only to relapse. He relapsed about a month ago has been drinking 1/5 of hard alcohol per day. Sounds like he stopped drinking about 3 days ago. Since then he has been progressively restless severely anxious shaking has some nausea. Said poor appetite. He also complains of diarrhea and he says that is common when he starts drinking. In the ED he was evaluated found to be tachycardic and hypertensive. He had an elevated lactate at 8.7. He was given benzodiazepines aggressive IV fluid. Which improved his tachycardia and hypertension and his lactate although it still elevated. They are still elevated but in proved. Patient still little restless. Denies chest pain coughing or shortness of breath. 03/23 Patient received several doses of Librium last night. Patient's heart rate and blood pressure much improved this morning. He still feels quite anxious. Does have a headache and some nausea. Review of Systems: denies fever/chills/vomiting/chest or abdominal pain/cough/dyspnea. Otherwise see above. Constitutional Vitals: Vital Signs Temp Pulse Resp BP Pulse Ox O2 Del Method 97.8 F 61 13 134/81 96 Room Air 03/23/22 04:01 03/23/22 06:00 03/23/22 06:00 03/23/22 06:00 03/23/22 06:00 03/23/22 06:00 Period Temp Pulse Resp BP Sys/Haque Pulse Ox O2 Del Method O2 Flow Rate Last 24 Hr 97.8 F-98.2 F 61-154 11-25 127-202/75-191 92-100 Room Air-Room Air Intake and Output 03/22/22 03/23/22 03/23/22 19:59 03:59 11:59 Intake Total 2051 600 240 Output Total 425 625 Balance 1626 -25 240 Weight 73.21 kg Intake & Output: Intake & Output 01/03/23/22 03/23/22 19:59 03:59 11:59 Intake Total 205 600 240 Output Total 425 625 Balance 1626 -25 240 Weight 73.21 kg Intake: IV 2050 Sodium Chloride 0.9% 1,000 ml @ 2000 Wide Open IV BOLUS ONE Rx#: [id number] Vitamin B1 100 mg In Sodium 51 Chloride 0.9% 50 ml @ 50 mls/hr IV ONCE ONE Rx#:[id number] Oral 600 240 Output: Urine Catheter Amount 425 Void Amount 625 Other: Meal Nourishment/Supplement Percent of Meal Consumed 100% Feeding Ability Assist with Tray Set Up Urine Appearance Clear Clear Urine Color Dark [place] Dark Yellow Urine Odor Normal Normal Exam: General: Alert, Awake, somewhat anxious Eyes/N/T: EOMI, Head/Neck: neck supple, CV: RRR, No murmurs, Pulm: Clear b/l, no wheezing/rhonchi/rales Abd: soft, nontender, +BS x4 Ext: no clubbing/cyanosis/edema Neuro: Alert, no focal deficits, moves all extremities, Skin: warm/dry OBJ DATA Labs 03/22/22 10:34 03/23/22 05:05 Labs: Abnormal Lab Results 03/22/22 03/22/22 03/22/22 15:41 13:55 12:29 WBC MCHC RDW Neut % (Auto) Lymph % (Auto) Lymph # (Auto) Absolute Neutrophils PT POC VBG pCO2 at Temp 36.7 L POC VBG pO2 22 L POC VBG HCO3 23.2 L POC VBG Total CO2 24.0 L POC Venous O2 Sat 37.0 L POC VBG Base Excess VBG Lactic Acid 4.3 H* 3.6 H 4.1 H* POC Total CO2 POC Creatinine POC Glucose Hemoglobin A1c POC WB Ioniz Calcium Magnesium Total Bilirubin Direct Bilirubin AST Urine Protein Urine Ketones Urine Occult Blood Urine WBC Hyaline Casts Granular Casts Urine Mucus 03/22/22 03/22/22 03/22/22 10:40 10:39 10:36 WBC MCHC RDW Neut % (Auto) Lymph % (Auto) Lymph # (Auto) Absolute Neutrophils PT POC VBG pCO2 at Temp 28.5 L POC VBG pO2 57 H POC VBG HCO3 18.6 L POC VBG Total CO2 19.0 L POC Venous O2 Sat 90.0 H POC VBG Base Excess -6.0 L VBG Lactic Acid 8.7 H* POC Total CO2 19.0 L POC Creatinine 1.4 H POC Glucose 219 H Hemoglobin A1c POC WB Ioniz Calcium 1.00 L Magnesium Total Bilirubin Direct Bilirubin AST Urine Protein 100 A Urine Ketones 15 A Urine Occult Blood Trace-intact A Urine WBC 6 H Hyaline Casts 9 H Granular Casts 32 H Urine Mucus Mod A 03/22/22 03/22/22 03/22/22 10:35 10:34 10:34 WBC MCHC RDW Neut % (Auto) Lymph % (Auto) Lymph # (Auto) Absolute Neutrophils PT POC VBG pCO2 at Temp POC VBG pO2 POC VBG HCO3 POC VBG Total CO2 POC Venous O2 Sat POC VBG Base Excess VBG Lactic Acid POC Total CO2 POC Creatinine POC Glucose Hemoglobin A1c 6.2 H POC WB Ioniz Calcium Magnesium 1.4 L Total Bilirubin 1.1 H Direct Bilirubin 0.3 H AST 85 H Urine Protein Urine Ketones Urine Occult Blood Urine WBC Hyaline Casts Granular Casts Urine Mucus 03/22/22 03/22/22 10:34 10:34 WBC 11.7 H MCHC 36.4 H RDW 14.9 H Neut % (Auto) 84.8 H Lymph % (Auto) 10.8 L Lymph # (Auto) 1.26 L Absolute Neutrophils 9.93 H PT 14.8 H POC VBG pCO2 at Temp POC VBG pO2 POC VBG HCO3 POC VBG Total CO2 POC Venous O2 Sat POC VBG Base Excess VBG Lactic Acid POC Total CO2 POC Creatinine POC Glucose Hemoglobin A1c POC WB Ioniz Calcium Magnesium Total Bilirubin Direct Bilirubin AST Urine Protein Urine Ketones Urine Occult Blood Urine WBC Hyaline Casts Granular Casts Urine Mucus Meds: Medications Hydrocodone Bitart/Acetaminophen (Hydrocodone/Apap 5/325mg Tablet) 1 tab PO Q4HP PRN PRN Reason: PAIN LEVEL 3-6 Albuterol/Ipratropium (Ipratropium/Albuterol 3 Ml Ampul.Neb) 3 ml NEB Q4HP PRN PRN Reason: Shortness Of Breath Chlordiazepoxide HCl (Chlordiazepoxide 25 Mg Capsule) 50 mg PO UD PRN; Protocol PRN Reason: Alcohol Withdrawal/Assess CIWA Last Admin: 03/23/22 07:18 Dose: 50 mg Clonidine HCl (Clonidine Hcl 0.1 Mg Tablet) 0.1 mg PO Q4HP PRN PRN Reason: ALC Last Admin: 03/22/22 20:13 Dose: 0.1 mg Dextrose (Dextrose 50% 50 Ml Vial) 0 ml IV UD PRN PRN Reason: Per Sliding Scale Diagnostic Test (Pha) (Accu-Chek 1 Each Strip) 1 each FS [facility] Last Admin: 03/23/22 07:07 Dose: 1 each Enoxaparin Sodium (Enoxaparin 40 Mg/0.4 Ml Syringe) 40 mg SQ DAILY [facility] Folic Acid (Folic Acid 1 Mg Tablet) 1 mg PO DAILY [facility] Glucose (Dextrose 31 Gm Oral.Susp) 15 gm PO PRN PRN PRN Reason: Hypoglycemia Thiamine HCl 100 mg/ Sodium (Chloride) 51 mls @ 50 mls/hr IV DAILY [facility] Magnesium Sulfate (Magnesium Sulfate) 2 gm in 50 mls @ 50 mls/hr IV UD PRN PRN Reason: Magnesium </= 1.6 Potassium Chloride 40 meq/ (Dextrose) 520 mls @ 130 mls/hr IV UD PRN PRN Reason: Potassium < 3 Sodium Chloride (Sodium Chloride 0.9%) 1,000 mls @ 65 mls/hr IV .[id number] [facility] Stop: 03/23/22 09:14 Last Admin: 03/22/22 18:31 Dose: 65 mls/hr Insulin Human Lispro (Insulin Lispro 1 Unit/0.01 Ml Unit) 0 unit SQ [facility]; Protocol Last Admin: 03/23/22 07:09 Dose: 2 unit Iron Carb/Multivit/Cass/Folic Acid (Multivit,Ther Iron,Ca,Fa & Min 1 Tablet) 1 tab PO DAILY [facility] Lorazepam (Lorazepam 2 Mg/Ml Vial) 0 mg IV UD PRN; Protocol PRN Reason: Alcohol Withdrawal/Assess CIWA Ondansetron HCl (Ondansetron 4 Mg/2 Ml Vial) 4 mg IV Q4HP PRN PRN Reason: Nausea And Vomiting Last Admin: 03/23/22 04:34 Dose: 4 mg Potassium Chloride (Potassium Chloride 20 Meq Tablet) 40 meq PO UD PRN PRN Reason: Potassium < 3 Potassium Chloride (Potassium Chloride 20 Meq Tablet) 40 meq PO UD PRN PRN Reason: Potssium is 3-3.5 Sodium Chloride (0.9 % Sodium Chloride 10 Ml Syringe) 10 ml IV Q8 [facility] Last Admin: 03/23/22 04:45 Dose: Not Given A/P Narrative A/P Narrative: A: *Etoh W/D (h/o etoh abuse): *Lactic acidosis: 2/2 above + volume depletion + likely liver dz *Volume Depletion: *LUIS F on CKD II: *Hyponatremia/Hypophos/Hypomag: *HTN/HLD: *Chronic pancreatitis: *Fatty liver: *BPH/GERD: *Depression/anxiety: *Pre-Diabetes: P: -pending am labs -IVF's -CIWA with prn benzo., vitamins/minerals -prn clonidine -monitor vitals closely -Aggressively treat electrolyte abnormalities and trend -monitor renal fxn, uop/fluid balance -SSI -hold ARB for luis f -PT/OT -ppx: Lovenox / home PPI Time Spent With Patient Time: Total time spent is greater than 50% in coordination of care (as documented) at patient's floor/unit and/or counseling patient: Subsequent: Total time with patient: 50 - 65 Minutes QUALITY VTE Deep Vein Thrombosis/Pulmonary Embolism Present on Admission: No
[2022-03-23] MEDS: MULTIVIT,THER IRON,CA,FA & MIN 1 TABLET PO SCH (08:27)
[2022-03-23] MEDS: GABAPENTIN 300 MG CAPSULE PO SCH (08:27)
[2022-03-23] MEDS: FOLIC ACID 1 MG TABLET PO SCH (08:27)
[2022-03-23] MEDS: SIMVASTATIN 10 MG TABLET PO SCH (08:27)
[2022-03-23] MEDS: ALLOPURINOL 100 MG TABLET PO SCH (08:28)
[2022-03-23] MEDS: OMEPRAZOLE 20 MG CAPSULE PO SCH (08:29)
[2022-03-23] MEDS: ENOXAPARIN 40 MG/0.4 ML SYRINGE SQ SCH (08:29)
[2022-03-23] MEDS: THIAMINE 100 MG in 0.9 % SODIUM CHLORIDE 50 ML IV SCH (08:30)
[2022-03-23] MEDS ORDERED: MAGNESIUM SULFATE 2 GM/50 ML BAG IV ONE (09:31)
[2022-03-23] MEDS ORDERED: CALCIUM GLUCONATE 4.65 MEQ/10 ML VIAL IV ONE (09:32)
[2022-03-23 10:24] LABS: ALT/SGPT 24 U/L (<40); AST/SGOT 56 U/L (<40); Albumin 2.9 gm/dL (3.2-5.2); Albumin/Globulin Ratio 1.2 (1.0-2.3); Alkaline Phosphatase 71 U/L (39-117); Basophils # (Auto) 0.02 K/mcL (0.00-0.30); Basophils % (Auto) 0.4 % (0.0-2.0); Bilirubin,Direct 0.3 mg/dL (<0.3); Bilirubin,Total 1.1 mg/dL (0.1-1.0); Blood Urea Nitrogen 9 mg/dL (8-23); Calcium 7.1 mg/dL (8.6-10.4); Carbon Dioxide 24 mmol/L (22-30); Chloride 99 mmol/L (96-108); Eosinophils # (Auto) 0.03 K/mcL (0.00-0.70); Eosinophils % (Auto) 0.7 % (0.0-7.0); Globulin 2.4 gm/dL (2.2-3.7); Glomerular Filtration Rate 76; Glucose 153 mg/dL (70-105); Hematocrit 31.9 % (40.1-51.0); Hemoglobin 11.7 g/dL (13.7-17.5); Lactate Dehydrogenase 192 U/L (135-225); Lymphocytes # (Auto) 1.49 K/mcL (1.50-4.80); Lymphocytes % (Auto) 33.3 % (15.5-49.0); Mean Cell Volume 88.4 fL (80.0-100.0); Mean Corpuscular HGB Conc 36.7 g/dL (31.0-36.0); Mean Platelet Volume 9.5 fL (8.8-12.5); Monocytes # (Auto) 0.23 K/mcL (0.10-0.90); Monocytes % (Auto) 5.1 % (1.0-12.0); Neutrophils % (Auto) 60.1 % (38.0-78.0); Phosphorous 1.5 mg/dL (2.5-4.5); Platelet Count 93 K/mcL (140-440); RBC 3.61 M/mcL (4.63-6.08); Red Cell Distribution Width 14.5 % (11.5-14.5); Triglycerides 307 mg/dL (<150); Uric Acid 5.9 mg/dL (2.5-8.0); WBC 4.5 K/mcL (4.5-11.0)
[2022-03-23] MEDS: PHOSPHORUS 250 MG TABLET PO SCH ×2 (10:37→21:30)
[2022-03-23] MEDS ORDERED: POTASSIUM PHOSPHATE 40 MEQ in DEXTROSE 5% IN WATER 500 ML IV SCH (10:45)
[2022-03-23] MEDS: LORazepam 2 MG/ML VIAL IV PRN (11:41)
[2022-03-23] MEDS: LIPASE PROTEASE AMYLASE PO SCH ×2 (12:01→17:00)
[2022-03-23] MEDS: CALCIUM GLUCONATE 4.65 MEQ in DEXTROSE 5% IN WATER 50 ML IV SCH ×2 (12:05→12:08)
[2022-03-23] MEDS: NORTRIPTYLINE 10 MG CAPSULE PO SCH (21:30)
[2022-03-23] MEDS: traZODone HCL 50 MG TABLET PO PRN (21:30)
[2022-03-23] MEDS: HYDROcodone/APAP 5/325MG TABLET PO PRN (22:39)
[2022-03-24] MEDS: 0.9 % SODIUM CHLORIDE 10 ML SYRINGE IV SCH ×3 (06:01→21:19)
[2022-03-24 06:38] LABS: Basophils # (Auto) 0.02 K/mcL (0.00-0.30); Basophils % (Auto) 0.4 % (0.0-2.0); Eosinophils # (Auto) 0.05 K/mcL (0.00-0.70); Hematocrit 35.7 % (40.1-51.0); Hemoglobin 12.7 g/dL (13.7-17.5); Lymphocytes # (Auto) 1.73 K/mcL (1.50-4.80); Lymphocytes % (Auto) 33.4 % (15.5-49.0); Mean Cell Volume 90.2 fL (80.0-100.0); Mean Corpuscular HGB Conc 35.6 g/dL (31.0-36.0); Mean Platelet Volume 10.2 fL (8.8-12.5); Monocytes # (Auto) 0.19 K/mcL (0.10-0.90); Monocytes % (Auto) 3.7 % (1.0-12.0); Neutrophils % (Auto) 61.3 % (38.0-78.0); Platelet Count 74 K/mcL (140-440); RBC 3.96 M/mcL (4.63-6.08); Red Cell Distribution Width 14.5 % (11.5-14.5); WBC 5.2 K/mcL (4.5-11.0)
[2022-03-24 07:00] LABS: Blood Urea Nitrogen 12 mg/dL (8-23); Calcium 7.8 mg/dL (8.6-10.4); Carbon Dioxide 25 mmol/L (22-30); Chloride 97 mmol/L (96-108); Glomerular Filtration Rate 68; Glucose 153 mg/dL (70-105)
--- NOTE | 2022-03-24 07:28 | EKG ---
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
[2022-03-24] MEDS: FOLIC ACID 1 MG TABLET PO SCH ×2 (07:41→09:18)
[2022-03-24] MEDS: OMEPRAZOLE 20 MG CAPSULE PO SCH (07:41)
[2022-03-24] MEDS: SIMVASTATIN 10 MG TABLET PO SCH ×2 (07:41→09:19)
[2022-03-24] MEDS: DICYCLOMINE 20 MG TABLET PO SCH ×2 (07:41→21:18)
[2022-03-24] MEDS: GABAPENTIN 300 MG CAPSULE PO SCH ×2 (07:41→09:18)
[2022-03-24] MEDS: ENOXAPARIN 40 MG/0.4 ML SYRINGE SQ SCH (07:42)
[2022-03-24] MEDS: LIPASE PROTEASE AMYLASE PO SCH ×3 (07:42→16:45)
[2022-03-24] MEDS: MULTIVIT,THER IRON,CA,FA & MIN 1 TABLET PO SCH ×2 (07:42→09:18)
[2022-03-24] MEDS: THIAMINE 100 MG in 0.9 % SODIUM CHLORIDE 50 ML IV SCH (07:42)
[2022-03-24] MEDS: ALLOPURINOL 100 MG TABLET PO SCH ×2 (07:42→09:19)
[2022-03-24] MEDS: INSULIN LISPRO 1 UNIT/0.01 ML UNIT SQ SCH ×4 (09:25→21:27)
[2022-03-24] MEDS: chlordiazePOXIDE 25 MG CAPSULE PO SCH ×3 (09:33→21:18)
--- NOTE | 2022-03-24 10:26 | Internal Med Progress Note ---
SUBJECTIVE Subjective Patient information: Note initiated : 03/24/22 at 10:24 am Service Date, if different from initiated Date: [] Patient: Cruz Mccormick 66 y/o M admitted on 03/22/22 for kidney is sues/Abdominal pain. Chief Complaint: [Weakness, AMS] Principal diagnosis: EtOH withdrawal Interval history: The patient was resting comfortably in bed. He is calm, cooperative and conversive. His chief complaint was abdominal discomfort. The patient did have CT abdomen pelvis on admission which was unrevealing. Discussed the case with the RN. Constitutional Vitals: Vital Signs Temp Pulse Resp BP Pulse Ox O2 Del Method 98.3 F 84 13 160/82 97 Room Air 03/24/22 08:21 03/24/22 08:21 03/24/22 08:21 03/24/22 08:21 03/24/22 08:21 03/24/22 08:21 Period Temp Pulse Resp BP Sys/Haque Pulse Ox O2 Del Method O2 Flow Rate Last 24 Hr 97.7 F-98.7 F 71-93 12-20 121-160/61-95 97-99 Room Air-Room Air Intake and Output 03/23/22 03/24/22 03/24/22 19:59 03:59 11:59 Intake Total 8327 321.3619 411 Output Total 4097 731 6699 Balance 580 -240.9091 -614 Weight 74.298 kg Intake & Output: Intake & Output 03/23/22 03/24/22 03/24/22 19:59 03:59 11:59 Intake Total 4222 753.3743 411 Output Total 2299 670 6436 Balance 580 -240.9091 -614 Weight 74.298 kg Intake: IV 2244 503.0412 51 Sodium Chloride 0.9% 1,000 ml @ 1000 65 mls/hr IV [id number] JG Rx#: [id number] Calcium Gluconate 4.65 Meq In 65 Dextrose 5% in Water 50 ml @ 100 mls/hr IV 1100,1200 JG Rx# :[id number] Potassium Phosphate 40 Meq In 509.0909 Dextrose 5% in Water 500 ml @ 50.909 mls/hr IV ONCE JG Rx#: [id number] Vitamin B1 100 mg In Sodium 51 Chloride 0.9% 50 ml @ 50 mls/hr IV DAILY JG Rx#:[id number] Oral 640 360 Output: Void Amount 8427 534 0866 Other: Meal Dinner Percent of Meal Consumed 100% Feeding Ability Independent Urine Appearance Clear Clear Clear Urine Color Yellow Dark Yellow Yellow Urine Odor Normal Stool Size Small Small Stool Color Brown Brown Stool Consistency Soft Soft Formed Formed Head Head exam: Present atraumatic and normal inspection Eye Eye exam: Present normal appearance ENT ENT exam: Present mucous membranes moist, normal exam and normal external ear exam Neck Neck exam: Present normal inspection Respiratory Respiratory exam: Present normal respiratory exam Cardiovascular Cardiovascular exam: Present normal rate and rhythm GI/Abdominal GI/Abdominal exam: Present normal bowel sounds, soft and distended Back Exam Back exam: Present normal inspection Neurological Exam Neurological exam: Present alert and oriented X3 Skin Skin exam: Present intact and warm OBJ DATA Labs 03/24/22 05:30 03/24/22 05:29 Labs: Abnormal Lab Results 03/24/22 03/24/22 03/23/22 05:30 05:29 05:05 WBC RBC 3.96 L Hgb 12.7 L Hct 35.7 L MCHC RDW Plt Count 74 L Neut % (Auto) Lymph % (Auto) Lymph # (Auto) Absolute Neutrophils PT POC VBG pCO2 at Temp POC VBG pO2 POC VBG HCO3 POC VBG Total CO2 POC Venous O2 Sat POC VBG Base Excess VBG Lactic Acid Sodium 132 L POC Total CO2 POC Creatinine Glucose 153 H 153 H POC Glucose Hemoglobin A1c Calcium 7.8 L 7.1 L POC WB Ioniz Calcium Phosphorus 1.5 L Magnesium 1.3 L Total Bilirubin 1.1 H Direct Bilirubin 0.3 H GGT 423 H AST 56 H Total Protein 5.3 L Albumin 2.9 L Triglycerides 307 H Urine Protein Urine Ketones Urine Occult Blood Urine WBC Hyaline Casts Granular Casts Urine Mucus 03/23/22 03/22/22 03/22/22 05:05 15:41 13:55 WBC RBC 3.61 L Hgb 11.7 L Hct 31.9 L MCHC 36.7 H RDW Plt Count 93 L Neut % (Auto) Lymph % (Auto) Lymph # (Auto) 1.49 L Absolute Neutrophils PT POC VBG pCO2 at Temp POC VBG pO2 POC VBG HCO3 POC VBG Total CO2 POC Venous O2 Sat POC VBG Base Excess VBG Lactic Acid 4.3 H* 3.6 H Sodium POC Total CO2 POC Creatinine Glucose POC Glucose Hemoglobin A1c Calcium POC WB Ioniz Calcium Phosphorus Magnesium Total Bilirubin Direct Bilirubin GGT AST Total Protein Albumin Triglycerides Urine Protein Urine Ketones Urine Occult Blood Urine WBC Hyaline Casts Granular Casts Urine Mucus 03/22/22 03/22/22 03/22/22 12:29 10:40 10:39 WBC RBC Hgb Hct MCHC RDW Plt Count Neut % (Auto) Lymph % (Auto) Lymph # (Auto) Absolute Neutrophils PT POC VBG pCO2 at Temp 36.7 L POC VBG pO2 22 L POC VBG HCO3 23.2 L POC VBG Total CO2 24.0 L POC Venous O2 Sat 37.0 L POC VBG Base Excess VBG Lactic Acid 4.1 H* Sodium POC Total CO2 19.0 L POC Creatinine 1.4 H Glucose POC Glucose 219 H Hemoglobin A1c Calcium POC WB Ioniz Calcium 1.00 L Phosphorus Magnesium Total Bilirubin Direct Bilirubin GGT AST Total Protein Albumin Triglycerides Urine Protein 100 A Urine Ketones 15 A Urine Occult Blood Trace-intact A Urine WBC 6 H Hyaline Casts 9 H Granular Casts 32 H Urine Mucus Mod A 03/22/22 03/22/22 03/22/22 10:36 10:35 10:34 WBC RBC Hgb Hct MCHC RDW Plt Count Neut % (Auto) Lymph % (Auto) Lymph # (Auto) Absolute Neutrophils PT POC VBG pCO2 at Temp 28.5 L POC VBG pO2 57 H POC VBG HCO3 18.6 L POC VBG Total CO2 19.0 L POC Venous O2 Sat 90.0 H POC VBG Base Excess -6.0 L VBG Lactic Acid 8.7 H* Sodium POC Total CO2 POC Creatinine Glucose POC Glucose Hemoglobin A1c 6.2 H Calcium POC WB Ioniz Calcium Phosphorus Magnesium Total Bilirubin 1.1 H Direct Bilirubin 0.3 H GGT AST 85 H Total Protein Albumin Triglycerides Urine Protein Urine Ketones Urine Occult Blood Urine WBC Hyaline Casts Granular Casts Urine Mucus 03/22/22 03/22/22 03/22/22 10:34 10:34 10:34 WBC 11.7 H RBC Hgb Hct MCHC 36.4 H RDW 14.9 H Plt Count Neut % (Auto) 84.8 H Lymph % (Auto) 10.8 L Lymph # (Auto) 1.26 L Absolute Neutrophils 9.93 H PT 14.8 H POC VBG pCO2 at Temp POC VBG pO2 POC VBG HCO3 POC VBG Total CO2 POC Venous O2 Sat POC VBG Base Excess VBG Lactic Acid Sodium POC Total CO2 POC Creatinine Glucose POC Glucose Hemoglobin A1c Calcium POC WB Ioniz Calcium Phosphorus Magnesium 1.4 L Total Bilirubin Direct Bilirubin GGT AST Total Protein Albumin Triglycerides Urine Protein Urine Ketones Urine Occult Blood Urine WBC Hyaline Casts Granular Casts Urine Mucus Meds: Medications Hydrocodone Bitart/Acetaminophen (Hydrocodone/Apap 5/325mg Tablet) 1 tab PO Q4HP PRN PRN Reason: PAIN LEVEL 3-6 Last Admin: 03/23/22 22:39 Dose: 1 tab Albuterol/Ipratropium (Ipratropium/Albuterol 3 Ml Ampul.Neb) 3 ml NEB Q4HP PRN PRN Reason: Shortness Of Breath Allopurinol (Allopurinol 100 Mg Tablet) 100 mg PO QDAY [facility] Last Admin: 03/24/22 09:19 Dose: Not Given Chlordiazepoxide HCl (Chlordiazepoxide 25 Mg Capsule) 25 mg PO TID [facility]; Protocol Last Admin: 03/24/22 09:33 Dose: 25 mg Clonidine HCl (Clonidine Hcl 0.1 Mg Tablet) 0.1 mg PO Q4HP PRN PRN Reason: ALC Last Admin: 03/22/22 20:13 Dose: 0.1 mg Dextrose (Dextrose 50% 50 Ml Vial) 0 ml IV UD PRN PRN Reason: Per Sliding Scale Diagnostic Test (Pha) (Accu-Chek 1 Each Strip) 1 each FS ACHS [facility] Last Admin: 03/24/22 08:09 Dose: 1 each Dicyclomine HCl (Dicyclomine 20 Mg Tablet) 10 mg PO BID [facility] Last Admin: 03/24/22 07:41 Dose: 10 mg Enoxaparin Sodium (Enoxaparin 40 Mg/0.4 Ml Syringe) 40 mg SQ DAILY [facility] Last Admin: 03/24/22 07:42 Dose: 40 mg Folic Acid (Folic Acid 1 Mg Tablet) 1 mg PO DAILY [facility] Last Admin: 03/24/22 09:18 Dose: Not Given Gabapentin (Gabapentin 300 Mg Capsule) 300 mg PO QDAY [facility] Last Admin: 03/24/22 09:18 Dose: Not Given Glucose (Dextrose 31 Gm Oral.Susp) 15 gm PO PRN PRN PRN Reason: Hypoglycemia Magnesium Sulfate (Magnesium Sulfate) 2 gm in 50 mls @ 50 mls/hr IV UD PRN PRN Reason: Magnesium </= 1.6 Last Infusion: 03/23/22 11:16 Dose: Infused Potassium Chloride 40 meq/ (Dextrose) 520 mls @ 130 mls/hr IV UD PRN PRN Reason: Potassium < 3 Insulin Human Lispro (Insulin Lispro 1 Unit/0.01 Ml Unit) 0 unit SQ ACHS [facility]; Protocol Last Admin: 03/24/22 09:25 Dose: 2 unit Iron Carb/Multivit/King/Folic Acid (Multivit,Ther Iron,Ca,Fa & Min 1 Tablet) 1 tab PO DAILY [facility] Last Admin: 03/24/22 09:18 Dose: Not Given Lorazepam (Lorazepam 2 Mg/Ml Vial) 0 mg IV UD PRN; Protocol PRN Reason: Alcohol Withdrawal/Assess CIWA Lorazepam (Lorazepam 2 Mg/Ml Vial) 0.5 mg IV Q4-6HP PRN PRN Reason: ANXIETY/SEDATION Last Admin: 03/23/22 11:41 Dose: 0.5 mg Nortriptyline HCl (Nortriptyline 10 Mg Capsule) 10 mg PO HS [facility] Last Admin: 03/23/22 21:30 Dose: 10 mg Omeprazole (Omeprazole 20 Mg Capsule) 20 mg PO QAMAC [facility] Last Admin: 03/24/22 07:41 Dose: 20 mg Ondansetron HCl (Ondansetron 4 Mg/2 Ml Vial) 4 mg IV Q4HP PRN PRN Reason: Nausea And Vomiting Last Admin: 03/23/22 04:34 Dose: 4 mg Lipase-Protease- Amylase [Creon] 36, 000-114,000- 180,000 3 dose PO AC [facility] Last Admin: 03/24/22 07:42 Dose: 3 dose Potassium Chloride (Potassium Chloride 20 Meq Tablet) 40 meq PO UD PRN PRN Reason: Potassium < 3 Potassium Chloride (Potassium Chloride 20 Meq Tablet) 40 meq PO UD PRN PRN Reason: Potssium is 3-3.5 Simvastatin (Simvastatin 10 Mg Tablet) 10 mg PO QDAY [facility] Last Admin: 03/24/22 09:19 Dose: Not Given Sodium Chloride (0.9 % Sodium Chloride 10 Ml Syringe) 10 ml IV Q8 [facility] Last Admin: 03/24/22 06:01 Dose: 10 ml Trazodone HCl (Trazodone Hcl 50 Mg Tablet) 50 mg PO HSP PRN PRN Reason: sleep Last Admin: 03/23/22 21:30 Dose: 50 mg A/P Narrative A/P Narrative: A: *Etoh W/D (h/o etoh abuse): *Lactic acidosis: 2/2 above + volume depletion + likely liver dz *Volume Depletion: *JERROD on CKD II: *Hyponatremia/Hypophos/Hypomag: *HTN/HLD: *Chronic pancreatitis: *Fatty liver: *BPH/GERD: *Depression/anxiety: *Pre-Diabetes: P: -The patient's IV thiamine will be discontinued. I switched his Librium to 25 mg p.o. 3 times daily for today. We will add a lipase due to abdominal pain. He will be transferred to [facility] [place]. -pending am labs -IVF's -CIWA with prn benzo., vitamins/minerals -prn clonidine -monitor vitals closely -Aggressively treat electrolyte abnormalities and trend -monitor renal fxn, uop/fluid balance -SSI -hold ARB for jerrod -PT/OT -ppx: Lovenox / home PPI Time Spent With Patient Time: Total time spent is greater than 50% in coordination of care (as documented) at patient's floor/unit and/or counseling patient: Subsequent: Total time with patient: 25 - 34 minutes QUALITY VTE Deep Vein Thrombosis/Pulmonary Embolism Present on Admission: No
[2022-03-24] MEDS: HYDROcodone/APAP 5/325MG TABLET PO PRN ×3 (14:19→23:56)
[2022-03-24] MEDS: traZODone HCL 50 MG TABLET PO PRN (21:18)
[2022-03-24] MEDS: NORTRIPTYLINE 10 MG CAPSULE PO SCH (21:19)
[2022-03-25] MEDS: HYDROcodone/APAP 5/325MG TABLET PO PRN (03:53)
[2022-03-25] MEDS: 0.9 % SODIUM CHLORIDE 10 ML SYRINGE IV SCH ×4 (03:53→20:13)
--- NOTE | 2022-03-25 06:02 | Internal Med Progress Note ---
SUBJECTIVE Subjective Patient information: Note initiated : 03/25/22 at 6:00 am Service Date, if different from initiated Date: [] Patient: Cruz Mccormick 66 y/o M admitted on 03/22/22 for kidney iss ues/Abdominal pain. Chief Complaint: [] Principal diagnosis: EtOH withdrawal Interval history: Patient is stable, ongoing abdominal pain. Constitutional Vitals: Vital Signs Temp Pulse Resp BP Pulse Ox O2 Del Method 97.7 F 95 H 18 153/91 98 Room Air 03/25/22 03:30 03/25/22 03:30 03/25/22 03:30 03/25/22 03:30 03/25/22 03:30 03/25/22 03:30 Period Temp Pulse Resp BP Sys/Haque Pulse Ox O2 Del Method O2 Flow Rate Last 24 Hr 97.2 F-98.6 F 84-121 10-22 145-161/73-98 94-100 Room Air-Room Air Intake and Output 03/24/22 03/25/22 03/25/22 19:59 03:59 11:59 Intake Total 240 150 Output Total 1075 250 Balance -835 -100 Weight 75.432 kg Intake & Output: Intake & Output 03/24/22 03/25/22 03/25/22 19:59 03:59 11:59 Intake Total 240 150 Output Total 1075 250 Balance -835 -100 Weight 75.432 kg Intake: Nourishment/Supplement quantity 240 (ml) Oral 150 Output: Void Amount 1075 250 Other: Meal Dinner Percent of Meal Consumed 75% Feeding Ability Independent Nourishment/Supplement name Ensure Urine Appearance Clear Clear Urine Color Yellow Yellow Stool Size Small Stool Consistency Loose # Voids 1 1 # Bowel Movements 1 Head Head exam: Present atraumatic and normal inspection Eye Eye exam: Present normal appearance ENT ENT exam: Present mucous membranes moist, normal exam and normal external ear exam Neck Neck exam: Present normal inspection Respiratory Respiratory exam: Present normal respiratory exam Cardiovascular Cardiovascular exam: Present normal rate and rhythm GI/Abdominal GI/Abdominal exam: Present normal bowel sounds, soft, distended and tenderness Back Exam Back exam: Present normal inspection Neurological Exam Neurological exam: Present alert and oriented X3 Skin Skin exam: Present intact and warm OBJ DATA Labs 03/24/22 05:30 03/24/22 05:29 Labs: Abnormal Lab Results 03/24/22 03/24/22 03/24/22 05:30 05:29 05:29 WBC RBC 3.96 L Hgb 12.7 L Hct 35.7 L MCHC RDW Plt Count 74 L Neut % (Auto) Lymph % (Auto) Lymph # (Auto) Absolute Neutrophils PT POC VBG pCO2 at Temp POC VBG pO2 POC VBG HCO3 POC VBG Total CO2 POC Venous O2 Sat POC VBG Base Excess VBG Lactic Acid Sodium 132 L POC Total CO2 POC Creatinine Glucose 153 H POC Glucose Hemoglobin A1c Calcium 7.8 L POC WB Ioniz Calcium Phosphorus Magnesium Total Bilirubin Direct Bilirubin GGT AST Total Protein Albumin Triglycerides Lipase 135 H Urine Protein Urine Ketones Urine Occult Blood Urine WBC Hyaline Casts Granular Casts Urine Mucus 03/23/22 03/23/22 03/22/22 05:05 05:05 15:41 WBC RBC 3.61 L Hgb 11.7 L Hct 31.9 L MCHC 36.7 H RDW Plt Count 93 L Neut % (Auto) Lymph % (Auto) Lymph # (Auto) 1.49 L Absolute Neutrophils PT POC VBG pCO2 at Temp POC VBG pO2 POC VBG HCO3 POC VBG Total CO2 POC Venous O2 Sat POC VBG Base Excess VBG Lactic Acid 4.3 H* Sodium POC Total CO2 POC Creatinine Glucose 153 H POC Glucose Hemoglobin A1c Calcium 7.1 L POC WB Ioniz Calcium Phosphorus 1.5 L Magnesium 1.3 L Total Bilirubin 1.1 H Direct Bilirubin 0.3 H GGT 423 H AST 56 H Total Protein 5.3 L Albumin 2.9 L Triglycerides 307 H Lipase Urine Protein Urine Ketones Urine Occult Blood Urine WBC Hyaline Casts Granular Casts Urine Mucus 03/22/22 03/22/22 03/22/22 13:55 12:29 10:40 WBC RBC Hgb Hct MCHC RDW Plt Count Neut % (Auto) Lymph % (Auto) Lymph # (Auto) Absolute Neutrophils PT POC VBG pCO2 at Temp 36.7 L POC VBG pO2 22 L POC VBG HCO3 23.2 L POC VBG Total CO2 24.0 L POC Venous O2 Sat 37.0 L POC VBG Base Excess VBG Lactic Acid 3.6 H 4.1 H* Sodium POC Total CO2 POC Creatinine Glucose POC Glucose Hemoglobin A1c Calcium POC WB Ioniz Calcium Phosphorus Magnesium Total Bilirubin Direct Bilirubin GGT AST Total Protein Albumin Triglycerides Lipase Urine Protein 100 A Urine Ketones 15 A Urine Occult Blood Trace-intact A Urine WBC 6 H Hyaline Casts 9 H Granular Casts 32 H Urine Mucus Mod A 03/22/22 03/22/22 03/22/22 10:39 10:36 10:35 WBC RBC Hgb Hct MCHC RDW Plt Count Neut % (Auto) Lymph % (Auto) Lymph # (Auto) Absolute Neutrophils PT POC VBG pCO2 at Temp 28.5 L POC VBG pO2 57 H POC VBG HCO3 18.6 L POC VBG Total CO2 19.0 L POC Venous O2 Sat 90.0 H POC VBG Base Excess -6.0 L VBG Lactic Acid 8.7 H* Sodium POC Total CO2 19.0 L POC Creatinine 1.4 H Glucose POC Glucose 219 H Hemoglobin A1c Calcium POC WB Ioniz Calcium 1.00 L Phosphorus Magnesium Total Bilirubin 1.1 H Direct Bilirubin 0.3 H GGT AST 85 H Total Protein Albumin Triglycerides Lipase Urine Protein Urine Ketones Urine Occult Blood Urine WBC Hyaline Casts Granular Casts Urine Mucus 03/22/22 03/22/22 03/22/22 10:34 10:34 10:34 WBC RBC Hgb Hct MCHC RDW Plt Count Neut % (Auto) Lymph % (Auto) Lymph # (Auto) Absolute Neutrophils PT 14.8 H POC VBG pCO2 at Temp POC VBG pO2 POC VBG HCO3 POC VBG Total CO2 POC Venous O2 Sat POC VBG Base Excess VBG Lactic Acid Sodium POC Total CO2 POC Creatinine Glucose POC Glucose Hemoglobin A1c 6.2 H Calcium POC WB Ioniz Calcium Phosphorus Magnesium 1.4 L Total Bilirubin Direct Bilirubin GGT AST Total Protein Albumin Triglycerides Lipase Urine Protein Urine Ketones Urine Occult Blood Urine WBC Hyaline Casts Granular Casts Urine Mucus 03/22/22 10:34 WBC 11.7 H RBC Hgb Hct MCHC 36.4 H RDW 14.9 H Plt Count Neut % (Auto) 84.8 H Lymph % (Auto) 10.8 L Lymph # (Auto) 1.26 L Absolute Neutrophils 9.93 H PT POC VBG pCO2 at Temp POC VBG pO2 POC VBG HCO3 POC VBG Total CO2 POC Venous O2 Sat POC VBG Base Excess VBG Lactic Acid Sodium POC Total CO2 POC Creatinine Glucose POC Glucose Hemoglobin A1c Calcium POC WB Ioniz Calcium Phosphorus Magnesium Total Bilirubin Direct Bilirubin GGT AST Total Protein Albumin Triglycerides Lipase Urine Protein Urine Ketones Urine Occult Blood Urine WBC Hyaline Casts Granular Casts Urine Mucus Meds: Medications Hydrocodone Bitart/Acetaminophen (Hydrocodone/Apap 5/325mg Tablet) 1 tab PO Q4HP PRN PRN Reason: PAIN LEVEL 3-6 Last Admin: 03/25/22 03:53 Dose: 1 tab Albuterol/Ipratropium (Ipratropium/Albuterol 3 Ml Ampul.Neb) 3 ml NEB Q4HP PRN PRN Reason: Shortness Of Breath Allopurinol (Allopurinol 100 Mg Tablet) 100 mg PO QDAY [facility] Last Admin: 03/24/22 09:19 Dose: Not Given Chlordiazepoxide HCl (Chlordiazepoxide 25 Mg Capsule) 25 mg PO TID [facility]; Protocol Last Admin: 03/24/22 21:18 Dose: 25 mg Clonidine HCl (Clonidine Hcl 0.1 Mg Tablet) 0.1 mg PO Q4HP PRN PRN Reason: ALC Last Admin: 03/22/22 20:13 Dose: 0.1 mg Dextrose (Dextrose 50% 50 Ml Vial) 0 ml IV UD PRN PRN Reason: Per Sliding Scale Diagnostic Test (Pha) (Accu-Chek 1 Each Strip) 1 each FS ACHS [facility] Last Admin: 03/24/22 21:26 Dose: 1 each Dicyclomine HCl (Dicyclomine 20 Mg Tablet) 10 mg PO BID [facility] Last Admin: 03/24/22 21:18 Dose: 10 mg Enoxaparin Sodium (Enoxaparin 40 Mg/0.4 Ml Syringe) 40 mg SQ DAILY [facility] Last Admin: 03/24/22 07:42 Dose: 40 mg Folic Acid (Folic Acid 1 Mg Tablet) 1 mg PO DAILY [facility] Last Admin: 03/24/22 09:18 Dose: Not Given Gabapentin (Gabapentin 300 Mg Capsule) 300 mg PO QDAY [facility] Last Admin: 03/24/22 09:18 Dose: Not Given Glucose (Dextrose 31 Gm Oral.Susp) 15 gm PO PRN PRN PRN Reason: Hypoglycemia Magnesium Sulfate (Magnesium Sulfate) 2 gm in 50 mls @ 50 mls/hr IV UD PRN PRN Reason: Magnesium </= 1.6 Last Infusion: 03/23/22 11:16 Dose: Infused Potassium Chloride 40 meq/ (Dextrose) 520 mls @ 130 mls/hr IV UD PRN PRN Reason: Potassium < 3 Insulin Human Lispro (Insulin Lispro 1 Unit/0.01 Ml Unit) 0 unit SQ ACHS [facility]; Protocol Last Admin: 03/24/22 21:27 Dose: 2 unit Iron Carb/Multivit/[place]/Folic Acid (Multivit,Ther Iron,Ca,Fa & Min 1 Tablet) 1 tab PO DAILY [facility] Last Admin: 03/24/22 09:18 Dose: Not Given Lorazepam (Lorazepam 2 Mg/Ml Vial) 0 mg IV UD PRN; Protocol PRN Reason: Alcohol Withdrawal/Assess CIWA Lorazepam (Lorazepam 2 Mg/Ml Vial) 0.5 mg IV Q4-6HP PRN PRN Reason: ANXIETY/SEDATION Last Admin: 03/23/22 11:41 Dose: 0.5 mg Nortriptyline HCl (Nortriptyline 10 Mg Capsule) 10 mg PO HS [facility] Last Admin: 03/24/22 21:19 Dose: 10 mg Omeprazole (Omeprazole 20 Mg Capsule) 20 mg PO QAMAC [facility] Last Admin: 03/24/22 07:41 Dose: 20 mg Ondansetron HCl (Ondansetron 4 Mg/2 Ml Vial) 4 mg IV Q4HP PRN PRN Reason: Nausea And Vomiting Last Admin: 03/23/22 04:34 Dose: 4 mg Lipase-Protease- Amylase [Creon] 36, 000-114,000- 180,000 3 dose PO AC [facility] Last Admin: 03/24/22 16:45 Dose: 3 dose Potassium Chloride (Potassium Chloride 20 Meq Tablet) 40 meq PO UD PRN PRN Reason: Potassium < 3 Potassium Chloride (Potassium Chloride 20 Meq Tablet) 40 meq PO UD PRN PRN Reason: Potssium is 3-3.5 Simvastatin (Simvastatin 10 Mg Tablet) 10 mg PO QDAY [facility] Last Admin: 03/24/22 09:19 Dose: Not Given Sodium Chloride (0.9 % Sodium Chloride 10 Ml Syringe) 10 ml IV Q8 [facility] Last Admin: 03/25/22 03:53 Dose: 10 ml Trazodone HCl (Trazodone Hcl 50 Mg Tablet) 50 mg PO HSP PRN PRN Reason: sleep Last Admin: 03/24/22 21:18 Dose: 50 mg A/P Narrative A/P Narrative: A: *Etoh W/D (h/o etoh abuse): *Lactic acidosis: 2/2 above + volume depletion + likely liver dz *Volume Depletion: *JERROD on CKD II: *Hyponatremia/Hypophos/Hypomag: *HTN/HLD: *Chronic pancreatitis: *Fatty liver: *BPH/GERD: *Depression/anxiety: *Pre-Diabetes: P: -The patient's IV thiamine will be discontinued. D/C Librium to 25 mg p.o. 3 times daily for today. Lipase pending. He will be transferred to [facility] [place]. -IVF's -CIWA with prn benzo., vitamins/minerals -prn clonidine -monitor vitals closely -Aggressively treat electrolyte abnormalities and trend -monitor renal fxn, uop/fluid balance -SSI -hold ARB for jerrod -PT/OT -ppx: Lovenox / home PPI Time Spent With Patient Time: Total time spent is greater than 50% in coordination of care (as documented) at patient's floor/unit and/or counseling patient: Subsequent: Total time with patient: 25 - 34 minutes QUALITY VTE Deep Vein Thrombosis/Pulmonary Embolism Present on Admission: No
[2022-03-25] MEDS: OMEPRAZOLE 20 MG CAPSULE PO SCH (08:00)
[2022-03-25] MEDS: INSULIN LISPRO 1 UNIT/0.01 ML UNIT SQ SCH ×4 (08:01→20:13)
[2022-03-25] MEDS: LIPASE PROTEASE AMYLASE PO SCH ×5 (08:07→20:14)
[2022-03-25] MEDS: GABAPENTIN 300 MG CAPSULE PO SCH (10:25)
[2022-03-25] MEDS: MULTIVIT,THER IRON,CA,FA & MIN 1 TABLET PO SCH (10:26)
[2022-03-25] MEDS: ALLOPURINOL 100 MG TABLET PO SCH (10:26)
[2022-03-25] MEDS: FOLIC ACID 1 MG TABLET PO SCH (10:26)
[2022-03-25] MEDS: ENOXAPARIN 40 MG/0.4 ML SYRINGE SQ SCH (10:27)
[2022-03-25] MEDS: DICYCLOMINE 20 MG TABLET PO SCH ×2 (10:27→20:12)
[2022-03-25] MEDS: SIMVASTATIN 10 MG TABLET PO SCH (10:27)
[2022-03-25] MEDS: cloNIDine HCL 0.1 MG TABLET PO PRN (10:28)
[2022-03-25] MEDS: NORTRIPTYLINE 10 MG CAPSULE PO SCH (20:13)
[2022-03-25] MEDS: traZODone HCL 50 MG TABLET PO PRN (20:19)
[2022-03-26] MEDS: LORazepam 2 MG/ML VIAL IV PRN (00:08)
[2022-03-26] MEDS: OMEPRAZOLE 20 MG CAPSULE PO SCH (07:25)
[2022-03-26] MEDS: INSULIN LISPRO 1 UNIT/0.01 ML UNIT SQ SCH (07:38)
[2022-03-26] MEDS: 0.9 % SODIUM CHLORIDE 10 ML SYRINGE IV SCH (07:38)
[2022-03-26] MEDS: LIPASE PROTEASE AMYLASE PO SCH (07:44)
[2022-03-26] MEDS: DICYCLOMINE 20 MG TABLET PO SCH (10:00)
[2022-03-26] MEDS: GABAPENTIN 300 MG CAPSULE PO SCH (10:00)
[2022-03-26] MEDS: SIMVASTATIN 10 MG TABLET PO SCH (10:00)
[2022-03-26] MEDS: ALLOPURINOL 100 MG TABLET PO SCH (10:00)
[2022-03-26] MEDS: FOLIC ACID 1 MG TABLET PO SCH (10:00)
[2022-03-26] MEDS: MULTIVIT,THER IRON,CA,FA & MIN 1 TABLET PO SCH (10:00)
[2022-03-26] MEDS: ENOXAPARIN 40 MG/0.4 ML SYRINGE SQ SCH (10:19)
--- NOTE | 2022-03-26 10:37 | Discharge Summary ---
Discharge Provider Provider IMPORTANT FOLLOW-UP INFORMATION FOR PCP: 1. Behavioral health f/u set up by [employer] Patient information: Note initiated : 03/26/22 at 10:34 am Service Date, if different from initiated Date: [] Patient: Cruz Mccormick 66 y/o M admitted on 03/22/22 for kidney issues/Abdominal pain. Chief Complaint: [] Date of admission: 03/22/22 17:48 Discharge date: 03/26/22 Primary care physician: Cordell Cruz MD Admitting clinician: Etienne Bae Consults: 03/22/22 16:32 Consult to Physician [CONS] Stat Comment: Consulting Provider: Etienne Bae Reason For Exam: Physician to Consult Attending physician on discharge: Ace Tania COURSE Hospital Course Hospital course: The patient was hospitalized for alcohol withdrawal. He was initially placed on CIWA protocol and scheduled Librium. Of note he was also complaining of abdominal pain however CT abdomen pelvis was unrevealing and his lipase was close to 100. There is no evidence of pancreatitis. The patient has clinically improved and will be discharged home with behavioral health follow-up. A/P Narrative: A: *Etoh W/D (h/o etoh abuse): *Lactic acidosis: 2/2 above + volume depletion + likely liver dz *Volume Depletion: *JERROD on CKD II: *Hyponatremia/Hypophos/Hypomag: *HTN/HLD: *Chronic pancreatitis: *Fatty liver: *BPH/GERD: *Depression/anxiety: *Pre-Diabetes: P: -The patient's IV thiamine will be discontinued. D/C Librium to 25 mg p.o. 3 times daily for today. Lipase pending. He will be transferred to [facility]. -IVF's -CIWA with prn benzo., vitamins/minerals -prn clonidine -monitor vitals closely -Aggressively treat electrolyte abnormalities and trend -monitor renal fxn, uop/fluid balance -SSI -hold ARB for jerrod -PT/OT -ppx: Lovenox / home PPI Discharge diagnosis: Alcohol withdrawal Time Spent with Patient Time attestation: Total time spent providing and/or coordinating discharge services: Time spent: Greater than 30 minutes EXAM Constitutional Vitals: Temp Pulse Resp BP Pulse Ox O2 Del Method 97.7 F 93 H 16 172/80 94 Room Air 03/26/22 09:41 03/26/22 03:30 03/26/22 03:30 03/26/22 09:41 03/26/22 07:28 03/26/22 09:41 General appearance: average body habitus Head Head exam: Present atraumatic, normal inspection and normocephalic Eye Eye exam: Present EOMI, normal appearance and PERRL; Absent conjunctival i njection ENT ENT exam: Present normal exam; Absent mucous membranes dry Neck Neck exam: Present full ROM; Absent lymphadenopathy Respiratory Respiratory exam: Present normal respiratory exam and CTAB; Absent decreased breath sounds, respiratory distress or wheezes Cardiovascular Cardiovascular exam: Present normal rate and rhythm and RRR; Absent JVD GI/Abdominal GI/Abdominal exam: Present normal bowel sounds and soft; Absent diminished bowel sounds, distended, guarding, mass, rebound or tenderness Neurological Exam Neurological exam: Present alert, CN II-XII intact and oriented X3 Psychiatric Psychiatric exam: Present normal affect and normal mood Skin Skin exam: Present intact and warm; Absent erythema, pallor, petechiae or rash Discharge Data Data Completed and Pending Labs on day of discharge: Preliminary micro results at discharge 03/22/22 16:44 Blood Culture - Preliminary Blood 03/22/22 16:30 Blood Culture - Preliminary Blood Discharge Plan Patient/Caregiver Discharge Instructions Activity: increase activity as tolerated Instructions: Abuse of Alcohol (DC) Prescriptions: Continued acyclovir 400 mg tablet 400 mg PO TID PRN (Reason: cold sores) Qty: 15 2RF Rx Instructions: Take at the first sign of cold sore for 5 days cholecalciferol (vitamin D3) 25 mcg (1,000 unit) capsule 25 mcg PO QDAY omeprazole 20 mg capsule,delayed release(DR/EC) 20 mg PO QDAY Qty: 90 1RF allopurinol 100 mg tablet 100 mg PO QDAY Qty: 90 1RF pravastatin 20 mg tablet 20 mg PO QDAY Qty: 90 1RF trazodone 50 mg tablet 50 mg PO QHS PRN (Reason: sleep) Qty: 90 1RF losartan 25 mg tablet 25 mg PO QDAY Qty: 90 1RF gabapentin 300 mg capsule 300 mg PO QDAY nortriptyline 10 mg capsule 10 mg PO HS dicyclomine 10 mg capsule 10 mg PO BID Creon 36,000-114,000- 180,000 unit capsule,delayed release(DR/EC) 3 cap PO AC tadalafil 20 mg tablet 10 - 20 mg PO QDP PRN (Reason: Sexual Activity) Follow Up Plan Follow up with: Irasema Reyes DO [Physician] - 04/01/22 2:30 pm Cordell Cruz MD [Primary Care Provider] - (The office will call you with an appointment.) Patient Disposition: Home, Self-Care I certify that the patient requires SNF services: No Overall status at discharge: patient is progressing back to baseline Discharge Orders: Discharge Order (Routine); Ordered 03/26/22 Ordered By: Ace MORENO VTE Deep Vein Thrombosis/Pulmonary Embolism Present on Admission: No
== END 2022-03-26 12:05 | disposition home or self-care (01) | DRG 897 ==
LOC: ED 10:00 → ICU 16:48 → MEDSUR 03-24 13:20
PROVIDERS: ADMIT Internal Medicine; ATTEND Student in an Organized Health Care Education/Training Program